=== PATIENT | female | born 1965 | race Caucasian/White ===

== ENCOUNTER 2021-03-31 09:47 | Inpatient (IN) | payer MEDICARE, SELFPAY ==
[2021-03-31] VITALS (8 sets, daily range): BP systolic 142–226; BP diastolic 68–97; PULSE 73–117; RESP 16–20; TEMP 36.8–37; O2SAT 90–98; BMI 25.0; BMI 25.9; BMI 24.9
--- NOTE | 2021-03-31 | IR_ITS ---
APPROVED REPORT Patient Location: Inpatient Radio Electronics Officer: MAHI Rosario RT (R) PROCEDURES Catheter placement in the left common iliac artery Left common iliac. External iliac. And common femoral artery angiography Catheter placement in the left superficial femoral artery Left superficial femoral artery antegrade angiogram with unilateral runoff to the left foot INDICATION Gage claudication class , Preoperative evaluation for transmetatarsal amputation Informed consent was obtained prior to the procedure. COMPLICATIONS None Estimated Blood Loss: Less than 10 ML TECHNIQUE 1% lidocaine used anesthetize right groin the right from artery was accessed via the Salinger technique and a five Greenlandic sheath was placed in the right femoral artery. A rim catheter was placed in the left common iliac artery where unilateral iliofemoral angiography was performed. Under fluoroscopic guidance the catheter was advanced into the left superficial femoral artery where the left superficial femoral artery antegrade angiography was performed with unilateral runoff to the left foot. At the end of the procedure the apparatus was removed the sheath was removed good hemostasis was achieved using manual pressure patient was transferred to the postop already in stable condition. ANGIOGRAPHIC RESULTS Left common internal and external iliac arteries are widely patent Left common femoral artery is widely patent with mild eccentric 10% calcified stenosis Left profunda femoris artery is widely patent Left superficial femoral artery is widely patent with diffuse nonflow limiting 40% stenoses throughout. At Karl's canal there is an additional 40% stenosis as the artery transitions into the popliteal artery. Left popliteal artery is widely patent with diffuse 30% stenoses Left PT trunk has 30% stenosis Left anterior tibialis artery is widely patent with nonflow limiting mild atherosclerotic plaque. The vessel terminates into the dorsalis pedis artery. The midportion of the dorsalis pedis artery has a mid vessel subtotal occlusion. Distally there is good phalangeal perfusion of the first four great toes Left peroneal artery is widely patent with a mid vessel 80% stenosis which is nonflow limiting. There is excellent antegrade flow into the proximal portion of the left foot Left posterior tibialis artery is proximally subtotally occluded and then completely occluded in its mid segment but then reconstitutes distally from collaterals from the AT and peroneal artery. It then enters into the left posterior tibial artery and enters the foot IMPRESSION Peripheral artery disease as described above Patent 2-1/2 vessel runoff into the left foot Patient primarily has a small vessel microvasculopathy which is not amenable to either surgical nor percutaneous revascularization at this time due to the lack of macrovascular focal disease PLAN 1. From a percutaneous or surgical standpoint there is nothing which can be invasively performed which will improve patient's [place] circulation. Based on the angiogram it appears as though patient would heal a transmetatarsal amputation without difficulty 2. Recommend LDL less than fifty-five 3. Aggressive control of risk factors especially aggressive perioperative glycemic control 4. Following amputation patient should continue on Xarelto 2.5 mg p.o. twice daily plus aspirin 81 mg daily 5. Avoidance of tobacco products 6. Physical therapy Electronically signed by : Cliff Wallis MD 03/31/2021 23:14:40
--- NOTE | 2021-03-31 10:17 | HMH.EDGENADL ---
ED Disposition Clinical Impression: Osteomyelitis Qualifiers: Osteomyelitis type: unspecified type Osteomyelitis location: foot Laterality: left Qualified Code(s): M86.9 - Osteomyelitis, unspecified Disposition: Admitted As Inpatient Condition on Discharge: Fair Instructions: DI for Laceration Repair Referrals: Provider,Referral, [Primary Care Provider] - - Critical Care Critical Care Time: No Attestation: On 03/31/21, the high probability of a clinically significant, sudden or life threatening deterioration of the following system(s) required my full and direct attention, intervention and personal management. The time I documented below is in addition to time spent performing reported procedures but includes the following listed in this critical care notation. Medical Decision Making - Medical Records Medical records reviewed: Yes: I reviewed the patient's medical records. - Eben Inquiry Pt receiving controlled substance: No Vital Signs: 03/31/21 09:48 03/31/21 11:01 03/31/21 12:49 Temperature 98.4 F Temperature Source Oral Pulse Rate 94 H Pulse Rate [Right Radial] 117 H Respiratory Rate 18 Blood Pressure 174/81 H Blood Pressure [Left Ankle] 162/88 H Blood Pressure [Left Arm] 226/90 H 154/70 H Blood Pressure [Right Ankle] 142/68 H Blood Pressure [Right Arm] 158/76 H Blood Pressure Mean [Left Ankle] 112 Blood Pressure Mean [Left Arm] 135 98 Blood Pressure Mean [Right Ankle] 92 Blood Pressure Mean [Right Arm] 103 Blood Pressure Source [Left Ankle] Manual Cuff/ Auscultation Blood Pressure Source [Left Arm] Automatic Cuff Manual Cuff/ Auscultation Blood Pressure Source [Right Ankle] Manual Cuff/ Auscultation Blood Pressure Source [Right Arm] Manual Cuff/ Auscultation Blood Pressure Position [Left Ankle] Supine Blood Pressure Position [Left Arm] Sitting Supine Blood Pressure Position [Right Ankle] Supine Blood Pressure Position [Right Arm] Supine 02 Sat by Pulse Oximetry 96 96 Oxygen Delivery Method Room Air Room Air - Lab Data Lab results reviewed: Yes: I reviewed the patient's lab results. Lab Results 03/31/21 10:27: VBG pH 7.37, VBG pCO2 42.5, VBG pO2 65.1 H, VBG HCO3 23.8, VBG Total CO2 25.1, VBG O2 Saturation 93.4 H, VBG Base Excess -1.6 03/31/21 11:50: WBC 9.5, RBC 4.82, Hgb 13.5, Hct 42.0, MCV 87.1, MCH 28.0, MCHC 32.1, RDW 13.3, Plt Count 369, MPV 7.6, Neut % (Auto) 76.2, Lymph % (Auto) 16.1, [place] % (Auto) 4.1, Eos % (Auto) 1.5, Baso % (Auto) 2.0, Neut # (Auto) 7.2, Lymph # (Auto) 1.5, [place] # (Auto) 0.4, Eos # (Auto) 0.1, Baso # (Auto) 0.2, ESR 88 H 03/31/21 11:50: Sodium 136, Potassium 3.9, Chloride 101, Carbon Dioxide 27, Anion Gap 11.9, BUN 18 H, Creatinine 0.60, Estimated Creat Clear 119, Estimated GFR 103, Est GFR ( Amer) 125, Glucose 179 H, Calcium 9.5, Total Bilirubin 0.5, AST 31, ALT 12, Alkaline Phosphatase 130 H, C-Reactive Protein 33.2 H, Total Protein 8.0, Albumin 4.4, Globulin 3.6 H, Albumin/Globulin Ratio 1.2 Result diagrams: 03/31/21 11:50 03/31/21 11:50 Orders (Tests/Meds): ED MEDICATIONS Generic Name Dose Route Start Last Admin Trade Name Freq PRN Reason Stop Dose Admin Piperacillin Sod/Tazobactam 100 mls @ 200 mls/hr 03/31/21 13:15 Sod 4.5 gm/ Sodium Chloride IV 04/14/21 13:14 Q6H EUGENIA Lactated Ringer's 500 mls @ 999 mls/hr 03/31/21 13:15 Lactated Ringer's 1000 Ml Bag IV 03/31/21 13:45 .Q31M EUGENIA Sodium Chloride 10 ml 03/31/21 11:40 Sodium Chloride 0.9% 10ml Flush Syringe IV 04/30/21 11:39 NEEDED PRN Maintain IV Site Vancomycin HCl 1,500 mg 04/01/21 09:00 Vancomycin 1000mg Vial IV 04/15/21 08:59 DAILY EUGENIA ORDERS Category Date Time Status CT foot LT wo con Stat Cat Scan 03/31/21 13:03 Ordered Lactic Acid Stat Lab 03/31/21 13:08 Ordered Blood Culture Stat Micro 03/31/21 13:13 Ordered Blood Culture Stat Micro 03/31/21 13:13 Ordered Medical Decis
--- NOTE | 2021-03-31 10:25 | XR_ITS ---
FINAL REPORT CLINICAL HISTORY: concern for osteo, OPEN SORES ON TOES, BLACK AREAS ON GREAT TOE FINDINGS: 2 views of the left foot were obtained. There is no acute fracture or dislocation. There are moderate degenerative changes. There is chronic deformity of the 2nd and 3rd metatarsals that may represent sequela of prior fractures. There appears to be inferior subluxation of the midfoot. There is no acute bony erosion to suggest osteomyelitis. There are calcaneal spurs. IMPRESSION: Degenerative and chronic changes. No findings to suggest osteomyelitis. If indicated, MRI would be more sensitive to evaluate for osteomyelitis. Reviewed, Interpreted and Dictated by Brien Jacobs III, MD Transcribed by Tristan Tee Authenticated by Brien Jacobs III, MD on 03/31/2021 11:37:45 AM [facility]
--- NOTE | 2021-03-31 10:25 | XR_ITS ---
FINAL REPORT CLINICAL HISTORY: concern for osteo, open sores on toes FINDINGS: Right foot series 2 views of the right foot were obtained. There are postoperative changes of amputation of the great toe at the first MTP joint. There are chronic appearing erosions of the fourth and fifth proximal phalanges. There is erosion of the fourth middle phalanx of indeterminate age. There is an old healed fracture of the fifth metatarsal. There is an old healed fracture of the second proximal phalanx. There is no acute fracture or dislocation. There are moderate degenerative changes. There are calcaneal spurs. There is no soft tissue abnormality. IMPRESSION: 1. Chronic appearing erosions of the fourth and fifth proximal phalanges. 2. Erosion of the fourth middle phalanx is age-indeterminate. Reviewed, Interpreted and Dictated by Brien Jacobs III, MD Transcribed by CLARK Obando Authenticated by Brien Jacobs III, MD on 03/31/2021 12:47:[address] [facility]
--- NOTE | 2021-03-31 10:29 | PC.NURSE ---
Pt gone to rad for xray.
--- NOTE | 2021-03-31 10:35 | PC.NURSE ---
Pt back from rad.
--- NOTE | 2021-03-31 10:36 | PC.NURSE ---
Dr. Graves would like to have a diabetic wound to L>R foot evaluation. Called Podiatry and Jennifer GOODMAN will consult d/t Dr. Garces out today.
--- NOTE | 2021-03-31 12:00 | PC.NURSE ---
Notified RT of blood being available in lab for VBG
[2021-03-31 12:05] LABS: Chloride 101 mmol/L (98-107)
[2021-03-31 12:06] LABS: VBG Base Excess -1.6 mmol/L (-2.4-2.3); VBG HCO3 23.8 mmol/L (23-30); VBG Oxygen Saturation 93.4 % (50-70); VBG PCO2 42.5 mmol/L (35-51); VBG PH 7.37 mmol/L (7.31-7.41); VBG PO2 65.1 mmol/L (28-40); VBG Total CO2 25.1 mmol/L (23-27)
[2021-03-31 12:06] LABS: Potassium 3.9 mmoL/L (3.5-5.1); Sodium 136 mmol/L (136-145)
[2021-03-31 12:08] LABS: Alanine Aminotransferase 12 U/L (12-78); Albumin Level 4.4 g/dl (3.5-5.0); Albumin/Globulin Ratio 1.2 (1.1-1.8); Alkaline Phosphatase 130 U/L (38-126); Anion Gap 11.9 mEq/L (5-15); Aspartate Amino Transferase 31 U/L (14-36); Bilirubin,Total 0.5 mg/dl (0.2-1.3); Blood Urea Nitrogen 18 mg/dl (7-17); Carbon Dioxide 27 mmol/L (22.0-30.0); Creatinine Clearance Estimated 119 mL/min (50-200); Estimated Glomerular Filt Rate 103 ml/min (>60); GFR (African American) 125 ML/MIN (>60); Globulin 3.6 g/dL (1.3-3.2)
[2021-03-31 12:09] LABS: Basophils # 0.2 K/mm3 (0-0.2); Calcium 9.5 mg/dl (8.4-10.2); Eosinophils # 0.1 K/mm3 (0.0-0.4); Eosinophils % 1.5 % (0.1-12.0); Glucose 179 mg/dl (74-100); Hemoglobin 13.5 g/dL (12.2-16.2); Lymphocytes # 1.5 K/mm3 (0.7-4.5); Lymphocytes % 16.1 % (10-50); Mean Corpuscular HGB Conc 32.1 g/dL (31.8-35.4); Mean Corpuscular Volume 87.1 fl (81-99); Mean Platelet Volume 7.6 fl (7.4-10.4); Monocytes # 0.4 K/mm3 (0.1-1.0); Monocytes % 4.1 % (1.7-9.3); Neutrophils # 7.2 K/mm3 (1.8-7.8); Neutrophils % 76.2 % (37.0-80.0); Platelet Count 369 K/mm3 (142-424); Red Blood Count 4.82 M/mm3 (4.20-5.40); Red Cell Distribution Width 13.3 % (11.5-17.5); White Blood Count 9.5 K/mm3 (4.8-10.8)
[2021-03-31 12:14] LABS: C-Reactive Protein 33.2 mg/L (0-4)
[2021-03-31 12:50] LABS: Erythrocyte Sedimentation Rate 88 mm/hr (0-30)
--- NOTE | 2021-03-31 13:01 | PC.NURSE ---
s/w Alma with Dr. Garces's office. She reports Dr. Garces would like CT L foot wo contrast. Also, is pt is adx she will not be on-call this weekend and earliest she can have any intervention is needed, would be Saturday (04/03).
--- NOTE | 2021-03-31 13:02 | PC.NURSE ---
Calling MD retention specialist for service at this time, Dr Driver.
--- NOTE | 2021-03-31 13:03 | CT_ITS ---
FINAL REPORT CLINICAL HISTORY: r/o osteomyelitis lt foot, attn lt great toe COMPARISON: Plain radiograph dated the same day FINDINGS: CT LEFT FOOT WITHOUT CONTRAST Technique: Axial images through the left foot were performed by computed tomography. Sagittal and coronal reconstruction images were performed. This study was performed with techniques to keep radiation doses as low as reasonably achievable (ALARA). Individualized dose reduction techniques using automated exposure control or adjustment of mA and/or kV according to the patient's size were employed. There are moderate degenerative changes. There is chronic deformity of the 2nd and 3rd metatarsals. There is no acute bony erosion. There is soft tissue swelling of the great toe with a small amount of soft tissue air. There is dorsal foot subcutaneous edema or cellulitis. IMPRESSION: Soft tissue swelling of the great toe with a small amount of soft tissue air. No acute bony erosion. Moderate degenerative change. Reviewed, Interpreted and Dictated by Brien Jacobs III, MD Transcribed by Tristan Tee Authenticated by Brien Jacobs III, MD on 03/31/2021 02:06:52 PM [facility]
--- NOTE | 2021-03-31 13:12 | PC.NURSE ---
Pt to CT
--- NOTE | 2021-03-31 13:13 | PC.NURSE ---
to pt CT scan via wheelchair
--- NOTE | 2021-03-31 13:16 | PC.NURSE ---
Dr. Graves s/w Dr. Driver, agrees for adx. Care management paged.
--- NOTE | 2021-03-31 13:16 | PC.NURSE ---
Labs and COVID swab sent to lab at this time
--- NOTE | 2021-03-31 13:18 | PC.NURSE ---
Spoke with Erin in Case Management to advise of admission
--- NOTE | 2021-03-31 13:21 | P.CONPHA_ITS ---
- Pharmacy Consult Date: 03/31/21 Time: 13:22 Referring provider: DR. AYALA Reason for Consult:: VANCOMYCIN DOSING Allergies and ADEs:: Allergies Allergy/AdvReac Type Severity Reaction Status Date / Time No Known Allergies Allergy Verified 03/31/21 10:30 Home Medications:: Home Medications Medication Instructions Recorded Confirmed Type No Known Home Medications 03/31/21 03/31/21 History Height: 1.7 m Weight: 72.575 kg Laboratory Results:: Laboratory Results - last 24 hr 03/31/21 10:27: VBG pH 7.37, VBG pCO2 42.5, VBG pO2 65.1 H, VBG HCO3 23.8, VBG Total CO2 25.1, VBG O2 Saturation 93.4 H, VBG Base Excess -1.6 03/31/21 11:50: WBC 9.5, RBC 4.82, Hgb 13.5, Hct 42.0, MCV 87.1, MCH 28.0, MCHC 32.1, RDW 13.3, Plt Count 369, MPV 7.6, Neut % (Auto) 76.2, Lymph % (Auto) 16.1, [place] % (Auto) 4.1, Eos % (Auto) 1.5, Baso % (Auto) 2.0, Neut # (Auto) 7.2, Lymph # (Auto) 1.5, [place] # (Auto) 0.4, Eos # (Auto) 0.1, Baso # (Auto) 0.2, ESR 88 H 03/31/21 11:50: Sodium 136, Potassium 3.9, Chloride 101, Carbon Dioxide 27, Anion Gap 11.9, BUN 18 H, Creatinine 0.60, Estimated Creat Clear 119, Estimated GFR 103, Est GFR ( Amer) 125, Glucose 179 H, Calcium 9.5, Total Bilirubin 0.5, AST 31, ALT 12, Alkaline Phosphatase 130 H, C-Reactive Protein 33.2 H, Total Protein 8.0, Albumin 4.4, Globulin 3.6 H, Albumin/Globulin Ratio 1.2 Assessment and Plan - Assessment and plan all Dx Assessment and Plan for all problems:: Pharmacokinetic dosing service Objective: Patient: Floor: Age: 55 yo Serum creatinine: 0.60 mg/dL Height: 66.9 Inches Weight (kg): 72.5 Assessment: IBW (kg): 61.37 Dosing wt(kg): 72.5 Estimated Creatinine clearance (ml/min): 100.2 CRCL method: Cockcroft and Gault using ibw(default). Drug selected: Vancomycin Loading dose (mg): Vd (liters): 50.8 (factor used: 0.7 L/kg) Geoffrey (hr-1): 0.088 Half life (hrs): 7.88 CLvanco=?? 4.470 L/hr Recommended dose: 1250 mg Interval: 12 hrs Infusion time (hrs): 2.0 Predicted peak (mcg/mL): 34.6 Predicted trough (mcg/mL): 14.35 Total body weight is being used for vancomycin dosing. Recommendations: Give Vancomycin 1250 mg q 12 hrs with an expected Cpeak of 34.6 mcg/ml and an expected Ctrough of 14.35 mcg/ml AUC 0-24 /ISAI Data: ISAI 0.5 mcg/mL:?? AUC/ISAI:? 1118.6 ISAI 1.0 mcg/mL:?? AUC/ISAI:? 559.3 --------- ISAI 1.5 mcg/mL:?? AUC/ISAI:? 372.9 ISAI 2.0 mcg/mL:?? AUC/ISAI:? 279.6 Thank you for the consult, will continue to follow. -WOOD COSTELLO, ROBIND
--- NOTE | 2021-03-31 14:33 | HMH.HP ---
*Admission Date: 03/31/21 <BharathKlarissa - 03/31/21 15:49> *Chief complaint: foot wound <Klarissa Sinha - 03/31/21 15:49> *History of present illness: Rajni is a 55-year-old female with a history of poorly controlled type 2 diabetes presenting for chief complaint of left foot wound. She states that for the past week, she has been having increasing skin changes on her left toe. She states it started off as a blister, which then popped and has now turned black with a area of worsening erythema. Patient also had an amputation of great toe on her right foot and has an open wound there but does not seem concerned. Patient states she is not compliant with her diabetes medications. She denies upper respiratory symptoms, chest pain, dyspnea, and/V/D, changes GI/. She denies unilateral leg swelling. She believes she had a fever at home but did not measure her temperature. Patient is a 55-year-old female with a history of hypertension and diabetes mellitus, with poor compliance with medications, presenting for chief complaint of left foot wound. Differential diagnosis includes, but is not limited to, diabetic foot infection, diabetic foot wound, osteomyelitis, arterial occlusion, other. Initial exam, patient is hypertensive and mildly tachycardic but states that she has not been compliant with her hypertension medications. She took her home dose. Patient is afebrile. Physical exam shows palpable DP pulses bilaterally. Patient has necrotic tissue on the lateral side of her great left toe with erythema extending towards the midfoot. She was evaluated with CBC, CMP, CRP, ESR and x-rays of both her feet. Diabetic wound care consult was placed. Patient's labwork is significant for elevated ESR of 88 and elevated CRP, raising concern for osteomyelitis despite no radiographic evidence on XR of feet. Wound care recommended evaluation with CT imaging. Given concern for osteomyelitis, patient was admitted for IV antibiotics. She was started on zosyn and vancomycin in the emergency department. (above as per ER physician) <Klarissa Sinha - 03/31/21 17:05> [facility] History I have reviewed the patient's past medical history: Yes <Klarissa Sinha 03/31/21 15:49> Medical History: Reports:: Diabetes Mellitus Type 2, Hyperlipidemia, Hypertension <Klarissa Sinha 03/31/21 17:05> *Have you ever received a pneumonia vaccine?: No <Klarissa Sinha 03/31/21 15:49> *Have you received a flu vaccine this season?: No <Klarissa Sinha 03/31/21 15:49> Other Surgeries: Yes: Tubal Ligation <Klarissa Sinha 03/31/21 17:05> Comment: right great toe amputation from foot ulcer <Klarissa Sinha 03/31/21 17:05> - *Social History Smoking Status: Current every day smoker <Klarissa Sinha 03/31/21 17:05> # Packs/Day (cigarettes): 1 <Klarissa Sinha 03/31/21 17:05> Alcohol Intake: never <Klarissa Sinha 03/31/21 17:05> *Occupational Status:: unemployed <Klarissa Sinha 03/31/21 17:05> *Travel in the last 8 weeks: None <Klarissa Sinha 03/31/21 17:05> Family Hx:: Diabetes <Klarissa Sinha 03/31/21 17:05> Review of Systems - Constitutional Reports chills, Reports fever(s), Reports weakness <Klarissa Sinha 03/31/21 17:05> - Eyes Denies blurry vision, Denies double vision <Klarissa Sinha 03/31/21 17:05> - ENT Denies nasal congestion, Denies sore throat <Klarissa Sinha 03/31/21 17:05> - *Cardiovascular Denies chest pain, Denies shortness of breath <Klarissa Sinha 03/31/21 17:05> - *Respiratory Denies cough, Denies shortness of breath <Klarissa Sinha 03/31/21 17:05> - *Gastrointestinal Denies abdominal pain, Denies loose stools, Denies nausea, Denies vomiting <Klarissa Sinha 03/31/21 17:05> - *Genitourinary Denies difficulty urinating, Denies painful urination <Klarissa Sinha 03/31/21 17:05> - *Musculoskeletal Reports joint pain (left foot) <Klarissa Sinha 03/31/21 17:05> - Integumentary/Breasts Reports skin ulcer (left great toe) <Phlebotomy Lab Assistant
--- NOTE | 2021-03-31 14:37 | US_ITS ---
FINAL REPORT CLINICAL HISTORY: WOUNDS RT 2ND TOE,WOUNDS LT GREAT TOE,LT 2ND AND 3RD TOE,LT GREAT TOE IS BLACK IN COLOR,RT GREAT TOE HAS BEEN AMPUTATED,DM,SMOKER,HTN,HLD FINDINGS: Ankle brachial indices was obtained. ANGELY on the right is 0.92 which is borderline. ANGELY on the left is 1.07 which is normal. IMPRESSION: Borderline ANGELY on the right. Normal ANGELY on the left. Reviewed, Interpreted and Dictated by Brien Jacobs III, MD Transcribed by Debbie Cottrell Authenticated by Brien Jacobs III, MD on 03/31/2021 04:09:18 PM [facility]
[2021-03-31 14:40] LABS: Coronavirus 19, PCR Not Detected (NotDetected); Influenza A, PCR Not Detected (NotDetected); Influenza B, PCR Not Detected (NotDetected)
[2021-03-31 14:52] LABS: POC Glucose,Bedside 106 (70-110)
--- NOTE | 2021-03-31 15:21 | PC.NURSE ---
Rashmi Sinha at bedside
--- NOTE | 2021-03-31 15:48 | PC.NURSE ---
dr. small at BS
--- NOTE | 2021-03-31 15:59 | P.CONPHA_ITS ---
[facility] Pharmacy VTE Monitoring - Patient Demographics Admission date: 03/31/21 Report Date: 03/31/21 Time: 15:59 Allergies/Adverse Reactions: Patient Allergies No Known Allergies Allergy (Verified 03/31/21 10:30) Height: 1.7 m Weight: 72 kg Patient Problems: Current Active Problems Osteomyelitis (Acute) - VTE Risk Labs: VTE Related Lab Results Hgb 13.5 g/dL (12.2-16.2) 03/31/21 11:50 Hct 42.0 % (37.0-47.0) 03/31/21 11:50 Plt Count 369 K/mm3 (142-424) 03/31/21 11:50 BUN 18 mg/dl (7-17) H 03/31/21 11:50 Creatinine 0.60 mg/dl (0.52-1.04) 03/31/21 11:50 Estimated Creat Clear 119 mL/min (50-200) 03/31/21 11:50 - Prophylaxis VTE Prophylaxis Ordered?: Yes Types of VTE Prophylaxis: TEDS Knee High Location of Applied Device: Right Leg
--- NOTE | 2021-03-31 16:45 | XR_ITS ---
PROCEDURE INFORMATION: Exam: XR Chest Exam date and time: 03/31/2021 4:45 PM Age: 55 years old Clinical indication: Pre-operative exam; Respiratory screening exam; Additional info: Surgical clearance TECHNIQUE: Imaging protocol: XR of the chest. Views: 2 views. COMPARISON: No relevant prior studies available. FINDINGS: Lungs: Unremarkable. No consolidation. Pleural spaces: Unremarkable. No pleural effusion. No pneumothorax. Heart/Mediastinum: Unremarkable. No cardiomegaly. Bones/joints: Unremarkable. IMPRESSION: No acute findings.
--- NOTE | 2021-03-31 17:13 | PC.NURSE ---
NOTIFED OF CONSULT
--- NOTE | 2021-03-31 17:38 | PC.WOUNDNOTE ---
Photos and assessment by Yenni Arevalo RN R amputated big toe with purulent drainage Eschar R internal big toe with extension to 2nd and 3rd toe
--- NOTE | 2021-03-31 18:53 | PC.NURSE ---
Bilateral foot wounds cleaned with urgical iodine, wrapped in kerlix. Please refer to wound care note. will pass on to next shift to change dressings as needed
--- NOTE | 2021-03-31 19:45 | PC.NURSE ---
bilateral LE wounds cleansed with sx iodine and wrapped in kerlix
--- NOTE | 2021-03-31 22:22 | PC.NURSE ---
PT OFF FLOOR VIA STRETCHER TO ACID BLEACHER W/STAFF @ [id number]
--- NOTE | 2021-03-31 23:42 | PC.NURSE ---
PT BACK TO FLOOR FROM CHIEF DISPATCHER AT THIS TIME.
[2021-04-01] VITALS (17 sets, daily range): BP systolic 121–216; BP diastolic 73–99; PULSE 76–102; RESP 16–18; TEMP 36.8–37.5; O2SAT 90–94; BMI 24.9
[2021-04-01 00:52] LABS: POC Glucose,Bedside 121 (70-110)
--- NOTE | 2021-04-01 01:31 | PC.NURSE ---
2223; metallurgical lab technician called and asked to get pt ready for metallurgical lab technician neymar, pt prepped for metallurgical lab technician for percutaneous intervention to lower extremity, pt shaved bilateral groin, pt verbalized understanding. pt taken to metallurgical lab technician via stretcher in satisfactory condition. report to metallurgical lab technician personnel given.
--- NOTE | 2021-04-01 05:57 | PC.NURSE ---
pt s/p percutaneus cath for pictures for surgery clearance, pt with dressing to right groin cdi, pt hypertensive post cath and hydralazine was given iv x1, fsbs 251 at 0400, pt with nausea and vomiting post cath and medicated with zofran, no n/v since noted. dressings to bilateral foot wounds. bilateral lower extremities warm to touch and cap refill noted <3sec. pulses are not easily palpable to bilateral lower extremities as upon admission.
[2021-04-01 06:31] LABS: Basophils % 0.2 % (0.1-2.0); Eosinophils % 0.1 % (0.1-12.0); Hemoglobin 12.3 g/dL (12.2-16.2); Lymphocytes # 0.4 K/mm3 (0.7-4.5); Lymphocytes % 3.8 % (10-50); Mean Corpuscular HGB Conc 31.6 g/dL (31.8-35.4); Mean Corpuscular Hemoglobin 28.1 pg (27.0-31.2); Mean Platelet Volume 7.7 fl (7.4-10.4); Monocytes # 0.2 K/mm3 (0.1-1.0); Monocytes % 1.4 % (1.7-9.3); Neutrophils # 10.7 K/mm3 (1.8-7.8); Neutrophils % 94.5 % (37.0-80.0); Platelet Count 336 K/mm3 (142-424); Red Blood Count 4.38 M/mm3 (4.20-5.40); Red Cell Distribution Width 13.3 % (11.5-17.5); White Blood Count 11.3 K/mm3 (4.8-10.8)
[2021-04-01 06:35] LABS: MANUAL DIFFERENTIAL MANUAL DIFFERENTIAL (MANUAL DIFF)
[2021-04-01 06:41] LABS: Chloride 103 mmol/L (98-107); Sodium 133 mmol/L (136-145)
[2021-04-01 06:42] LABS: Potassium 4.5 mmoL/L (3.5-5.1)
[2021-04-01 06:45] LABS: Anion Gap 13.5 mEq/L (5-15); Calcium 8.3 mg/dl (8.4-10.2); Carbon Dioxide 21 mmol/L (22.0-30.0); Glucose 233 mg/dl (74-100)
[2021-04-01 06:50] LABS: Blood Urea Nitrogen 17 mg/dl (7-17); Creatinine Clearance Estimated 88 mL/min (50-200); Estimated Glomerular Filt Rate 74 ml/min (>60); GFR (African American) 89 ML/MIN (>60)
[2021-04-01 07:07] LABS: Hypochromasia 1+; Lymphocytes % 11 % (10-50); Monocytes % 2 % (2-9); Neutrophils % 84 % (42-76); Platelet Estimate Normal; Total Cells Counted 100
--- NOTE | 2021-04-01 07:08 | ECG_ITS ---
APPROVED REPORT Exam: Resting ECG HR:87 bpm ECG Measurements Heart Rate 87 AXES ND 191 P 69 QRSd 94 QRS 37 QT 379 T 74 QTc 423 Conclusion SINUS RHYTHM POSSIBLE LEFT ATRIAL ENLARGEMENT [-0.1mV P-WAVE IN V1/V2] BORDERLINE ECG UNCONFIRMED REPORT Electronically signed by : Cody Mckeon MD 04/02/2021 14:35:31
[2021-04-01 07:49] LABS: Hemoglobin A1C 10.5 % (4.0-6.0)
--- NOTE | 2021-04-01 08:45 | HMH.ACPN2 ---
Internal Medicine - PN: Subj *Date: 04/01/21 *Time: 08:45 Interval history: Did not rest well. Complains of left low back pain since her vascular procedure yesterday. Exam Vital signs and Labs for Last 24 Hours: Temp Pulse Resp BP Pulse Ox 99.5 F 92 H 17 172/90 H 92 L 04/01/21 08:00 04/01/21 08:00 04/01/21 08:00 04/01/21 08:00 04/01/21 08:00 Laboratory Results - last 24 hr 03/31/21 10:27: VBG pH 7.37, VBG pCO2 42.5, VBG pO2 65.1 H, VBG HCO3 23.8, VBG Total CO2 25.1, VBG O2 Saturation 93.4 H, VBG Base Excess -1.6 03/31/21 11:50: WBC 9.5, RBC 4.82, Hgb 13.5, Hct 42.0, MCV 87.1, MCH 28.0, MCHC 32.1, RDW 13.3, Plt Count 369, MPV 7.6, Neut % (Auto) 76.2, Lymph % (Auto) 16.1, [place] % (Auto) 4.1, Eos % (Auto) 1.5, Baso % (Auto) 2.0, Neut # (Auto) 7.2, Lymph # (Auto) 1.5, [place] # (Auto) 0.4, Eos # (Auto) 0.1, Baso # (Auto) 0.2, ESR 88 H 03/31/21 11:50: Sodium 136, Potassium 3.9, Chloride 101, Carbon Dioxide 27, Anion Gap 11.9, BUN 18 H, Creatinine 0.60, Estimated Creat Clear 119, Estimated GFR 103, Est GFR ( Amer) 125, Glucose 179 H, Calcium 9.5, Total Bilirubin 0.5, AST 31, ALT 12, Alkaline Phosphatase 130 H, C-Reactive Protein 33.2 H, Total Protein 8.0, Albumin 4.4, Globulin 3.6 H, Albumin/Globulin Ratio 1.2 03/31/21 13:14: Lactate 1.0 03/31/21 13:14: SARS-CoV-2 (PCR) Not detected, Influenza A Untype (PCR) Not detected, Influenza Type B (PCR) Not detected 03/31/21 14:37: POC Glucose 106 03/31/21 21:24: POC Glucose 121 H 04/01/21 05:22: Hemoglobin A1c 10.5 H 04/01/21 05:22: WBC 11.3 H, RBC 4.38, Hgb 12.3, Hct 39.0, MCV 89.0, MCH 28.1, MCHC 31.6 L, RDW 13.3, Plt Count 336, MPV 7.7, Neut % (Auto) 94.5 H, Lymph % (Auto) 3.8 L, [place] % (Auto) 1.4 L, Eos % (Auto) 0.1, Baso % (Auto) 0.2, Neut # (Auto) 10.7 H, Lymph # (Auto) 0.4 L, [place] # (Auto) 0.2, Eos # (Auto) 0.0, Baso # (Auto) 0.0, Total Counted 100, Neutrophils % (Manual) 84 H, Band Neutrophils % 3.0, Lymphocytes % (Manual) 11, Monocytes % (Manual) 2, Platelet Estimate Normal, Hypochromasia 1+ 04/01/21 05:22: Sodium 133 L, Potassium 4.5, Chloride 103, Carbon Dioxide 21 L, Anion Gap 13.5, BUN 17, Creatinine 0.80 D, Estimated Creat Clear 88, Estimated GFR 74, Est GFR ( Amer) 89 D, Glucose 233 H D, Calcium 8.3 L I & O for Last 24 hours: Intake & Output 03/29/21 03/30/21 03/31/21 04/01/21 11:59 11:59 11:59 11:59 Intake Total 1810 / 1810 Output Total 600 / 600 Balance 1210 / 1210 Weight 160 lb 158 lb 11.725 oz Narrative: She is mildly hard of hearing. Appears in no acute distress. Chest with coarse breath sounds. Heart is regular. Exam of the left lower back shows mild bruising or discoloration. Mild tenderness around the SI area. Lower extremities show no edema. Dressing in place on foot wounds. Assessment and Plan (1) Osteomyelitis Status: Acute Qualifiers: Osteomyelitis type: unspecified type Osteomyelitis location: foot Laterality: left Qualified Code(s): M86.9 - Osteomyelitis, unspecified Category: Medical Code(s): M86.9 - Osteomyelitis, unspecified (2) Type 2 diabetes mellitus Status: Chronic Category: Medical Code(s): E11.9 - Type 2 diabetes mellitus without complications (3) Hypertension Status: Chronic Category: Medical Code(s): I10 - Essential (primary) hypertension (4) Hyperlipidemia Status: Chronic Category: Medical Code(s): E78.5 - Hyperlipidemia, unspecified (5) Noncompliance with medication regimen Status: Chronic Category: Medical Code(s): Z91.14 - Patient's other noncompliance with medication regimen (6) Tobacco abuse Status: Acute Category: Medical Code(s): Z72.0 - Tobacco use (7) Diabetic microangiopathy Status: Acute Category: Medical Code(s): E11.51 - Type 2 diabetes mellitus with diabetic peripheral angiopathy without gangrene - Assessment and plan all Dx Assessment and Plan for all problems:: Blood pressure is not well controlled. We will add Nor
--- NOTE | 2021-04-01 11:33 | PC.NURSE ---
spoke with Dr. Driver regarding resuming pt diet
--- NOTE | 2021-04-01 11:43 | HMH.ORTHOCON ---
*Admission Date: 03/31/21 *Reason for consult:: Left foot gangrene *History of present illness: Rajni is a 55-year-old female with a history of poorly controlled type 2 diabetes presenting for chief complaint of left foot wound. She states that for the past week, she has been having increasing skin changes on her left toe. She states it started off as a blister, which then popped and has now turned black with a area of worsening erythema. Patient also had an amputation of great toe on her right foot and has an open wound there but does not seem concerned. Patient states she is not compliant with her diabetes medications. She denies upper respiratory symptoms, chest pain, dyspnea, and/V/D, changes GI/. She denies unilateral leg swelling. She believes she had a fever at home but did not measure her temperature. Patient is a 55-year-old female with a history of hypertension and diabetes mellitus, with poor compliance with medications, presenting for chief complaint of left foot wound. Differential diagnosis includes, but is not limited to, diabetic foot infection, diabetic foot wound, osteomyelitis, arterial occlusion, other. Initial exam, patient is hypertensive and mildly tachycardic but states that she has not been compliant with her hypertension medications. She took her home dose. Patient is afebrile. Physical exam shows palpable DP pulses bilaterally. Patient has necrotic tissue on the lateral side of her great left toe with erythema extending towards the midfoot. She was evaluated with CBC, CMP, CRP, ESR and x-rays of both her feet. Diabetic wound care consult was placed. Patient's labwork is significant for elevated ESR of 88 and elevated CRP, raising concern for osteomyelitis despite no radiographic evidence on XR of feet. Wound care recommended evaluation with CT imaging. Given concern for osteomyelitis, patient was admitted for IV antibiotics. She was started on zosyn and vancomycin in the emergency department. [facility] History I have reviewed the patient's past medical history: Yes Medical History: Reports:: Diabetes Mellitus Type 2, Hyperlipidemia, Hypertension *Have you ever received a pneumonia vaccine?: No *Have you received a flu vaccine this season?: No Other Surgeries: Yes: Tubal Ligation - *Social History Smoking Status: Current every day smoker Tobacco Type: cigarettes # Packs/Day (cigarettes): 1 Alcohol Intake: never *Occupational Status:: unemployed Household Members: family *Travel in the last 8 weeks: None Family Hx:: Diabetes Review of Systems - Review of Systems Review of systems:: pertinent systems reviewed and negative unless documented below - Constitutional Reports fatigue - Eyes Denies blurry vision - ENT Denies abnormal hearing - *Cardiovascular Denies chest pain - *Respiratory Denies shortness of breath - *Gastrointestinal Reports nausea - *Genitourinary Denies abnormal periods - *Musculoskeletal Reports numbness - Integumentary/Breasts Reports hair loss, Reports nail changes, Reports non-healing lesions, Reports skin ulcer, Reports wounds - *Neurologic Reports numbness, Reports weakness, Reports other (Baseline numbness of of both feet ), Denies confusion, Denies localized weakness, Denies fainting Meds Home Medications Medication Instructions Recorded Confirmed Type No Known Home Medications 03/31/21 03/31/21 History Allergies Allergy/AdvReac Type Severity Reaction Status Date / Time No Known Allergies Allergy Verified 03/31/21 10:30 Exam Vital signs and Labs for Last 24 Hours: Temp Pulse Resp BP Pulse Ox 99.5 F 92 H 17 172/90 H 92 L 04/01/21 08:00 04/01/21 08:00 04/01/21 08:00 04/01/21 08:00 04/01/21 08:00 Laboratory Results - last 24 hr 03/31/21 10:27: VBG pH 7.37, VBG pCO2 42.5, VBG pO2 65.1 H, VBG HCO3 23.8, VBG Total CO2 25.1, VBG O2 Saturation 93.4 H, VBG Base Excess -1.6 03/31/21 11:50: WBC 9.5, RBC 4.82, Hgb 13.5, Hct 42.0, MCV
[2021-04-01 11:50] LABS: POC Glucose,Bedside 248 (70-110)
--- NOTE | 2021-04-01 17:00 | PC.NURSE ---
contacted MD regarding pt rash during vanc infusion. Ordered to stop Vanc
[2021-04-01 22:19] LABS: POC Glucose,Bedside 216 (70-110)
[2021-04-02] VITALS: BP 188/87; PULSE 101; RESP 19; TEMP 37.2; O2SAT 92
[2021-04-02 04:00] VITALS: BP 176/91; PULSE 94; RESP 17; TEMP 37.4; O2SAT 93
[2021-04-02 04:42] LABS: POC Glucose,Bedside 212 (70-110)
[2021-04-02 05:00] VITALS: BMI 23.8
[2021-04-02 08:00] VITALS: BP 161/78; PULSE 91; RESP 16; TEMP 37.2; O2SAT 92
--- NOTE | 2021-04-02 09:12 | HMH.ACPN2 ---
Internal Medicine - PN: Subj *Date: 04/02/21 *Time: 09:12 Interval history: No new complaints this morning. She broke out in a rash with her dose of vancomycin last evening and this was discontinued. Rash has since resolved. She has no previous history of allergic reactions. Exam Vital signs and Labs for Last 24 Hours: Temp Pulse Resp BP Pulse Ox 99.0 F 91 H 16 161/78 H 92 L 04/02/21 08:00 04/02/21 08:00 04/02/21 08:00 04/02/21 08:00 04/02/21 08:00 Laboratory Results - last 24 hr 04/01/21 08:40: POC Glucose 248 H 04/01/21 16:39: POC Glucose 216 H 04/02/21 04:23: POC Glucose 212 H I & O for Last 24 hours: Intake & Output 03/30/21 03/31/21 04/01/21 04/02/21 11:59 11:59 11:59 11:59 Intake Total 1930 / 1930 360 / 360 Output Total 1500 / 1500 700 / 700 Balance 430 / 430 -340 / -340 Weight 160 lb 158 lb 11.725 oz 152 lb Narrative: She appears in no distress. She is alert oriented. She is hard of hearing. Lungs are clear. Heart is regular. Assessment and Plan (1) Gangrene of left foot Status: Acute Category: Medical Code(s): I96 - Gangrene, not elsewhere classified (2) Diabetic microangiopathy Status: Acute Category: Medical Code(s): E11.51 - Type 2 diabetes mellitus with diabetic peripheral angiopathy without gangrene (3) Cellulitis of left foot Status: Acute Category: Medical Code(s): L03.116 - Cellulitis of left lower limb (4) Diabetic ulcer of right foot Status: Acute Category: Medical Code(s): E11.621 - Type 2 diabetes mellitus with foot ulcer; L97.519 - Non-pressure chronic ulcer of other part of right foot with unspecified severity (5) Osteomyelitis Status: Acute Qualifiers: Osteomyelitis type: unspecified type Osteomyelitis location: foot Laterality: left Qualified Code(s): M86.9 - Osteomyelitis, unspecified Category: Medical Code(s): M86.9 - Osteomyelitis, unspecified (6) Type 2 diabetes mellitus Status: Chronic Category: Medical Code(s): E11.9 - Type 2 diabetes mellitus without complications (7) Hypertension Status: Chronic Category: Medical Code(s): I10 - Essential (primary) hypertension (8) Hyperlipidemia Status: Chronic Category: Medical Code(s): E78.5 - Hyperlipidemia, unspecified (9) Noncompliance with medication regimen Status: Chronic Category: Medical Code(s): Z91.14 - Patient's other noncompliance with medication regimen (10) Tobacco abuse Status: Acute Category: Medical Code(s): Z72.0 - Tobacco use (11) PAD (peripheral artery disease) Status: Acute Category: Medical Code(s): I73.9 - Peripheral vascular disease, unspecified - Assessment and plan all Dx Assessment and Plan for all problems:: Vancomycin has been discontinued and she is started on clindamycin. Cardiology and podiatry consult notes reviewed. No plan for surgery tomorrow. Continue to monitor blood sugar and blood pressure which are improving. Patient is an acceptable medical risk to proceed with the planned surgery.
[2021-04-02 11:37] VITALS: BP 169/85; PULSE 94; RESP 16; TEMP 37.5; O2SAT 92
--- NOTE | 2021-04-02 14:09 | PC.NURSE ---
pt tolerated dressing change well. No foul odor noted from the sites of either foot. Pulses palpable to BLE.
[2021-04-02 16:00] VITALS: BP 169/98; PULSE 102; RESP 16; TEMP 37.7; O2SAT 92
[2021-04-02 20:00] VITALS: BP 186/78; PULSE 106; RESP 17; TEMP 37.2; O2SAT 92
[2021-04-02 22:51] LABS: POC Glucose,Bedside 151 (70-110)
[2021-04-03] VITALS (21 sets, daily range): BP systolic 103–173; BP diastolic 49–88; PULSE 79–99; RESP 16–20; TEMP 37.2–37.7; O2SAT 90–98; BMI 24.6
--- NOTE | 2021-04-03 04:50 | PC.NURSE ---
0300 iv to left forearm occluded and discontinued, abocath intact, new iv started above old one x1 stick #20g, pt tolerated well, flushed without difficulty, not signs of infiltration noted.
[2021-04-03 06:40] LABS: Basophils # 0.1 K/mm3 (0-0.2); Basophils % 0.4 % (0.1-2.0); Eosinophils % 0.1 % (0.1-12.0); Hematocrit 38.5 % (37.0-47.0); Hemoglobin 12.5 g/dL (12.2-16.2); Lymphocytes # 0.9 K/mm3 (0.7-4.5); Lymphocytes % 6.5 % (10-50); Mean Corpuscular HGB Conc 32.5 g/dL (31.8-35.4); Mean Corpuscular Hemoglobin 28.3 pg (27.0-31.2); Mean Corpuscular Volume 86.8 fl (81-99); Mean Platelet Volume 7.9 fl (7.4-10.4); Monocytes # 0.8 K/mm3 (0.1-1.0); Monocytes % 5.8 % (1.7-9.3); Neutrophils # 12.3 K/mm3 (1.8-7.8); Neutrophils % 87.2 % (37.0-80.0); Platelet Count 342 K/mm3 (142-424); Red Blood Count 4.43 M/mm3 (4.20-5.40); Red Cell Distribution Width 13.3 % (11.5-17.5); White Blood Count 14.1 K/mm3 (4.8-10.8)
[2021-04-03 06:47] LABS: MANUAL DIFFERENTIAL MANUAL DIFFERENTIAL (MANUAL DIFF)
[2021-04-03 06:58] LABS: Chloride 105 mmol/L (98-107); Potassium 3.4 mmoL/L (3.5-5.1); Sodium 133 mmol/L (136-145)
[2021-04-03 07:01] LABS: Anion Gap 5.4 mEq/L (5-15); Blood Urea Nitrogen 25 mg/dl (7-17); Calcium 8.2 mg/dl (8.4-10.2); Carbon Dioxide 26 mmol/L (22.0-30.0); Creatinine Clearance Estimated 58 mL/min (50-200); Estimated Glomerular Filt Rate 46 ml/min (>60); GFR (African American) 56 ML/MIN (>60); Glucose 106 mg/dl (74-100)
[2021-04-03 07:07] LABS: C-Reactive Protein 105.8 mg/L (0-4)
[2021-04-03 07:55] LABS: Erythrocyte Sedimentation Rate 105 mm/hr (0-30)
--- NOTE | 2021-04-03 08:09 | PC.NURSE ---
notified cardiology of consult
[2021-04-03 08:11] LABS: Lymphocytes % 7 % (10-50); Monocytes % 6 % (2-9); Neutrophils % 87 % (42-76); Total Cells Counted 100
[2021-04-03 08:12] LABS: Platelet Estimate Normal; RBC Morphology Normal
--- NOTE | 2021-04-03 08:25 | HMH.ORTHPN ---
Subjective Date: 04/03/21 <Jennifer Shah - 04/03/21 09:08> Time: 07:30 <Jennifer Shah 04/03/21 09:08> Principal diagnosis: left foot gangrene/Osteomyelitis <Jennifer Shah 04/03/21 09:08> Interval history: Patient seen and examined at bedside by and Jennifer Shah aprn. Patient resting in bed this morning. Alert and oriented x3. No distress noted. Discussed surgical intervention in detail with patient. Consent obtained for right foot incision and drainage, bilateral wound debridements, left transmetatarsal amputation, debridement of nonviable soft tissue and bone. Fot the condition of bilateral diabetic foot ulcers, gangrene, cellulits, and suspected osteomyelitis. Bilateral diabetic foot ulcer dressings removed, patient has necrotic tissue on the lateral side of her great left toe with erythema extending towards the midfoot. The right foot has an amputation noted to hallux , 2-4 toes have necrotic tissue noted, and cellulitis. Wounds dressed with soaked betadine, 4x4 and kirlex. Bilateral surgical sites ordonez. Patient remains NPO for surgery this afternoon. <Jennifer Shah - 04/03/21 09:36> PN: Obj Ex Vital signs: Temp Pulse Resp BP Pulse Ox 99.8 F H 85 16 159/77 H 93 L 04/03/21 08:00 04/03/21 08:00 04/03/21 08:00 04/03/21 08:00 04/03/21 08:00 <Brandi Garces - 04/03/21 09:53> Temp Pulse Resp BP Pulse Ox 99.8 F H 92 H 18 173/74 H 90 L 04/03/21 04:00 04/03/21 04:00 04/03/21 04:00 04/03/21 04:00 04/03/21 04:00 <Jennifer Shah - 04/03/21 09:08> - Constitutional no acute distress <Jennifer Shah 04/03/21 09:36> - Routine HEENT Exam Head: Present: normocephalic <Jennifer Shah 04/03/21 09:36> Eye: Present: EOMI, PERRL <[facility] 04/03/21 09:36> ENT: Present: mucous membranes moist <[facility] 04/03/21 09:36> - Routine Neck Exam Present: supple. Absent: lymphadenopathy <[facility] 04/03/21 09:36> - Routine Respiratory Exam Absent: accessory muscle use, respiratory distress <[facility] 04/03/21 09:36> - Routine Cardiovascular Exam Present: RRR <[facility] 04/03/21 09:36> - Routine Abdominal Exam Present: soft <[facility] 04/03/21 09:36> - Routine Extremities Exam Present: edema, pulses intact, normal capillary refill, amputation (Right hallux) <[facility] 04/03/21 09:36> - Detailed Lower Extremity Exam Foot/Toes: Right amputation (hallux), Bilateral deformity, Bilateral erythema, Bilateral swelling, Bilateral tenderness, Bilateral wound <[facility] 04/03/21 09:36> Top foot image: 1 - Prior right hallux amputation with open wound noted. Deformity noted to right digits 2-5. Skin peeling, dry cracked to toes. Hammertoes to 2-3rd,5th toe is dorsiflexed and overlaying 4th toe. Left hallux-3rd toe has distal gangrene with localized edema and erythema noted to midfoot. Decreased pedal pulses. No pedal hair growth. Decreased light touch sensation. <[facility] 04/03/21 09:36> - Routine Skin Exam Present: erythema (left toes extending to midfoot, amp site right hallux open wound), gangrene (left 1-3rd toes, left hallux extending to 1st MPJ) <[facility] 04/03/21 09:36> - Routine Neurological Exam Present: oriented X3 <[facility] 04/03/21 09:36> Progress Note: A&P (1) Gangrene of left foot Status: Acute (2) Diabetic microangiopathy Status: Acute (3) Cellulitis of left foot Status: Acute (4) Diabetic ulcer of right foot Status: Acute (5) Osteomyelitis Status: Acute (6) Type 2 diabetes mellitus Status: Chronic (7) Hypertension Status: Chronic (8) Hyperlipidemia Status: Chronic (9) Noncompliance with medication regimen Status: Chronic (10) Tobacco abuse Status: Acute (11) PAD (peripheral artery disease) Status: Acute <Brandi Garces -
--- NOTE | 2021-04-03 09:28 | HMH.ACPN2 ---
<Debbie Tang - Last Filed: 04/03/21 14:04> Internal Medicine - PN: Subj *Date: 04/03/21 *Time: 14:04 Interval history: Feet do not hurt. She has pain in her lower back from the procedure. She is hungry this morning but is n.p.o. for surgery. She did fine yesterday. She denies chest pain and shortness of breath. White blood cell count is 14,100 this a.m. with a hemoglobin of 12.5 hematocrit of 38.5. Blood chemistries show sodium of 133 and potassium of 3.4. BUN is 25 and creatinine is 1.2. Exam Vital signs and Labs for Last 24 Hours: Temp Pulse Resp BP Pulse Ox 99.8 F H 85 16 159/77 H 93 L 04/03/21 08:00 04/03/21 08:00 04/03/21 08:00 04/03/21 08:00 04/03/21 08:00 Laboratory Results - last 24 hr 04/02/21 16:22: POC Glucose 151 H 04/03/21 05:38: WBC 14.1 H, RBC 4.43, Hgb 12.5, Hct 38.5, MCV 86.8, MCH 28.3, MCHC 32.5, RDW 13.3, Plt Count 342, MPV 7.9, Neut % (Auto) 87.2 H, Lymph % (Auto) 6.5 L, [place] % (Auto) 5.8, Eos % (Auto) 0.1, Baso % (Auto) 0.4, Neut # (Auto) 12.3 H, Lymph # (Auto) 0.9, [place] # (Auto) 0.8, Eos # (Auto) 0.0, Baso # (Auto) 0.1, Total Counted 100, Neutrophils % (Manual) 87 H, Lymphocytes % (Manual) 7 L, Monocytes % (Manual) 6, Platelet Estimate Normal, RBC Morphology Normal 04/03/21 05:38: Sodium 133 L, Potassium 3.4 L D, Chloride 105, Carbon Dioxide 26, Anion Gap 5.4, BUN 25 H D, Creatinine 1.20 H D, Estimated Creat Clear 58, Estimated GFR 46 L, Est GFR ( Amer) 56 L D, Glucose 106 H, Calcium 8.2 L, C-Reactive Protein 105.8 H 04/03/21 05:38: ESR 105 H I & O for Last 24 hours: Intake & Output 03/31/21 04/01/21 04/02/21 04/03/21 11:59 11:59 11:59 11:59 Intake Total 1930 / 1930 600 / 600 240 / 240 Output Total 1500 / 1500 700 / 700 Balance 430 / 430 -100 / -100 240 / 240 Weight 160 lb 158 lb 11.725 oz 152 lb 157 lb Microbiology Reports for the Last 24 Hours: Microbiology 03/31/21 13:14 Blood Blood Culture - Preliminary NO GROWTH AFTER 48 HOURS 03/31/21 13:14 Blood Blood Culture - Preliminary NO GROWTH AFTER 48 HOURS - Constitutional no acute distress - *Routine Respiratory Exam Present: rhonchi (Scattered throughout) - *Routine Cardiovascular Exam Present: RRR - *Routine Abdominal Exam Present: soft, normoactive bowel sounds. Absent: tenderness - *Routine Extremities Exam Absent: edema Comments: Dressings on bilateral feet - *Routine Neurological Exam Present: alert, oriented X3 Assessment and Plan (1) Gangrene of left foot Status: Acute Category: Medical Code(s): I96 - Gangrene, not elsewhere classified (2) Diabetic microangiopathy Status: Acute Category: Medical Code(s): E11.51 - Type 2 diabetes mellitus with diabetic peripheral angiopathy without gangrene (3) Cellulitis of left foot Status: Acute Category: Medical Code(s): L03.116 - Cellulitis of left lower limb (4) Diabetic ulcer of right foot Status: Acute Category: Medical Code(s): E11.621 - Type 2 diabetes mellitus with foot ulcer; L97.519 - Non-pressure chronic ulcer of other part of right foot with unspecified severity (5) Osteomyelitis Status: Acute Qualifiers: Osteomyelitis type: unspecified type Osteomyelitis location: foot Laterality: left Qualified Code(s): M86.9 - Osteomyelitis, unspecified Category: Medical Code(s): M86.9 - Osteomyelitis, unspecified (6) Type 2 diabetes mellitus Status: Chronic Category: Medical Code(s): E11.9 - Type 2 diabetes mellitus without complications (7) Hypertension Status: Chronic Category: Medical Code(s): I10 - Essential (primary) hypertension (8) Hyperlipidemia Status: Chronic Category: Medical Code(s): E78.5 - Hyperlipidemia, unspecified (9) Noncompliance with medication regimen Status: Chronic Category: Medical Code(s): Z91.14 - Patient's other noncompliance with medication regimen (10) Tobacco abu
--- NOTE | 2021-04-03 10:21 | HMH.PNCARD ---
Subjective Date: 04/03/21 Time: 10:15 Principal diagnosis: PAD/left foot gangrene/Osteomyelitis Interval history: This is a 55-year-old white female who was admitted to the hospital with a gangrenous lower extremity. She underwent runoff of the left lower extremity on Saturday which showed: ANGIOGRAPHIC RESULTS Left common internal and external iliac arteries are widely patent Left common femoral artery is widely patent with mild eccentric 10% calcified stenosis Left profunda femoris artery is widely patent Left superficial femoral artery is widely patent with diffuse nonflow limiting 40% stenoses throughout. At Karl's canal there is an additional 40% stenosis as the artery transitions into the popliteal artery. Left popliteal artery is widely patent with diffuse 30% stenoses Left PT trunk has 30% stenosis Left anterior tibialis artery is widely patent with nonflow limiting mild atherosclerotic plaque. The vessel terminates into the dorsalis pedis artery. The midportion of the dorsalis pedis artery has a mid vessel subtotal occlusion. Distally there is good phalangeal perfusion of the first four great toes Left peroneal artery is widely patent with a mid vessel 80% stenosis which is nonflow limiting. There is excellent antegrade flow into the proximal portion of the left foot Left posterior tibialis artery is proximally subtotally occluded and then completely occluded in its mid segment but then reconstitutes distally from collaterals from the AT and peroneal artery. It then enters into the left posterior tibial artery and enters the foot IMPRESSION Peripheral artery disease as described above Patent 2-1/2 vessel runoff into the left foot Patient primarily has a small vessel microvasculopathy which is not amenable to either surgical nor percutaneous revascularization at this time due to the lack of macrovascular focal disease PLAN 1. From a percutaneous or surgical standpoint there is nothing which can be invasively performed which will improve patient's q[place]angin circulation. Based on the angiogram it appears as though patient would heal a transmetatarsal amputation without difficulty 2. Recommend LDL less than fifty-five 3. Aggressive control of risk factors especially aggressive perioperative glycemic control 4. Following amputation patient should continue on Xarelto 2.5 mg p.o. twice daily plus aspirin 81 mg daily 5. Avoidance of tobacco products 6. Physical therapy This morning she denies any chest pain or pressure. She denies any shortness of breath or edema. She denies any fever, chills, nausea, vomiting, diarrhea, PND or orthopnea. She states that she is only hungry this morning. The patient is scheduled to undergo right foot incision and drainage, bilateral wound debridements and left metatarsal amputation with debridement of nonviable soft tissue and bone. Exam Vital signs and Labs for Last 24 Hours: Temp Pulse Resp BP Pulse Ox 99.8 F H 85 16 159/77 H 93 L 04/03/21 08:00 04/03/21 08:00 04/03/21 08:00 04/03/21 08:00 04/03/21 08:00 Laboratory Results - last 24 hr 04/02/21 16:22: POC Glucose 151 H 04/03/21 05:38: WBC 14.1 H, RBC 4.43, Hgb 12.5, Hct 38.5, MCV 86.8, MCH 28.3, MCHC 32.5, RDW 13.3, Plt Count 342, MPV 7.9, Neut % (Auto) 87.2 H, Lymph % (Auto) 6.5 L, Major % (Auto) 5.8, Eos % (Auto) 0.1, Baso % (Auto) 0.4, Neut # (Auto) 12.3 H, Lymph # (Auto) 0.9, Major # (Auto) 0.8, Eos # (Auto) 0.0, Baso # (Auto) 0.1, Total Counted 100, Neutrophils % (Manual) 87 H, Lymphocytes % (Manual) 7 L, Monocytes % (Manual) 6, Platelet Estimate Normal, RBC Morphology Normal 04/03/21 05:38: Sodium 133 L, Potassium 3.4 L D, Chloride 105, Carbon Dioxide 26, Anion Gap 5.4, BUN 25 H D, Creatinine 1.20 H D, Estimated Creat Clear 58, Estimated GFR 46 L, Est GFR ( Amer) 56 L D, Glucose 106 H, Calcium 8.2 L, C-Reactive Protein 105.8 H 04/03/21 05:38: ESR 105 H I & O for Last 24 hours: Intake & Output 03/21
--- NOTE | 2021-04-03 10:52 | HMH.ACPN ---
Internal Medicine - PN: Subj *Date: 04/03/21 *Time: 10:52 Exam Vital signs and Labs for Last 24 Hours: Temp Pulse Resp BP Pulse Ox 99.8 F H 85 16 159/77 H 93 L 04/03/21 08:00 04/03/21 08:00 04/03/21 08:00 04/03/21 08:00 04/03/21 08:00 Laboratory Results - last 24 hr 04/02/21 16:22: POC Glucose 151 H 04/03/21 05:38: WBC 14.1 H, RBC 4.43, Hgb 12.5, Hct 38.5, MCV 86.8, MCH 28.3, MCHC 32.5, RDW 13.3, Plt Count 342, MPV 7.9, Neut % (Auto) 87.2 H, Lymph % (Auto) 6.5 L, [place] % (Auto) 5.8, Eos % (Auto) 0.1, Baso % (Auto) 0.4, Neut # (Auto) 12.3 H, Lymph # (Auto) 0.9, [place] # (Auto) 0.8, Eos # (Auto) 0.0, Baso # (Auto) 0.1, Total Counted 100, Neutrophils % (Manual) 87 H, Lymphocytes % (Manual) 7 L, Monocytes % (Manual) 6, Platelet Estimate Normal, RBC Morphology Normal 04/03/21 05:38: Sodium 133 L, Potassium 3.4 L D, Chloride 105, Carbon Dioxide 26, Anion Gap 5.4, BUN 25 H D, Creatinine 1.20 H D, Estimated Creat Clear 58, Estimated GFR 46 L, Est GFR ( Amer) 56 L D, Glucose 106 H, Calcium 8.2 L, C-Reactive Protein 105.8 H 04/03/21 05:38: ESR 105 H I & O for Last 24 hours: Intake & Output 03/31/21 04/01/21 04/02/21 04/03/21 23:59 23:59 23:59 23:59 Intake Total 1360 / 1360 930 / 930 480 / 480 Output Total 300 / 300 1900 / 1900 Balance 1060 / 1060 -970 / -970 480 / 480 Weight 72 kg 72 kg 68.946 kg 71.214 kg Microbiology Reports for the Last 24 Hours: Microbiology 03/31/21 13:14 Blood Blood Culture - Preliminary NO GROWTH AFTER 48 HOURS 03/31/21 13:14 Blood Blood Culture - Preliminary NO GROWTH AFTER 48 HOURS Assessment and Plan (1) PAD (peripheral artery disease) Start date: 04/03/21 Start time: 07:30 Status: Acute Category: Medical Code(s): I73.9 - Peripheral vascular disease, unspecified (2) Gangrene of left foot Start date: 04/03/21 Start time: 07:30 Status: Acute Category: Medical Code(s): I96 - Gangrene, not elsewhere classified (3) Diabetic microangiopathy Start date: 04/03/21 Start time: 07:30 Status: Acute Category: Medical Code(s): E11.51 - Type 2 diabetes mellitus with diabetic peripheral angiopathy without gangrene (4) Cellulitis of left foot Start date: 04/03/21 Start time: 07:30 Status: Acute Category: Medical Code(s): L03.116 - Cellulitis of left lower limb (5) Diabetic ulcer of right foot Start date: 04/03/21 Start time: 07:30 Status: Acute Category: Medical Code(s): E11.621 - Type 2 diabetes mellitus with foot ulcer; L97.519 - Non-pressure chronic ulcer of other part of right foot with unspecified severity (6) Osteomyelitis Start date: 04/03/21 Start time: 07:30 Status: Acute Qualifiers: Osteomyelitis type: unspecified type Osteomyelitis location: foot Laterality: left Qualified Code(s): M86.9 - Osteomyelitis, unspecified Category: Medical Code(s): M86.9 - Osteomyelitis, unspecified (7) Type 2 diabetes mellitus Start date: 04/03/21 Start time: 07:30 Status: Chronic Category: Medical Code(s): E11.9 - Type 2 diabetes mellitus without complications (8) Hypertension Status: Chronic Category: Medical Code(s): I10 - Essential (primary) hypertension (9) Hyperlipidemia Status: Chronic Category: Medical Code(s): E78.5 - Hyperlipidemia, unspecified (10) Noncompliance with medication regimen Start date: 04/03/21 Start time: 07:30 Status: Chronic Category: Medical Code(s): Z91.14 - Patient's other noncompliance with medication regimen (11) Tobacco abuse Start date: 04/03/21 Start time: 07:30 Status: Acute Category: Medical Code(s): Z72.0 - Tobacco use The patient's infection will respond to the chosen ABx?: Yes (EMPIRIC THERAPY FOR CELLULITIS ) Is the patient receiving the right drug, dose, and route?: Yes Could a more targeted ABx be ordered?: No (NO CULTURES OBTAINED)
--- NOTE | 2021-04-03 11:18 | HMH.CNCARD ---
History of Present Illness Consult date: 03/31/21 Requesting physician: Gio Driver Consult reason: pre-op evaluation Chief complaint: left foot wound History of present illness: This is a 55-year-old female with a history of poorly controlled type 2 diabetes presenting for chief complaint of left foot wound. She states that for the past week, she has been having increasing skin changes on her left toe. She states it started off as a blister, which then popped and has now turned black with a area of worsening erythema. Patient also had an amputation of great toe on her right foot and has an open wound there but does not seem concerned. Patient states she is not compliant with her diabetes medications. Denies chest pain, dyspnea, edema, N/V/D.. Denies fever, chills, PND or orthopnea. She denies unilateral leg swelling. She believes she had a fever at home but did not measure her temperature. palpable DP pulses bilaterally. Patient has necrotic tissue on the lateral side of her great left toe with erythema extending towards the midfoot. Cardiology has been consulted for evaluation of PAD prior to proceeding with surgical intervention of the LLE. [facility] History I have reviewed the patient's past medical history: Yes Medical History: Reports:: Diabetes Mellitus Type 2, Hyperlipidemia, Hypertension *Have you ever received a pneumonia vaccine?: No *Have you received a flu vaccine this season?: No Other Surgeries: Yes: Tubal Ligation - *Social History Smoking Status: Current every day smoker Tobacco Type: cigarettes # Packs/Day (cigarettes): 1 Alcohol Intake: never *Occupational Status:: unemployed Household Members: family *Travel in the last 8 weeks: None Family Hx:: Diabetes Meds Home Medications Medication Instructions Recorded Confirmed Type Metformin HCl [Metformin HCl ER] 1,000 mg PO BID 04/01/21 04/01/21 History Allergies Allergy/AdvReac Type Severity Reaction Status Date / Time vancomycin Allergy Verified 04/03/21 06:08 Exam Vital signs and Labs for Last 24 Hours: Temp Pulse Resp BP Pulse Ox 99.8 F H 85 16 159/77 H 93 L 04/03/21 08:00 04/03/21 08:00 04/03/21 08:00 04/03/21 08:00 04/03/21 08:00 Laboratory Results - last 24 hr 04/02/21 16:22: POC Glucose 151 H 04/03/21 05:38: WBC 14.1 H, RBC 4.43, Hgb 12.5, Hct 38.5, MCV 86.8, MCH 28.3, MCHC 32.5, RDW 13.3, Plt Count 342, MPV 7.9, Neut % (Auto) 87.2 H, Lymph % (Auto) 6.5 L, [place] % (Auto) 5.8, Eos % (Auto) 0.1, Baso % (Auto) 0.4, Neut # (Auto) 12.3 H, Lymph # (Auto) 0.9, [place] # (Auto) 0.8, Eos # (Auto) 0.0, Baso # (Auto) 0.1, Total Counted 100, Neutrophils % (Manual) 87 H, Lymphocytes % (Manual) 7 L, Monocytes % (Manual) 6, Platelet Estimate Normal, RBC Morphology Normal 04/03/21 05:38: Sodium 133 L, Potassium 3.4 L D, Chloride 105, Carbon Dioxide 26, Anion Gap 5.4, BUN 25 H D, Creatinine 1.20 H D, Estimated Creat Clear 58, Estimated GFR 46 L, Est GFR ( Amer) 56 L D, Glucose 106 H, Calcium 8.2 L, C-Reactive Protein 105.8 H 04/03/21 05:38: ESR 105 H I & O for Last 24 hours: Intake & Output 03/31/21 04/01/21 04/02/21 04/03/21 11:59 11:59 11:59 11:59 Intake Total 1930 / 1930 600 / 600 240 / 240 Output Total 1500 / 1500 700 / 700 Balance 430 / 430 -100 / -100 240 / 240 Weight 160 lb 158 lb 11.725 oz 152 lb 157 lb Microbiology Reports for the Last 24 Hours: Microbiology 03/31/21 13:14 Blood Blood Culture - Preliminary NO GROWTH AFTER 48 HOURS 03/31/21 13:14 Blood Blood Culture - Preliminary NO GROWTH AFTER 48 HOURS - Constitutional no acute distress, average body habitus - *Routine HEENT Exam Head: Present: normocephalic, atraumatic Eye: Present: EOMI, PERRL ENT: Present: mucous membranes moist - *Routine Neck Exam Present: supple, full ROM, normal carotid upstroke. Absent: JVD, carotid bruit, lymphadenopathy - *Routine Respiratory Exam Pre
--- NOTE | 2021-04-03 12:10 | HMH.ANESCL ---
[facility] Anesthesia Checklist - Patient Identification Patient Identification: Arm Band - Structural Data Admitted From: Inpatient Planned Operative Procedure/s: Amputation L hallux Consent for Planned Operative Procedure(s) Verified: Yes - NPO Status Verified Time NPO: 00:00 - Airway Assessment C-Spine Mobility Assessed: Yes TMJ Mobility Assessed: Yes Dentition: Dentures-good fit - Neurological Assessment Level of Consciousness: Awake Hx Seizures: No Numbness or tingling in extremities: Yes - Anesthesia Plan Anesthesia Risk discussed: Yes Anesthesia Plan: Verified ASA Class: III Anesthesia Type: Local & MAC [facility] History I have reviewed the patient's past medical history: Yes Medical History: Reports:: Diabetes Mellitus Type 2, Hyperlipidemia, Hypertension *Have you ever received a pneumonia vaccine?: No *Have you received a flu vaccine this season?: No Anesthesia experience/problems:: Violent wakeup Other Surgeries: Yes: Tubal Ligation - *Social History Smoking Status: Current every day smoker Tobacco Type: cigarettes # Packs/Day (cigarettes): 1 Alcohol Intake: never Substance Use Type: denies use *Occupational Status:: unemployed Household Members: family *Travel in the last 8 weeks: None Family Hx:: Diabetes
--- NOTE | 2021-04-03 15:12 | HMH.ANESI ---
[facility] Anesthesia Record Part I Intake, IV Amount: 1,000 Estimated blood loss (mL): 10 Urine output (mL): 0 Blood Pressure: 122/60 SaO2: 93 Pulse Rate: 92 Respiratory Rate: 16 Temperature: 99.1 F Patient is:: Drowsy, Stable Stable to PACU at:: 15:10
--- NOTE | 2021-04-03 15:16 | XR_ITS ---
FINAL REPORT CLINICAL HISTORY: Post op TMA COMPARISON: March 31, 2021 FINDINGS: LEFT FOOT Three views were obtained. There has been transmetatarsal amputation. There is degenerative change of the midfoot. Calcaneal spurs are present. There is a presumed drain at the stump. IMPRESSION: Postoperative changes as above. Reviewed, Interpreted and Dictated by Brien Jacobs III, MD Transcribed by Tristan Tee Authenticated by Brien Jacobs III, MD on 04/03/2021 04:59:44 PM [facility]
--- NOTE | 2021-04-03 15:16 | HMH.OPNOTE ---
Date of procedure: 04/03/21 Pre-op Diagnosis:: 1. Right diabetic foot ulcer 2. Left diabetic foot ulcer 3. Left foot gangrene 4. Right 2nd toenail avulsion 5. Left sub 4th metatarsal callus 6. PAD Post-op Diagnosis:: Same Procedure performed:: 1. Right wound debridement x2 2. Right 2nd toenail avulsion 3. Left foot incision and drainage 4. Left transmetatarsal amputation 5. Left callus debridement 6. Application of JOSE JUAN drain Surgeon:: Brandi Garces DPM HOT POND OPERATOR:: Damian Choi Anesthesia: GETA Estimated blood loss (mL): 25 Clinical Note:: We discussed conservative versus surgical treatment options. Conservative treatment options include local wound care, oral and IV antibiotics, change in shoe wear, taping/padding, and off-loading. We discussed surgical intervention for amputation of the left distal foot/TMA anf b/l foot wound debridements. Patient understands that there is a chance that the toes can migrate to fill the gap or the foot may change shape after surgery. Patient also understands that they could have wound healing complications including delayed healing and infection. We discussed that if the wound does not heal, it is possible that they may need a more proximal amputation and could result in further loss of digits, loss of partial foot or loss of leg. We discussed the risks and benefits in great detail. Other surgical risks include: prolonged pain and swelling, further infection requiring oral or IV antibiotics, delay in healing of soft tissue or bone, nerve or blood vessel damage, CRPS/RSD, DVT, anesthesia complications, and even . All questions answered. Patient verbalized understanding. Consent obtained. Dr Driver granted medical clearance. Operative findings:: Ulcer noted to the distal dorsal aspect of the right previous hallux amputation site. Wound was sharply excisionally divided with 15 blade forceps and curette through skin into subcutaneous tissue. Post debridement wound was 100% granular and measured 5 x 1.8 x 0.1 cm. No purulence malodor or drainage noted. Right second toe was partially avulsed it was removed in total without complication. Wound noted distal second toe extending medial to the DIPJ. It was sharply sectionally debrided with 15 blade forceps and curettes through skin into/involving subcutaneous tissue. Post debridement wound was 100% granular and measured 2 x 1.5 x 0.1 cm. No deep opening under the nail. Left foot had gangrenous changes on the hallux, second, third and fifth toes. Callus noted to the subfourth metatarsal region. Callus debrided without complication. Wound culture taken from the hallux, yellow purulent drainage. The distal phalanx bone was soft and crumbly with malodor noted. Transmetatarsal amputation. First metatarsal head had some cortical erosion. Second metatarsal head had some deformity likely consistent with the prior fracture and Charcot changes. No evidence of purulence extending up the tendons proximally. Operative note:: On this date and time patient was deemed an appropriate surgical candidate. With informed consent signed, the patient was taken to the operating theater. The patient was positioned supine. General anesthesia was induced. Left mid-calf tourniquet placed but not inflated. IV vancomycin 1 g given (patient confirmed with myself and OR nurse no allergy to Vanco). Right hallux wound debridement: The left lower extremity was prepped and draped in normal sterile fashion. Attention was directed to the dorsal distal foot where prior amputation site was noted. Wound noted over the hallux. Utilizing 15 blade forceps and curette the wound was sharply excisionally debrided through skin into/including subcutaneous tissue. Post debridement there was no purulence malodor or drainage. See operative findings for measurements. Right second toenail avulsion, total nail avulsion procedure, wound debridement: The second toe nail was partially avulsed. Utilizing a [employer] and hemost
--- NOTE | 2021-04-03 15:25 | PC.NURSE ---
after arrival to floor notified md of patient status. called and reported critical abg results to md office at [id number]
[2021-04-03 16:26] LABS: POC Glucose,Bedside 105 (70-110)
--- NOTE | 2021-04-03 18:29 | PC.NURSE ---
AOX4, ABLE TO MAKE NEEDS KNOWN TO STAFF. 1 LARGE SOFT BM THIS SHIFT. SHE HAS TOLERATED RA SINCE RETURNING FROM SURGERY. TOLERATED PO INTAKE WELL. SHE HAS DENIED PAIN AND N/V/D.
[2021-04-03 21:56] LABS: POC Glucose,Bedside 151 (70-110)
[2021-04-03 21:56] LABS: POC Glucose,Bedside 182 (70-110)
[2021-04-03 21:56] LABS: POC Glucose,Bedside 243 (70-110)
[2021-04-03 21:56] LABS: POC Glucose,Bedside 216 (70-110)
[2021-04-03 21:56] LABS: POC Glucose,Bedside 105 (70-110)
[2021-04-04] VITALS (7 sets, daily range): BP systolic 118–159; BP diastolic 59–88; PULSE 73–95; RESP 16–18; TEMP 36.7–37.9; O2SAT 93–99; BMI 24.6
[2021-04-04 06:16] LABS: POC Glucose,Bedside 186 (70-110)
[2021-04-04 06:40] LABS: Adenovirus F 40/41, stool Not Detected (NotDetected); Astrovirus Not Detected (NotDetected); Campylobacter Not Detected (NotDetected); Clostridium Difficile A/B, PCR Not Detected (NotDetected); Cryptosporidium Not Detected (NotDetected); Cyclospora Cayetanesis Not Detected (NotDetected); Entamoeba histolytica Not Detected (NotDetected); Enteroaggregative E coli Not Detected (NotDetected); Enteropathogenic E coli Not Detected (NotDetected); Enterotoxigenic E coli Not Detected (NotDetected); Giardia lamblia Not Detected (NotDetected); Norovirus Not Detected (NotDetected); Plesimonas Shigalloides, PCR Not Detected (NotDetected); Rotavirus A Not Detected (NotDetected); Salmonella, PCR Not Detected (NotDetected); Sapovirus Not Detected (NotDetected); Shiga-like toxin E coli Not Detected (NotDetected); Shigella Enterovasive E coli Not Detected (NotDetected); Vibrio Cholerae Not Detected (NotDetected); Vibrio, PCR Not Detected (NotDetected); Yersinia Entercolitica, PCR Not Detected (NotDetected)
[2021-04-04 06:47] LABS: Basophils % 0.3 % (0.1-2.0); Eosinophils % 0.5 % (0.1-12.0); Hematocrit 31.7 % (37.0-47.0); Hemoglobin 10.4 g/dL (12.2-16.2); Lymphocytes % 10.8 % (10-50); Mean Corpuscular HGB Conc 32.8 g/dL (31.8-35.4); Mean Corpuscular Volume 88.6 fl (81-99); Mean Platelet Volume 8.1 fl (7.4-10.4); Monocytes # 0.4 K/mm3 (0.1-1.0); Monocytes % 4.3 % (1.7-9.3); Neutrophils # 7.6 K/mm3 (1.8-7.8); Neutrophils % 84.1 % (37.0-80.0); Platelet Count 290 K/mm3 (142-424); Red Blood Count 3.58 M/mm3 (4.20-5.40); Red Cell Distribution Width 13.4 % (11.5-17.5)
--- NOTE | 2021-04-04 06:57 | PC.NURSE ---
Pt has been pleasant and cooperative t/o shift. Pt has had multiple loose BMs t/o shift. Stool sample has been collected. Pt c/o pain in feet 1x rating 5/10. Toradol was given per APR with favorable results. Dressing in place to bilat feet. JOSE JUAN drain in place to left foot, 50 ml have been drained t/o shift. Call baxter within reach.
[2021-04-04 07:13] LABS: Alanine Aminotransferase 26 U/L (12-78); Albumin Level 2.9 g/dl (3.5-5.0); Alkaline Phosphatase 147 U/L (38-126); Anion Gap 5.5 mEq/L (5-15); Aspartate Amino Transferase 69 U/L (14-36); Bilirubin,Direct 0.4 mg/dl (0.0-0.4); Bilirubin,Total 0.4 mg/dl (0.2-1.3); Blood Urea Nitrogen 22 mg/dl (7-17); Calcium 7.5 mg/dl (8.4-10.2); Carbon Dioxide 26 mmol/L (22.0-30.0); Chloride 106 mmol/L (98-107); Chol/HDL Ratio 5.3 (1-3.5); Cholesterol 138 mg/dl (140-200); Creatinine Clearance Estimated 50 mL/min (50-200); Direct LDL Cholesterol 73.72 mg/dL (100-129); Estimated Glomerular Filt Rate 39 ml/min (>60); GFR (African American) 47 ML/MIN (>60); Glucose 166 mg/dl (74-100); HDL Cholesterol 26 mg/dl (40-60); Potassium 3.5 mmoL/L (3.5-5.1); Sodium 134 mmol/L (136-145); Total Protein,Serum 5.9 g/dl (6.3-8.2); Triglycerides 143 mg/dl (30-150); VLDL Cholesterol 29 mg/dL (0-40)
--- NOTE | 2021-04-04 08:38 | HMH.ACPN2 ---
<Debbie Tang - Last Filed: 04/04/21 08:38> Internal Medicine - PN: Subj *Date: 04/04/21 *Time: 08:38 Interval history: Patient's biggest complaint this morning is diarrhea. She thinks she had x5 stools during the night. She denies abdominal discomfort. She is hungry and would like to eat. Dressing being changed by podiatry this morning. Wounds on right and left feet appear clean. Drainage from wound on the left foot. Patient denies pain. Laboratory data shows a normal white blood cell count this a.m. at 9000. Renal function with a BUN of 22 and creatinine of 1.4. Wound culture results pending Exam Vital signs and Labs for Last 24 Hours: Temp Pulse Resp BP Pulse Ox 98.0 F 75 16 131/63 99 04/04/21 07:50 04/04/21 07:50 04/04/21 07:50 04/04/21 07:50 04/04/21 07:50 Laboratory Results - last 24 hr 03/31/21 17:03: POC Glucose 151 H 04/01/21 21:24: POC Glucose 216 H 04/02/21 20:36: POC Glucose 182 H 04/03/21 06:52: POC Glucose 105 04/03/21 16:18: POC Glucose 105 04/03/21 21:10: POC Glucose 243 H 04/04/21 05:44: POC Glucose 186 H 04/04/21 06:05: Sodium 134 L, Potassium 3.5, Chloride 106, Carbon Dioxide 26, Anion Gap 5.5, BUN 22 H, Creatinine 1.40 H, Estimated Creat Clear 50, Estimated GFR 39 L, Est GFR ( Amer) 47 L, Glucose 166 H, Calcium 7.5 L, Total Bilirubin 0.4, Direct Bilirubin 0.4, AST 69 H, ALT 26, Alkaline Phosphatase 147 H, Total Protein 5.9 L D, Albumin 2.9 L, Globulin 3.0, Albumin/Globulin Ratio 1.0 L, Triglycerides 143, Cholesterol 138 L, LDL Cholesterol Direct 73.72 L, VLDL Cholesterol 29, HDL Cholesterol 26 L, Cholesterol/HDL Ratio 5.3 H 04/04/21 06:05: WBC 9.0 D, RBC 3.58 L, Hgb 10.4 L, Hct 31.7 L, MCV 88.6, MCH 29.0, MCHC 32.8, RDW 13.4, Plt Count 290, MPV 8.1, Neut % (Auto) 84.1 H, Lymph % (Auto) 10.8, [place] % (Auto) 4.3, Eos % (Auto) 0.5, Baso % (Auto) 0.3, Neut # (Auto) 7.6, Lymph # (Auto) 1.0, [place] # (Auto) 0.4, Eos # (Auto) 0.0, Baso # (Auto) 0.0 I & O for Last 24 hours: Intake & Output 04/01/21 04/02/21 04/03/21 04/04/21 11:59 11:59 11:59 11:59 Intake Total 1930 / 1930 600 / 600 240 / 240 1000 / 1000 Output Total 1500 / 1500 700 / 700 950 / 950 Balance 430 / 430 -100 / -100 240 / 240 50 / 50 Weight 158 lb 11.725 oz 152 lb 157 lb 156 lb 15.506 oz Microbiology Reports for the Last 24 Hours: Microbiology 04/03/21 14:10 Foot,Left Gram Stain - Final Assessment and Plan (1) Gangrene of left foot Start date: 04/03/21 Start time: 07:30 Status: Acute Category: Medical Code(s): I96 - Gangrene, not elsewhere classified (2) Diabetic microangiopathy Start date: 04/03/21 Start time: 07:30 Status: Acute Category: Medical Code(s): E11.51 - Type 2 diabetes mellitus with diabetic peripheral angiopathy without gangrene (3) Cellulitis of left foot Start date: 04/03/21 Start time: 07:30 Status: Acute Category: Medical Code(s): L03.116 - Cellulitis of left lower limb (4) Diabetic ulcer of right foot Start date: 04/03/21 Start time: 07:30 Status: Acute Category: Medical Code(s): E11.621 - Type 2 diabetes mellitus with foot ulcer; L97.519 - Non-pressure chronic ulcer of other part of right foot with unspecified severity (5) Osteomyelitis Start date: 04/03/21 Start time: 07:30 Status: Acute Qualifiers: Osteomyelitis type: unspecified type Osteomyelitis location: foot Laterality: left Qualified Code(s): M86.9 - Osteomyelitis, unspecified Category: Medical Code(s): M86.9 - Osteomyelitis, unspecified (6) Type 2 diabetes mellitus Start date: 04/03/21 Start time: 07:30 Status: Chronic Category: Medical Code(s): E11.9 - Type 2 diabetes mellitus without complications (7) Hypertension Status: Chronic Category: Medical Code(s): I10 - Essential (primary) hypertension (8) Hyperlipidemia Status: Chronic Category: Medical Code(s): E78.5 - Hyperlipidemia, unspecified (9) Noncompliance
--- NOTE | 2021-04-04 08:44 | HMH.ORTHPN ---
Subjective Date: 04/04/21 <Jennifer Shah 04/04/21 09:31> Time: 08:00 <Jennifer Shah 04/04/21 09:31> Principal diagnosis: PAD/left foot gangrene/Osteomyelitis <Jennifer Shah 04/04/21 09:31> Interval history: Patient lying comfortably in bed. Alert and oriented x 3. No acute distress noted. Status post : Right wound debridement x2, Right 2nd toenail avulsion, Left foot incision and drainage, Left transmetatarsal amputation, Left callus debridement, Application of ELLIS drain. Bilateral feet wounds post op dressings removed, right hallux and second toe wound sites intact, no drainage noted, no needs for debridement. Left transmetatarsal amputation incision site with kay in place. No drainage noted. See operative note and findings for wounds measurements. <Jennifer Shah 04/04/21 10:19> PN: Obj Ex Vital signs: Temp Pulse Resp BP Pulse Ox 98.0 F 75 16 131/63 99 04/04/21 07:50 04/04/21 07:50 04/04/21 07:50 04/04/21 07:50 04/04/21 07:50 <MiliBrandi - 04/04/21 13:12> Temp Pulse Resp BP Pulse Ox 98.0 F 75 16 131/63 99 04/04/21 07:50 04/04/21 07:50 04/04/21 07:50 04/04/21 07:50 04/04/21 07:50 <Jennifer Shah 04/04/21 09:31> - Constitutional no acute distress <Jennifer Shah 04/04/21 09:31> - Routine HEENT Exam Head: Present: normocephalic <Jennifer Shah 04/04/21 09:31> Eye: Present: EOMI, PERRL <Jennifer Shah 04/04/21 09:31> ENT: Present: mucous membranes moist <Jennifer Shah 04/04/21 09:31> - Routine Neck Exam Present: supple, trachea midline <Jennifer Shah 04/04/21 09:31> - Routine Respiratory Exam Absent: accessory muscle use, respiratory distress <Jennifer Shah 04/04/21 09:31> - Routine Cardiovascular Exam Present: RRR <Sari Shahher 04/04/21 09:31> - Routine Abdominal Exam Present: soft <Sari Shahher 04/04/21 09:31> - Routine Extremities Exam Present: edema, pulses intact, normal capillary refill, amputation (Right hallux and left transmetatarsal amputation.). Absent: calf tenderness <Sari Shahher 04/04/21 09:31> - Detailed Lower Extremity Exam Foot/Toes: Right hammer toe, Right nail abnormalities, Bilateral amputation (right hallux and left transmetatarsal), Bilateral erythema (incision sites), Bilateral swelling, Bilateral wound <Sari Shahher 04/04/21 09:31> Top foot image: 1 - Patient is s/p right foot wound debridement x2, right 2nd toenail avulsion, left foot I & D, left trasmetatarsal amputation, and application of ellis drain. B/l feet wounds dressings changed. Sites were cleansed with betadine, dressed with soaked 4x4, lirlex and susanna wrap. For wounds debridement and measurements see operative findings: the right hallus previous amputation site measured 5 x 1.8 x 0.1 cm base 100 % granular, no drainage. Right 2nd distal toe 2 x 1.5 x 0.1 cm base 100% granular. left transmetatarsal amputation kay in place, no drainage noted. ELLIS drain with bloody drainage noted. <Jennifer Shah 04/04/21 09:31> Progress Note: A&P (1) Gangrene of left foot Status: Acute (2) Diabetic microangiopathy Status: Acute (3) Cellulitis of left foot Status: Acute (4) Diabetic ulcer of right foot Status: Acute (5) Osteomyelitis Status: Acute (6) Type 2 diabetes mellitus Status: Chronic (7) Hypertension Status: Chronic (8) Hyperlipidemia Status: Chronic (9) Noncompliance with medication regimen Status: Chronic (10) Tobacco abuse Status: Acute (11) PAD (peripheral artery disease) Status: Acute <Brandi Garces - 04/04/21 13:12> (1) Gangrene of left foot Start date: 04/04/21 Start time: 08:00 Status: Acute (2) Diabetic microangiopathy Start date: 04/04/21 Start time: 08:00 Status: Acute (3) Cellulitis of left foot Start date: 04/04/21 Start time: 08:00 Sta
--- NOTE | 2021-04-04 09:57 | HMH.PTEV ---
Physical Therapy Evaluation Rehab PT IP Evaluation Start: 04/03/21 15:13 Freq: ONCE Status: Active Protocol: Document 04/04/21 09:55 CANDIDA (Rec: 04/04/21 09:57 PHORAYSA [id number]) Subjective/History History History 55 yowf adm to [facility] with B foot wounds, now S/P L TMA. She reports she lives with family, 3-4 steps to enter the home, she was independent with all mobility prior to adm. Subjective Subjective Pt with no c/o this am. Rehab PT IP Eval Objective Appearance Patient Behavior Appropriate Patient Orientation Person,Place,Time Difficulty following instructions none Speech Pattern Clear Ambulation Patient Able to Ambulate Yes Ambulation Observation IP General Gait Pattern Observation Decrease Weight Bear (L) Ambulation Distance (feet) 20 Ambulation Assistive Device Rolling Walker Ambulation Ability Supervision/Stand by Balance Ability to Arise Able, uses arms to help Sitting Balance Steady, safe Standing Balance Steady, wide stance Dynamic Sitting Balance Ability Good Dynamic Standing Balance Ability Good Transfers Bed Transfer Ability Supervision/Stand by Chair Transfer Ability Supervision/Stand by Sit to Stand Bed Transfer Ability Supervision/Stand by Sit to Stand Chair Transfer Ability Supervision/Stand by Rehab PT IP prob,goals,plan Problems Date of Evaluation: 04/04/21 Discharge Plan PT Discharge Plan Pt is appropriate to return home once medically stable, She will need RW for home use. G -code Required No Eval Complexity Eval Charge Codes 29725 - Moderate Complexity PHYSICIAN CERTIFICATION: I certify the specified therapy services for Rajni Negro are required, authorized, and reviewed every 30 days.
--- NOTE | 2021-04-04 11:07 | SW/DCPLANNER ---
Addendum entered by [facility] 04/05/21 15:05: Dosage has been changed from 1gm to 750 mg: this has been faxed to [facility]. Addendum entered by [facility] 04/05/21 14:02: Virgen looney/ Kamila has stated that services will begin tomorrow for this patient. Addendum entered by [facility] 04/05/21 13:43: Due to delay time in hearing back from [facility] patient information has also been faxed to Kamila and [employer]. Addendum entered by [facility] 04/05/21 10:12: Per Nilsa looney/ Zaki cost for 2 weeks of Dapto is $20: patient is fine with paying this rosales. I have informed Dr Garces and Dr Driver of this plan. I again explained discharge options to patient: return to [facility] daily outpatient dept, home health services or placement. Patient is only agreeable to home health services at this time: will be set up with [facility]. Patients daughter is agreeable with discharge plan and I will provide this patient with my card as a future reference and information on [employer]. Addendum entered by [facility] 04/05/21 09:02: Patient is now agreeable to PICC line. Dr Garces has requested IV Dapto 1gm daily x 2 weeks. Patient information/order has been faxed to [facility] for out of pocket expense: I have informed patients nurse (Alma) to wait for PICC placement until I hear back from [facility]. I will continue to update patient, Dr Garces and Dr Driver. Home health will be set up today prior to discharge. Addendum entered by [facility] 04/04/21 12:59: I spoke with patients daughter (Kee) and she has stated that she is fine with this patient returning home with home health services and will assist with dressing changes the days that home health can not. Addendum entered by [facility] 04/04/21 11:52: Krystal looney/ Gigi stated that rollator will be delivered later today or tomorrow morning. Original Note: I received a referral regarding discharge plans for this patient: Needs DME (b/l post op loan crane), HHC vs infusion twice weekly. Per Dr Garces patient refuses PICC and will start oral antibiotics: Clinda and levo x 2 weeks. Patient stated that she resides at home with daughter and grandchildren and her plan is to return home. Patient stated that she does need a rollator walker at home: I will order this through [facility]. Patient is also agreeable to home health service (no preference) and this will be set up at discharge. Patient is aware that the plan is to discharge home tomorrow and stated that she would be speaking with her family regarding transportation home. Patient did not have any further needs at this time.
--- NOTE | 2021-04-04 11:16 | PC.NURSE ---
patient will need a rollator walker with seat rather than a cane or standard walker upon discharge r/t gait and mobility issues.
--- NOTE | 2021-04-04 14:40 | HMH.ANESII ---
[facility] Anesthesia Record Part II Discharge Time: 15:40 Destination: Surgical Day Care (OP Surgery) PACU nurse assessment reviewed?: Yes Patient Condition:: Good Anesthesia Complications:: None Swallowing reflex intact?: Yes Cyanosis?: No Blood Pressure: 147/88 Pulse Rate: 95 Temperature: 99 F Mental Status: Alert & Oriented Pain level:: 0 Nausea and/or vomitting:: None Intake, IV Amount: 0
--- NOTE | 2021-04-04 15:22 | PC.NURSE ---
PT TEMPERATURE 100.3. TYLENOL GIVEN AND INCENTIVE SPIROMETER ENCOURAGED.
[2021-04-05] VITALS: BP 125/61; PULSE 91; RESP 22; TEMP 37.3; O2SAT 95
[2021-04-05 04:00] VITALS: BP 136/69; PULSE 72; RESP 16; TEMP 37.1; O2SAT 95
--- NOTE | 2021-04-05 05:01 | PC.NURSE ---
pt is in a non weigh bed and had surgery on her foot, and can not stand with her weight on that foot.
--- NOTE | 2021-04-05 05:20 | PC.NURSE ---
Patient rested well thru this RN shift, no new complaints or concerns noted.
[2021-04-05 06:35] LABS: Chloride 109 mmol/L (98-107); Sodium 135 mmol/L (136-145)
[2021-04-05 06:38] LABS: Alanine Aminotransferase 21 U/L (12-78); Albumin Level 3.1 g/dl (3.5-5.0); Alkaline Phosphatase 173 U/L (38-126); Aspartate Amino Transferase 47 U/L (14-36); Bilirubin,Total 0.4 mg/dl (0.2-1.3); Blood Urea Nitrogen 17 mg/dl (7-17); Carbon Dioxide 27 mmol/L (22.0-30.0); Creatinine Clearance Estimated 58 mL/min (50-200); Estimated Glomerular Filt Rate 46 ml/min (>60); GFR (African American) 56 ML/MIN (>60); Globulin 3.1 g/dL (1.3-3.2); Total Protein,Serum 6.2 g/dl (6.3-8.2)
[2021-04-05 06:39] LABS: Calcium 7.8 mg/dl (8.4-10.2); Glucose 132 mg/dl (74-100)
[2021-04-05 06:54] LABS: Basophils % 0.4 % (0.1-2.0); Eosinophils # 0.2 K/mm3 (0.0-0.4); Eosinophils % 2.2 % (0.1-12.0); Lymphocytes # 0.9 K/mm3 (0.7-4.5); Lymphocytes % 10.4 % (10-50); Mean Corpuscular HGB Conc 31.2 g/dL (31.8-35.4); Mean Corpuscular Hemoglobin 27.6 pg (27.0-31.2); Mean Corpuscular Volume 88.5 fl (81-99); Mean Platelet Volume 7.7 fl (7.4-10.4); Monocytes # 0.4 K/mm3 (0.1-1.0); Monocytes % 4.5 % (1.7-9.3); Neutrophils # 7.4 K/mm3 (1.8-7.8); Neutrophils % 82.5 % (37.0-80.0); Platelet Count 289 K/mm3 (142-424); Red Blood Count 3.62 M/mm3 (4.20-5.40); Red Cell Distribution Width 12.9 % (11.5-17.5)
[2021-04-05 08:00] VITALS: BP 172/70; PULSE 87; RESP 18; TEMP 36.8; O2SAT 98
--- NOTE | 2021-04-05 08:24 | HMH.ACPN2 ---
<Klarissa Sinha - Last Filed: 04/05/21 08:24> Internal Medicine - PN: Subj *Date: 04/05/21 *Time: 08:24 Interval history: Patient states she is having a lot of low back pain this morning. The pain in her foot is actually minimal. She had difficulty sleeping due to her back pain. She was able eat breakfast this morning. Exam Vital signs and Labs for Last 24 Hours: Temp Pulse Resp BP Pulse Ox 98.2 F 87 18 172/70 H 98 04/05/21 08:00 04/05/21 08:00 04/05/21 08:00 04/05/21 08:00 04/05/21 08:00 Laboratory Results - last 24 hr 04/04/21 06:00: Stl Aeromonas (PCR) Not detected, Stl C. cayetanensis PCR Not detected, Stool Rotavirus (PCR) Not detected, Stl Adenov F 40/41 PCR Not detected, Stool Astrovirus (PCR) Not detected, Stool Campylobacter PCR Not detected, Stl C.difficile Tox PCR Not detected, Stool Cryptosporidium PCR Not detected, Stl E.coli Shiga Tox PCR Not detected, Stool E coli O157 PCR Not detected, Stl Enterotoxigenic E PCR Not detected, Stool EPEC (PCR) Not detected, Stool EAEC (PCR) Not detected, Stl E. histolytica PCR Not detected, Stool Giardia Lamblia PCR Not detected, Stool Salmonella PCR Not detected, Stool Sapovirus (PCR) Not detected, Stl P. shigelloides PCR Not detected, Stl Shigella/EIEC PCR Not detected, St Y.enterocolitica PCR Not detected, Stool Vibrio (PCR) Not detected, Stl Vibrio cholerae PCR Not detected, Stl Norovirus GI/GII PCR Not detected 04/05/21 05:57: WBC 9.0, RBC 3.62 L, Hgb 10.0 L, Hct 32.0 L, MCV 88.5, MCH 27.6, MCHC 31.2 L, RDW 12.9, Plt Count 289, MPV 7.7, Neut % (Auto) 82.5 H, Lymph % (Auto) 10.4, Scott % (Auto) 4.5, Eos % (Auto) 2.2, Baso % (Auto) 0.4, Neut # (Auto) 7.4, Lymph # (Auto) 0.9, Scott # (Auto) 0.4, Eos # (Auto) 0.2, Baso # (Auto) 0.0 04/05/21 05:57: Sodium 135 L, Potassium 4.0, Chloride 109 H, Carbon Dioxide 27, Anion Gap 3.0 L, BUN 17, Creatinine 1.20 H, Estimated Creat Clear 58, Estimated GFR 46 L, Est GFR ( Amer) 56 L, Glucose 132 H D, Calcium 7.8 L, Total Bilirubin 0.4, AST 47 H D, ALT 21, Alkaline Phosphatase 173 H, Total Protein 6.2 L, Albumin 3.1 L, Globulin 3.1, Albumin/Globulin Ratio 1.0 L I & O for Last 24 hours: Intake & Output 04/02/21 04/03/21 04/04/21 04/05/21 11:59 11:59 11:59 11:59 Intake Total 600 / 600 240 / 240 1000 / 1000 840 / 840 Output Total 700 / 700 950 / 950 895 / 895 Balance -100 / -100 240 / 240 50 / 50 -55 / -55 Weight 152 lb 157 lb 156 lb 15.506 oz Microbiology Reports for the Last 24 Hours: Microbiology 04/03/21 14:10 Foot,Left Gram Stain - Final 04/03/21 14:10 Foot,Left Wound Culture - Preliminary NO GROWTH AFTER 24 HOURS 04/03/21 14:10 Foot,Left - Left Bone Culture - Preliminary NO GROWTH AFTER 24 HOURS 04/03/21 14:10 Foot,Left - Left Bone Culture - Preliminary NO GROWTH AFTER 24 HOURS - Constitutional no acute distress - *Routine Respiratory Exam Present: CTA bilaterally - *Routine Cardiovascular Exam Present: RRR - *Routine Abdominal Exam Present: soft, normoactive bowel sounds. Absent: tenderness - *Routine Extremities Exam Absent: cyanosis, clubbing, edema - *Routine Skin Exam Present: warm. Absent: rash Comments: Bilateral feet with dressings in place Assessment and Plan (1) Gangrene of left foot Start date: 04/04/21 Start time: 08:00 Status: Acute Category: Medical Code(s): I96 - Gangrene, not elsewhere classified (2) Diabetic microangiopathy Start date: 04/04/21 Start time: 08:00 Status: Acute Category: Medical Code(s): E11.51 - Type 2 diabetes mellitus with diabetic peripheral angiopathy without gangrene (3) Cellulitis of left foot Start date: 04/04/21 Start time: 08:00 Status: Acute Category: Medical Code(s): L03.116 - Cellulitis of left lower limb (4) Diabetic ulcer of right foot Start date: 04/04/21 Start time: 08:00 Status: Acute Catego
--- NOTE | 2021-04-05 09:53 | HMH.ORTHPN ---
Subjective Date: 04/05/21 <Jennifer Shah 04/05/21 10:38> Time: 08:00 <Jennifer Shah 04/05/21 10:38> Principal diagnosis: PAD/left foot gangrene/Osteomyelitis <Jennifer Shah 04/05/21 10:38> Interval history: Patient resting in bed alert and oriented x3. No acute distress noted. S/P Right wound debridement x2, Right 2nd toenail avulsion, Left foot incision and drainage, Left transmetatarsal amputation, Left callus debridement, and Application of JOSE JUAN drain. Patient denies pain to both feet with palpation, right distal dorsal ulcer previous hallux amputation site intact, no purulence malodor drainage noted wound johanny 100 % granular no debridement. Right second toe avulsed site no purulence or drainage noted. Left transmetatarsal amputation site with kay noted. There is no purulence or drainage noted at site. B/L feet wounds dressing changed. Patient discharge instruction given on signs and symptoms of infection and when to call provider, medications, post op shoes, weight bearing. Patient verbalized understanding. <Jennifer Shah 04/05/21 10:38> PN: Obj Ex Vital signs: Temp Pulse Resp BP Pulse Ox 98.2 F 87 18 172/70 H 98 04/05/21 08:00 04/05/21 08:00 04/05/21 08:00 04/05/21 08:00 04/05/21 08:00 <Brandi Garces - 04/05/21 11:05> Temp Pulse Resp BP Pulse Ox 98.2 F 87 18 172/70 H 98 04/05/21 08:00 04/05/21 08:00 04/05/21 08:00 04/05/21 08:00 04/05/21 08:00 <Jennifer Shah 04/05/21 10:38> - Constitutional no acute distress <Jennifer Shah 04/05/21 10:38> - Routine HEENT Exam Head: Present: normocephalic <Jennifer Shah 04/05/21 10:38> Eye: Present: EOMI, PERRL <Jennifer Shah 04/05/21 10:38> ENT: Present: mucous membranes moist <[facility] 04/05/21 10:38> - Routine Neck Exam Present: supple <[facility] 04/05/21 10:38> - Routine Respiratory Exam Absent: respiratory distress <[facility] 04/05/21 10:38> - Routine Cardiovascular Exam Present: RRR <[facility] 04/05/21 10:38> - Routine Abdominal Exam Present: soft (deferred), normoactive bowel sounds <[facility] 04/05/21 10:38> - Routine Extremities Exam Present: pulses intact, normal capillary refill, amputation. Absent: calf tenderness <[facility] 04/05/21 10:38> - Detailed Lower Extremity Exam Foot/Toes: Bilateral amputation, Bilateral erythema, Bilateral nail abnormalities, Bilateral swelling, Bilateral tenderness <[facility] 04/05/21 10:38> Top foot image: 1 - 1) Right anterior bach superifical ulcer/abrasion noted thru skin only. Wound was 100% granular, 2x2x0.0cm. No SOI. 2) Right hallux previous amputation wound site measured 5 x 1.8 x 0.1 cm, base 100 % granular, no drainage. 3) Right 2nd distal toe wound: 2 x 1.5 x 0.1 cm, base 100% granular. No new SOI noted to right foot. 4) Left transmetatarsal amputation sutures/kay in place, no drainage noted. JOSE JUAN drain with bloody drainage noted. Mild cecilio-incisional edema and erythema. Skin is warm with pedal pulses noted. <Brandi Garces - 04/05/21 11:05> Progress Note: A&P (1) Gangrene of left foot Status: Acute (2) Diabetic microangiopathy Status: Acute (3) Cellulitis of left foot Status: Acute (4) Diabetic ulcer of right foot Status: Acute (5) Osteomyelitis Status: Acute (6) Type 2 diabetes mellitus Status: Chronic (7) Hypertension Status: Chronic (8) Hyperlipidemia Status: Chronic (9) Noncompliance with medication regimen Status: Chronic (10) Tobacco abuse Status: Acute (11) PAD (peripheral artery disease) Status: Acute <Jennifer Shah - 04/05/21 09:53> (1) Gangrene of left foot Status: Acute (2) Diabetic microangiopathy Status: Acute (3) Cellulitis of left foot Status: Acute (4) Diabetic ulcer of right foot Status: Acute
--- NOTE | 2021-04-05 10:22 | XR_ITS ---
FINAL REPORT CLINICAL HISTORY: Confirm PICC line placement COMPARISON: 03/31/2021 FINDINGS: SINGLE VIEW CHEST The heart is normal in size. The mediastinum is unremarkable. PICC line tip courses in the superiorly, likely in the left jugular vein. The tip is not visualized. The lungs are clear. There is no pneumothorax. IMPRESSION: PICC line tip not visualized. Reviewed, Interpreted and Dictated by Brien Jacobs III, MD Transcribed by Debbie Cottrell Authenticated by Brien Jacobs III, MD on 04/05/2021 04:17:[address] [facility]
[2021-04-05 11:13] VITALS: BP 158/76; PULSE 74; RESP 18; TEMP 37; O2SAT 98
--- NOTE | 2021-04-05 11:17 | HMH.PHAINT ---
Dishcharge counseling complete. Informed patient about new meds, what they are for, how to take them, and possible adverse reactions. Pt understood and did not have any questions or concerns
[2021-04-05 11:33] LABS: POC Glucose,Bedside 208 (70-110)
--- NOTE | 2021-04-05 12:20 | PC.NURSE ---
awaiting picc to be placed and to administer her first dose of medication prior to D/C.
--- NOTE | 2021-04-05 13:08 | PC.NURSE ---
Ronit called nurse to see when PICC was going to be placed. She stated that she was going to try to make it up her soon.
--- NOTE | 2021-04-05 14:51 | PC.NURSE ---
Spoke with Dr. Marquez office and stated pt needed to have zosy and daptomycin prior to d/c. RN at bedside, adjusting PICC.
--- NOTE | 2021-04-05 15:00 | XR_ITS ---
FINAL REPORT CLINICAL HISTORY: PICC Placement COMPARISON: 04/05/2021 FINDINGS: SINGLE VIEW CHEST The heart is normal in size. The mediastinum is unremarkable. Left PICC line has been repositioned, tip now resides in the lower SVC. The lungs are clear. There is no pneumothorax. IMPRESSION: PICC line tip in the lower SVC. Reviewed, Interpreted and Dictated by Brien Jacobs III, MD Transcribed by Debbie Cottrell Authenticated by Brien Jacobs III, MD on 04/05/2021 04:17:30 PM [facility]
[2021-04-05 15:02] VITALS: BP 154/76; PULSE 82; RESP 16; TEMP 37.1; O2SAT 95
--- NOTE | 2021-04-05 15:25 | PC.NURSE ---
waiting for PICC placement confirmation from RAD
--- NOTE | 2021-04-05 16:42 | PC.NURSE ---
Awaiting ride at this time, was told per RAD, CXR for picc placement would be read by 1630. It has been read.
[2021-04-06 01:54] LABS: POC Glucose,Bedside 143 (70-110)
[2021-04-06 01:54] LABS: POC Glucose,Bedside 260 (70-110)
--- NOTE | 2021-04-08 20:59 | HMH.DCSUM ---
General - General Admission date:: 03/31/21 <Gio Driver - 05/10/21 22:27> 03/31/21 <Klarissa Sinha - 04/08/21 21:17> Discharge date: 04/05/21 <BharathKlarissa - 04/08/21 21:17> HPI HPI: Rajni is a 55-year-old female with a history of poorly controlled type 2 diabetes presenting for chief complaint of left foot wound. She states that for the past week, she has been having increasing skin changes on her left toe. She states it started off as a blister, which then popped and has now turned black with a area of worsening erythema. Patient also had an amputation of great toe on her right foot and has an open wound there but does not seem concerned. Patient states she is not compliant with her diabetes medications. She denies upper respiratory symptoms, chest pain, dyspnea, and/V/D, changes GI/. She denies unilateral leg swelling. She believes she had a fever at home but did not measure her temperature. Patient is a 55-year-old female with a history of hypertension and diabetes mellitus, with poor compliance with medications, presenting for chief complaint of left foot wound. Differential diagnosis includes, but is not limited to, diabetic foot infection, diabetic foot wound, osteomyelitis, arterial occlusion, other. Initial exam, patient is hypertensive and mildly tachycardic but states that she has not been compliant with her hypertension medications. She took her home dose. Patient is afebrile. Physical exam shows palpable DP pulses bilaterally. Patient has necrotic tissue on the lateral side of her great left toe with erythema extending towards the midfoot. She was evaluated with CBC, CMP, CRP, ESR and x-rays of both her feet. Diabetic wound care consult was placed. Patient's labwork is significant for elevated ESR of 88 and elevated CRP, raising concern for osteomyelitis despite no radiographic evidence on XR of feet. Wound care recommended evaluation with CT imaging. Given concern for osteomyelitis, patient was admitted for IV antibiotics. She was started on zosyn and vancomycin in the emergency department. (above as per ER physician) <Klarissa Sinha - 04/08/21 21:17> Hospital Course Hospital Course: The left foot CT showed soft tissue swelling of the great toe with a small amount of soft tissue air. She had ABIs and they showed a borderline ANGELY on the right and a normal ANGELY on the left. She was admitted and started on IV antibiotics and podiatry was consulted. Cardiology was consulted as well due to the abnormal ANGELY. She underwent runoff of the left lower extremity which showed peripheral arterial disease. She had a patent 2 1/2 vessel runoff into the left foot and primarily had small vessel microvascular apathy which was not amendable to either surgical nor percutaneous revascularization. Cardiology did not feel there was anything that could be done invasively to improve patient's circulation, but they felt she would heal a transmetatarsal amputation without difficulty. Her blood pressure was not well controlled and Norvasc was added. She was started on basal insulin as well and Toradol for some back pain which she began having after her vascular procedure. Dr. Garces saw the patient in consultation and planned for bilateral foot wound debridements and a possible left transmetatarsal amputation on the left. The patient did break out in a rash with her dose of vancomycin and it was discontinued. She was started on clindamycin. Cardiology felt after her surgery she would need to be started on Xarelto 2.5 mg twice daily along with an 81 mg aspirin daily. Her Norvasc dose was increased to 10 mg daily as well for better blood pressure control. The patient was taken to the OR on 04/03/2021 and had right foot wound debridement x2, right second toenail avulsion, left foot incision and drainage with left transmetatarsal amputation, as well as a left callus debridement and application of a JOSE JUAN drain. She tolerated the pr
[2021-11-16 10:57] LABS: POC Glucose,Bedside 81 (70-110)
== END 2021-04-05 16:50 | disposition home health service (06) | DRG 617 ==
LOC: ER 13:17 → 2ND 13:27
PROVIDERS: Internal Medicine; Nurse Practitioner Family; Podiatrist; Admitting Provider Family Medicine; Emergency Provider Emergency Medicine; Visit Provider Family Medicine
PROC: B41G1ZZ Fluoroscopy of Left Lower Extremity Arteries using Low Osmolar Contrast (ICD-10-PCS; principal; 2021-03-31 21:50)
DX: E11.69 Type 2 diabetes mellitus with other specified complication (principal); M86.9 Osteomyelitis, unspecified; E11.52 Type 2 diabetes mellitus with diabetic peripheral angiopathy with gangrene; I96 Gangrene, not elsewhere classified; E11.65 Type 2 diabetes mellitus with hyperglycemia; I10 Essential (primary) hypertension; E78.5 Hyperlipidemia, unspecified; Z91.14 Patient's other noncompliance with medication regimen; Z91.19 Patient's noncompliance with other medical treatment and regimen; F17.210 Nicotine dependence, cigarettes, uncomplicated; E11.621 Type 2 diabetes mellitus with foot ulcer; I77.1 Stricture of artery
CPT/HCPCS: 11042 ×2; 11730; 28810 ×5; 36245; 36410; 36415; 36569; 71045; 71046; 73620; 73630; 73700; 75710; 80048; 80053; 80061; 82248; 82803; 82962; 83036; 83605; 85007; 85025; 85651; 86140; 87040; 87070; 87075; 87077; 87186; 87205; 87506; 88304; 88305; 88307; 88311; 93005; 93923; 96365; 96367; 97162; 99152; 99284; C1725; C1751; C1769; C1894; C9803; J0878; J1644; J2405; J2543; J3370; Q9966; U0003; U0005

== ENCOUNTER → 2021-04-10 10:16 | Outpatient (CLI) | payer MEDICARE, SELFPAY ==
[2021-04-10 11:07] LABS: Basophils % 0.6 % (0.1-2.0); Eosinophils # 0.2 K/mm3 (0.0-0.4); Eosinophils % 3.8 % (0.1-12.0); Hematocrit 31.5 % (37.0-47.0); Hemoglobin 9.9 g/dL (12.2-16.2); Lymphocytes # 1.1 K/mm3 (0.7-4.5); Lymphocytes % 16.4 % (10-50); Mean Corpuscular HGB Conc 31.6 g/dL (31.8-35.4); Mean Corpuscular Hemoglobin 27.6 pg (27.0-31.2); Mean Corpuscular Volume 87.6 fl (81-99); Mean Platelet Volume 7.4 fl (7.4-10.4); Monocytes # 0.4 K/mm3 (0.1-1.0); Monocytes % 5.8 % (1.7-9.3); Neutrophils # 4.8 K/mm3 (1.8-7.8); Neutrophils % 73.4 % (37.0-80.0); Platelet Count 419 K/mm3 (142-424); White Blood Count 6.5 K/mm3 (4.8-10.8)
[2021-04-10 11:53] LABS: Erythrocyte Sedimentation Rate > 140 mm/hr (0-30)
[2021-04-10 12:04] LABS: Alanine Aminotransferase 21 U/L (12-78); Albumin Level 3.4 g/dl (3.5-5.0); Albumin/Globulin Ratio 1.4 (1.1-1.8); Alkaline Phosphatase 200 U/L (38-126); Anion Gap 8.3 mEq/L (5-15); Aspartate Amino Transferase 75 U/L (14-36); Bilirubin,Total 0.3 mg/dl (0.2-1.3); Blood Urea Nitrogen 14 mg/dl (7-17); Carbon Dioxide 30 mmol/L (22.0-30.0); Chloride 101 mmol/L (98-107); Creatine Kinase 1093 U/L (30-135); Estimated Glomerular Filt Rate 65 ml/min (>60); GFR (African American) 78 ML/MIN (>60); Globulin 2.5 g/dL (1.3-3.2); Glucose 213 mg/dl (74-100); Potassium 4.3 mmoL/L (3.5-5.1); Sodium 135 mmol/L (136-145); Total Protein,Serum 5.9 g/dl (6.3-8.2)
[2021-04-10 12:10] LABS: C-Reactive Protein 18.8 mg/L (0-4)
== END ==
PROVIDERS: Visit Provider Podiatrist
DX: Z51.81 Encounter for therapeutic drug level monitoring (principal); Z79.2 Long term (current) use of antibiotics
CPT/HCPCS: 80053; 82550; 85025; 85651; 86140

== ENCOUNTER → 2021-04-12 09:51 | Outpatient (CLI) | payer MEDICARE, SELFPAY ==
[2021-04-12 10:20] LABS: Basophils % 0.6 % (0.1-2.0); Eosinophils # 0.3 K/mm3 (0.0-0.4); Hematocrit 31.9 % (37.0-47.0); Hemoglobin 10.1 g/dL (12.2-16.2); Lymphocytes # 1.2 K/mm3 (0.7-4.5); Lymphocytes % 15.5 % (10-50); Mean Corpuscular HGB Conc 31.8 g/dL (31.8-35.4); Mean Corpuscular Hemoglobin 28.1 pg (27.0-31.2); Mean Corpuscular Volume 88.3 fl (81-99); Monocytes # 0.4 K/mm3 (0.1-1.0); Monocytes % 4.8 % (1.7-9.3); Neutrophils # 5.9 K/mm3 (1.8-7.8); Neutrophils % 75.1 % (37.0-80.0); Platelet Count 452 K/mm3 (142-424); Red Blood Count 3.61 M/mm3 (4.20-5.40); Red Cell Distribution Width 13.7 % (11.5-17.5); White Blood Count 7.9 K/mm3 (4.8-10.8)
[2021-04-12 11:05] LABS: Chloride 96 mmol/L (98-107); Sodium 130 mmol/L (136-145)
[2021-04-12 11:07] LABS: Blood Urea Nitrogen 26 mg/dl (7-17); Estimated Glomerular Filt Rate 36 ml/min (>60)
[2021-04-12 11:08] LABS: Alanine Aminotransferase 16 U/L (12-78); Albumin Level 3.6 g/dl (3.5-5.0); Albumin/Globulin Ratio 1.3 (1.1-1.8); Alkaline Phosphatase 209 U/L (38-126); Aspartate Amino Transferase 63 U/L (14-36); Bilirubin,Total 0.2 mg/dl (0.2-1.3); Calcium 8.8 mg/dl (8.4-10.2); Carbon Dioxide 30 mmol/L (22.0-30.0); Creatine Kinase 840 U/L (30-135); GFR (African American) 43 ML/MIN (>60); Globulin 2.8 g/dL (1.3-3.2); Glucose 234 mg/dl (74-100); Total Protein,Serum 6.4 g/dl (6.3-8.2)
[2021-04-12 11:14] LABS: C-Reactive Protein 10.6 mg/L (0-4)
[2021-04-12 11:27] LABS: Erythrocyte Sedimentation Rate 60 mm/hr (0-30)
== END ==
PROVIDERS: Visit Provider Podiatrist
DX: Z51.81 Encounter for therapeutic drug level monitoring (principal); Z79.2 Long term (current) use of antibiotics
CPT/HCPCS: 80053; 82550; 85025; 85651; 86140

== ENCOUNTER → 2021-04-17 10:06 | Outpatient (CLI) | payer MEDICARE, SELFPAY ==
[2021-04-17 11:01] LABS: Basophils % 0.6 % (0.1-2.0); Eosinophils # 0.4 K/mm3 (0.0-0.4); Hemoglobin 9.9 g/dL (12.2-16.2); Lymphocytes % 14.6 % (10-50); Mean Corpuscular HGB Conc 31.9 g/dL (31.8-35.4); Mean Corpuscular Hemoglobin 28.4 pg (27.0-31.2); Mean Corpuscular Volume 89.2 fl (81-99); Mean Platelet Volume 7.4 fl (7.4-10.4); Monocytes # 0.4 K/mm3 (0.1-1.0); Monocytes % 5.8 % (1.7-9.3); Neutrophils # 5.1 K/mm3 (1.8-7.8); Platelet Count 417 K/mm3 (142-424); Red Blood Count 3.48 M/mm3 (4.20-5.40); Red Cell Distribution Width 13.4 % (11.5-17.5); White Blood Count 6.9 K/mm3 (4.8-10.8)
[2021-04-17 11:10] LABS: Chloride 99 mmol/L (98-107); Potassium 5.2 mmoL/L (3.5-5.1); Sodium 133 mmol/L (136-145)
[2021-04-17 11:12] LABS: Alanine Aminotransferase 13 U/L (12-78); Aspartate Amino Transferase 29 U/L (14-36); Blood Urea Nitrogen 40 mg/dl (7-17); Estimated Glomerular Filt Rate 27 ml/min (>60); GFR (African American) 33 ML/MIN (>60)
[2021-04-17 11:13] LABS: Albumin Level 3.7 g/dl (3.5-5.0); Albumin/Globulin Ratio 1.4 (1.1-1.8); Alkaline Phosphatase 138 U/L (38-126); Anion Gap 13.2 mEq/L (5-15); Bilirubin,Total 0.2 mg/dl (0.2-1.3); Calcium 9.2 mg/dl (8.4-10.2); Carbon Dioxide 26 mmol/L (22.0-30.0); Creatine Kinase 46 U/L (30-135); Globulin 2.7 g/dL (1.3-3.2); Glucose 176 mg/dl (74-100); Total Protein,Serum 6.4 g/dl (6.3-8.2)
[2021-04-17 11:19] LABS: C-Reactive Protein 26.8 mg/L (0-4)
[2021-04-17 12:16] LABS: Erythrocyte Sedimentation Rate 106 mm/hr (0-30)
== END ==
PROVIDERS: Visit Provider Podiatrist
DX: Z51.81 Encounter for therapeutic drug level monitoring (principal); Z79.2 Long term (current) use of antibiotics
CPT/HCPCS: 80053; 82550; 85025; 85651; 86140

== ENCOUNTER 2021-04-20 12:46 | Emergency (ER) | payer MEDICARE, SELFPAY ==
[2021-04-20 12:47] VITALS: BP 161/71; PULSE 80; RESP 14; TEMP 37.1; O2SAT 95; BMI 25.2
--- NOTE | 2021-04-20 13:19 | XR_ITS ---
FINAL REPORT CLINICAL HISTORY: cough COMPARISON: April 05, 2021 FINDINGS: The heart and mediastinal structures are stable. The lungs are clear. There is no pneumothorax. The support devices are stable in position. No acute osseous abnormality is identified. IMPRESSION: No suspicious cardiopulmonary process. No significant interval change. Reviewed, Interpreted and Dictated by Brien Jacobs III, MD Transcribed by CLARK Obando Authenticated by Brien Jacobs III, MD on 04/20/2021 02:01:00 PM [facility]
[2021-04-20 13:30] VITALS: BP 167/73; PULSE 84; O2SAT 93
--- NOTE | 2021-04-20 13:44 | PC.NURSE ---
labs obtained from pt PICC line in [facility] that she had existing upon arrival to ED
--- NOTE | 2021-04-20 13:53 | PC.NURSE ---
medicated per APR pt bed readjusted for comfort and lights turned on off in room per pt request so she can rest will continue to monitor
[2021-04-20 14:00] VITALS: BP 138/59; PULSE 80; RESP 16; O2SAT 91
[2021-04-20 14:02] LABS: Alanine Aminotransferase 28 U/L (12-78); Albumin Level 4.2 g/dl (3.5-5.0); Albumin/Globulin Ratio 1.3 (1.1-1.8); Alkaline Phosphatase 149 U/L (38-126); Anion Gap 14.3 mEq/L (5-15); Aspartate Amino Transferase 196 U/L (14-36); Basophils # 0.1 K/mm3 (0-0.2); Basophils % 0.6 % (0.1-2.0); Bilirubin,Total 0.4 mg/dl (0.2-1.3); Blood Urea Nitrogen 41 mg/dl (7-17); Calcium 9.8 mg/dl (8.4-10.2); Carbon Dioxide 26 mmol/L (22.0-30.0); Chloride 100 mmol/L (98-107); Creatinine Clearance Estimated 40 mL/min (50-200); Eosinophils # 0.4 K/mm3 (0.0-0.4); Eosinophils % 3.4 % (0.1-12.0); Estimated Glomerular Filt Rate 31 ml/min (>60); GFR (African American) 37 ML/MIN (>60); Globulin 3.2 g/dL (1.3-3.2); Glucose 143 mg/dl (74-100); Hematocrit 35.3 % (37.0-47.0); Hemoglobin 11.2 g/dL (12.2-16.2); Lipase 94 U/L (23-300); Lymphocytes # 0.9 K/mm3 (0.7-4.5); Lymphocytes % 8.3 % (10-50); Mean Corpuscular HGB Conc 31.7 g/dL (31.8-35.4); Mean Corpuscular Hemoglobin 27.8 pg (27.0-31.2); Mean Corpuscular Volume 87.8 fl (81-99); Mean Platelet Volume 7.8 fl (7.4-10.4); Monocytes # 0.4 K/mm3 (0.1-1.0); Monocytes % 3.5 % (1.7-9.3); Neutrophils # 8.9 K/mm3 (1.8-7.8); Neutrophils % 84.3 % (37.0-80.0); Platelet Count 433 K/mm3 (142-424); Potassium 5.3 mmoL/L (3.5-5.1); Red Blood Count 4.02 M/mm3 (4.20-5.40); Red Cell Distribution Width 13.9 % (11.5-17.5); Sodium 135 mmol/L (136-145); Total Protein,Serum 7.4 g/dl (6.3-8.2); White Blood Count 10.6 K/mm3 (4.8-10.8)
--- NOTE | 2021-04-20 14:49 | HMH.EDWEAK ---
ED Disposition Clinical Impression: Acute kidney injury, Myalgia Disposition: Home, Self-Care Condition on Discharge: Good Instructions: Acute Kidney Injury Referrals: Gio Driver MD [Primary Care Provider] - - Critical Care Critical Care Time: No Attestation: On 04/20/21, the high probability of a clinically significant, sudden or life threatening deterioration of the following system(s) required my full and direct attention, intervention and personal management. The time I documented below is in addition to time spent performing reported procedures but includes the following listed in this critical care notation. Medical Decision Making - Medical Records Medical records reviewed: Yes: I reviewed the patient's medical records. - Eben Inquiry Pt receiving controlled substance: Yes Eben was queried for this patient: No Reason not queried -: Eben login issues Risks and benefits of using a controlled substance: were discussed with pt by me Vital Signs: 04/20/21 12:47 04/20/21 13:30 04/20/21 14:00 Temperature 98.7 F Temperature Source Oral Pulse Rate 84 80 Pulse Rate [Right Radial] 80 Respiratory Rate 14 16 Blood Pressure 167/73 H 138/59 L Blood Pressure [Right Arm] 161/71 H Blood Pressure Mean 100 Blood Pressure Mean [Right Arm] 101 Blood Pressure Source [Right Arm] Automatic Cuff Blood Pressure Position [Right Arm] Sitting 02 Sat by Pulse Oximetry 95 93 L 91 L Oxygen Delivery Method Room Air - Lab Data Lab Results 04/20/21 13:42: WBC 10.6, RBC 4.02 L, Hgb 11.2 L, Hct 35.3 L, MCV 87.8, MCH 27.8, MCHC 31.7 L, RDW 13.9, Plt Count 433 H, MPV 7.8, Neut % (Auto) 84.3 H, Lymph % (Auto) 8.3 L, Coryell % (Auto) 3.5, Eos % (Auto) 3.4, Baso % (Auto) 0.6, Neut # (Auto) 8.9 H, Lymph # (Auto) 0.9, Coryell # (Auto) 0.4, Eos # (Auto) 0.4, Baso # (Auto) 0.1 04/20/21 13:42: Sodium 135 L, Potassium 5.3 H, Chloride 100, Carbon Dioxide 26, Anion Gap 14.3, BUN 41 H, Creatinine 1.70 H, Estimated Creat Clear 40, Estimated GFR 31 L, Est GFR ( Amer) 37 L, Glucose 143 H, Calcium 9.8, Total Bilirubin 0.4, AST 196 H, ALT 28, Alkaline Phosphatase 149 H, Total Protein 7.4, Albumin 4.2, Globulin 3.2, Albumin/Globulin Ratio 1.3, Lipase 94 Result diagrams: 04/20/21 13:42 04/20/21 13:42 Orders (Tests/Meds): ED MEDICATIONS Discontinued Medications Generic Name Dose Route Start Last Admin Trade Name Freq PRN Reason Stop Dose Admin Sodium Chloride 1,000 mls @ 999 mls/hr 04/20/21 13:30 04/20/21 13:47 Sod Chlor 0.9% 1000ml Bag IV 04/20/21 14:30 999 mls/hr .Q1H1M EUGENIA Administration Morphine Sulfate 4 mg 04/20/21 13:19 04/20/21 13:47 Morphine 4mg/Ml Syringe IV 04/20/21 13:20 4 mg ONCE ONE Administration Ondansetron HCl 4 mg 04/20/21 13:19 04/20/21 13:47 Ondansetron 4mg/2ml Vial IV 04/20/21 13:20 4 mg ONCE ONE Administration - Radiology Data #1 Image(s): Chest Image Reviewed: Yes I reviewed the patient's radiology results, Yes I reviewed the patient's radiology image, Yes I have reviewed radiologist's interpretation Preliminary Findings: Normal/NAD - Reevaluation(s) Time: 15:15 Reevaluation #1: On reevaluation, patient is feeling better. Pain is improved. She does have some mild acute kidney injury as well as some hyperkalemia. However the patient does not have significant levels as previously. We did administer fluids as well as insulin dextrose. I do believe that the patient should discontinue the daptomycin. I instructed her as well as the family member. She needs to follow-up with her PCP as well as primary signaling project engineer. Patient was given strict return precautions. Verbalized understanding. Medical Decision Narrative: 48-year-old female presented to the emergency department with some full body myalgias and general weakness. Patient has had some kidney issues secondary to her daptomycin. I do believe this could be contributing to h
[2021-04-20 16:59] VITALS: BP 145/62; PULSE 83; RESP 16; TEMP 37.1; O2SAT 94
== END 2021-04-20 17:00 | disposition home or self-care (01) ==
PROVIDERS: Emergency Provider Emergency Medicine; PCP Family Medicine
DX: N17.9 Acute kidney failure, unspecified (principal); M79.10 Myalgia, unspecified site; R53.1 Weakness; E87.5 Hyperkalemia; I10 Essential (primary) hypertension; I73.9 Peripheral vascular disease, unspecified; E78.5 Hyperlipidemia, unspecified; E11.9 Type 2 diabetes mellitus without complications; M86.9 Osteomyelitis, unspecified; F17.210 Nicotine dependence, cigarettes, uncomplicated; Z79.82 Long term (current) use of aspirin; Z79.84 Long term (current) use of oral hypoglycemic drugs; Z79.899 Other long term (current) drug therapy; Z98.890 Other specified postprocedural states; Z89.411 Acquired absence of right great toe; Z99.3 Dependence on wheelchair
CPT/HCPCS: 71045; 80053; 83690; 85025; 96365; 96375; 96376; 99285; J2405

== ENCOUNTER → 2021-05-13 10:17 | Outpatient (CLI) | payer MEDICARE, SELFPAY ==
[2021-05-13 10:46] LABS: Basophils # 1.1 K/mm3 (0-0.2); Basophils % 11.7 % (0.1-2.0); Eosinophils # 2.4 K/mm3 (0.0-0.4); Eosinophils % 24.4 % (0.1-12.0); Hematocrit 36.8 % (37.0-47.0); Hemoglobin 9.8 g/dL (12.2-16.2); Lymphocytes # 1.3 K/mm3 (0.7-4.5); Lymphocytes % 13.2 % (10-50); Mean Corpuscular HGB Conc 26.6 g/dL (31.8-35.4); Mean Corpuscular Hemoglobin 21.6 pg (27.0-31.2); Mean Corpuscular Volume 81.2 fl (81-99); Mean Platelet Volume 7.5 fl (7.4-10.4); Monocytes # 0.7 K/mm3 (0.1-1.0); Monocytes % 7.1 % (1.7-9.3); Neutrophils # 5.3 K/mm3 (1.8-7.8); Neutrophils % 55.2 % (37.0-80.0); Platelet Count 694 K/mm3 (142-424); Red Blood Count 4.53 M/mm3 (4.20-5.40); Red Cell Distribution Width 22.7 % (11.5-17.5); White Blood Count 9.7 K/mm3 (4.8-10.8)
[2021-05-13 11:44] LABS: Alanine Aminotransferase 15 U/L (12-78); Albumin Level 3.3 g/dl (3.5-5.0); Alkaline Phosphatase 131 U/L (38-126); Aspartate Amino Transferase 47 U/L (14-36); Bilirubin,Direct 0.3 mg/dl (0.0-0.4); Bilirubin,Total 0.3 mg/dl (0.2-1.3); Estimated Glomerular Filt Rate 57 ml/min (>60); GFR (African American) 69 ML/MIN (>60); Total Protein,Serum 5.8 g/dl (6.3-8.2)
[2021-05-13 11:50] LABS: C-Reactive Protein 3.8 mg/L (0-4)
== END ==
PROVIDERS: Visit Provider Internal Medicine Infectious Disease
DX: M86.172 Other acute osteomyelitis, left ankle and foot (principal); Z47.81 Encounter for orthopedic aftercare following surgical amputation
CPT/HCPCS: 80076; 80202; 82565; 85025; 86140

== ENCOUNTER 2021-05-14 15:10 | Emergency (ER) | payer MEDICARE, SELFPAY ==
[2021-05-14 15:13] VITALS: BMI 28.2
[2021-05-14 16:30] VITALS: BP 142/62; PULSE 92; RESP 16; TEMP 36.8; O2SAT 96; BMI 25.8
[2021-05-14 19:19] VITALS: BP 117/78; PULSE 78; RESP 16; TEMP 36.6; O2SAT 98
== END 2021-05-14 19:20 | disposition left against medical advice (07) ==
LOC: ER 15:24
PROVIDERS: Emergency Provider Emergency Medicine; PCP Physician Assistant
DX: T82.594A Other mechanical complication of infusion catheter, initial encounter (principal)
CPT/HCPCS: 96374; 99211

== ENCOUNTER → 2021-05-15 09:42 | Outpatient (CLI) | payer MEDICARE, SELFPAY ==
[2021-05-15 10:03] LABS: Basophils # 0.1 K/mm3 (0-0.2); Basophils % 1.6 % (0.1-2.0); Eosinophils # 1.5 K/mm3 (0.0-0.4); Eosinophils % 29.4 % (0.1-12.0); Hematocrit 27.9 % (37.0-47.0); Hemoglobin 8.9 g/dL (12.2-16.2); Lymphocytes # 0.7 K/mm3 (0.7-4.5); Lymphocytes % 13.9 % (10-50); Mean Corpuscular HGB Conc 31.7 g/dL (31.8-35.4); Mean Corpuscular Hemoglobin 27.5 pg (27.0-31.2); Mean Corpuscular Volume 86.8 fl (81-99); Mean Platelet Volume 8.1 fl (7.4-10.4); Monocytes # 0.2 K/mm3 (0.1-1.0); Monocytes % 4.4 % (1.7-9.3); Neutrophils # 2.6 K/mm3 (1.8-7.8); Neutrophils % 50.7 % (37.0-80.0); Platelet Count 257 K/mm3 (142-424); Red Blood Count 3.22 M/mm3 (4.20-5.40); White Blood Count 5.2 K/mm3 (4.8-10.8)
[2021-05-15 14:03] LABS: Alanine Aminotransferase 19 U/L (12-78); Aspartate Amino Transferase 51 U/L (14-36); Blood Urea Nitrogen 17 mg/dl (7-17); Calcium 8.4 mg/dl (8.4-10.2); Carbon Dioxide 29 mmol/L (22.0-30.0); Estimated Glomerular Filt Rate 57 ml/min (>60); GFR (African American) 69 ML/MIN (>60); Glucose 208 mg/dl (74-100)
[2021-05-15 14:09] LABS: C-Reactive Protein 5.9 mg/L (0-4)
[2021-05-15 14:28] LABS: Vancomycin,Trough 7.6 ug/mL (5.0-10.0)
[2021-05-15 17:28] LABS: Anion Gap 8.7 mEq/L (5-15); Chloride 103 mmol/L (98-107); Potassium 4.7 mmoL/L (3.5-5.1); Sodium 136 mmol/L (136-145)
[2021-05-15 17:31] LABS: Albumin Level 3.2 g/dl (3.5-5.0); Albumin/Globulin Ratio 1.3 (1.1-1.8); Alkaline Phosphatase 135 U/L (38-126); Bilirubin,Direct 0.2 mg/dl (0.0-0.4); Bilirubin,Total 0.2 mg/dl (0.2-1.3); Globulin 2.4 g/dL (1.3-3.2); Total Protein,Serum 5.6 g/dl (6.3-8.2)
== END ==
PROVIDERS: Visit Provider Internal Medicine Infectious Disease
DX: Z51.81 Encounter for therapeutic drug level monitoring (principal); Z79.2 Long term (current) use of antibiotics
CPT/HCPCS: 80053; 80202; 82248; 85025; 86140

== ENCOUNTER → 2021-05-22 13:38 | Outpatient (CLI) | payer MEDICARE, SELFPAY ==
[2021-05-22 14:36] LABS: Basophils # 0.1 K/mm3 (0-0.2); Basophils % 1.1 % (0.1-2.0); Eosinophils # 3.5 K/mm3 (0.0-0.4); Eosinophils % 48.2 % (0.1-12.0); Hemoglobin 9.4 g/dL (12.2-16.2); Lymphocytes # 1.2 K/mm3 (0.7-4.5); Lymphocytes % 15.8 % (10-50); Mean Corpuscular HGB Conc 33.5 g/dL (31.8-35.4); Mean Corpuscular Hemoglobin 27.8 pg (27.0-31.2); Mean Platelet Volume 8.6 fl (7.4-10.4); Monocytes # 0.4 K/mm3 (0.1-1.0); Monocytes % 5.1 % (1.7-9.3); Neutrophils # 2.2 K/mm3 (1.8-7.8); Neutrophils % 29.9 % (37.0-80.0); Platelet Count 256 K/mm3 (142-424); Red Blood Count 3.37 M/mm3 (4.20-5.40); Red Cell Distribution Width 14.4 % (11.5-17.5); White Blood Count 7.4 K/mm3 (4.8-10.8)
[2021-05-22 14:58] LABS: Alanine Aminotransferase 18 U/L (12-78); Aspartate Amino Transferase 58 U/L (14-36); Blood Urea Nitrogen 23 mg/dl (7-17); Estimated Glomerular Filt Rate 57 ml/min (>60); GFR (African American) 69 ML/MIN (>60)
[2021-05-22 14:59] LABS: Albumin Level 3.5 g/dl (3.5-5.0); Alkaline Phosphatase 136 U/L (38-126); Bilirubin,Direct 0.4 mg/dl (0.0-0.4); Bilirubin,Total 0.4 mg/dl (0.2-1.3); Total Protein,Serum 6.5 g/dl (6.3-8.2)
[2021-05-22 15:04] LABS: C-Reactive Protein 1.4 mg/L (0-4)
== END ==
PROVIDERS: Visit Provider Internal Medicine Infectious Disease
DX: I10 Essential (primary) hypertension (principal); E78.5 Hyperlipidemia, unspecified; E11.9 Type 2 diabetes mellitus without complications; Z79.4 Long term (current) use of insulin
CPT/HCPCS: 80076; 82565; 84520; 85025; 86140

== ENCOUNTER → 2021-05-29 13:41 | Outpatient (CLI) | payer MEDICARE, SELFPAY ==
[2021-05-29 14:11] LABS: Basophils # 0.1 K/mm3 (0-0.2); Basophils % 1.2 % (0.1-2.0); Eosinophils # 2.3 K/mm3 (0.0-0.4); Eosinophils % 34.1 % (0.1-12.0); Hemoglobin 8.9 g/dL (12.2-16.2); Lymphocytes # 1.6 K/mm3 (0.7-4.5); Mean Corpuscular HGB Conc 32.9 g/dL (31.8-35.4); Mean Corpuscular Hemoglobin 27.5 pg (27.0-31.2); Mean Corpuscular Volume 83.7 fl (81-99); Mean Platelet Volume 8.3 fl (7.4-10.4); Monocytes # 0.3 K/mm3 (0.1-1.0); Monocytes % 4.8 % (1.7-9.3); Neutrophils # 2.5 K/mm3 (1.8-7.8); Neutrophils % 36.8 % (37.0-80.0); Platelet Count 256 K/mm3 (142-424); Red Blood Count 3.23 M/mm3 (4.20-5.40); Red Cell Distribution Width 14.4 % (11.5-17.5); White Blood Count 6.9 K/mm3 (4.8-10.8)
[2021-05-29 14:13] LABS: Alanine Aminotransferase 27 U/L (12-78); Albumin Level 3.5 g/dl (3.5-5.0); Albumin/Globulin Ratio 1.2 (1.1-1.8); Alkaline Phosphatase 158 U/L (38-126); Anion Gap 8.3 mEq/L (5-15); Aspartate Amino Transferase 46 U/L (14-36); Bilirubin,Total 0.4 mg/dl (0.2-1.3); Blood Urea Nitrogen 24 mg/dl (7-17); Calcium 9.1 mg/dl (8.4-10.2); Carbon Dioxide 27 mmol/L (22.0-30.0); Chloride 106 mmol/L (98-107); Estimated Glomerular Filt Rate 42 ml/min (>60); GFR (African American) 51 ML/MIN (>60); Globulin 2.9 g/dL (1.3-3.2); Glucose 100 mg/dl (74-100); Potassium 4.3 mmoL/L (3.5-5.1); Sodium 137 mmol/L (136-145); Total Protein,Serum 6.4 g/dl (6.3-8.2)
[2021-05-29 14:20] LABS: C-Reactive Protein 5.8 mg/L (0-4)
[2021-05-29 14:47] LABS: Erythrocyte Sedimentation Rate 101 mm/hr (0-30)
== END ==
PROVIDERS: Visit Provider Podiatrist
DX: S91.302D Unspecified open wound, left foot, subsequent encounter (principal); Z89.419 Acquired absence of unspecified great toe; Z89.432 Acquired absence of left foot
CPT/HCPCS: 80053; 85025; 85651; 86140

== ENCOUNTER 2021-06-26 10:00 | Emergency (ER) | payer MEDICARE, SELFPAY ==
[2021-06-26 10:01] VITALS: BP 121/60; PULSE 67; RESP 15; TEMP 36.8; O2SAT 94; BMI 23.8
--- NOTE | 2021-06-26 10:05 | HMH.EDDIZZ ---
ED Disposition Clinical Impression: Hypotension arterial Qualifiers: Hypotension type: hypotension due to hypovolemia Qualified Code(s): I95.89 - Other hypotension; E86.1 - Hypovolemia Disposition: Home, Self-Care Condition on Discharge: Good Instructions: Dizziness, Nonvertigo Additional Instructions: Follow-up with your primary care physician in the next day or 2 to discuss your blood pressure medications. Recommend that until then you take about half of your usual blood pressure dose. Return to the emergency department immediately if you feel worse in any way. Continue taking all other medications as prescribed. Referrals: Gio Driver MD [Primary Care Provider] - - Critical Care Critical Care Time: No Attestation: On , the high probability of a clinically significant, sudden or life threatening deterioration of the following system(s) required my full and direct attention, intervention and personal management. The time I documented below is in addition to time spent performing reported procedures but includes the following listed in this critical care notation. Medical Decision Making - Eben Inquiry Pt receiving controlled substance: No Vital Signs: 06/26/21 10:01 Temperature 98.3 F Temperature Source Oral Pulse Rate [Right Radial] 67 Respiratory Rate 15 Blood Pressure [Right Arm] 121/60 Blood Pressure Mean [Right Arm] 80 Blood Pressure Source [Right Arm] Automatic Cuff Blood Pressure Position [Right Arm] Sitting 02 Sat by Pulse Oximetry 94 L Oxygen Delivery Method Room Air - Lab Data Lab results reviewed: Yes: I reviewed the patient's lab results. Lab Results 06/26/21 10:11: WBC 5.4, RBC 4.17 L, Hgb 11.0 L, Hct 34.4 L, MCV 82.5, MCH 26.3 L, MCHC 31.9, RDW 15.1, Plt Count 330, MPV 8.8, Neut % (Auto) 65.7, Lymph % (Auto) 17.8, [place] % (Auto) 6.5, Eos % (Auto) 7.7, Baso % (Auto) 2.3 H, Neut # (Auto) 3.6, Lymph # (Auto) 1.0, [place] # (Auto) 0.4, Eos # (Auto) 0.4, Baso # (Auto) 0.1 06/26/21 10:11: Sodium 138, Potassium 4.7, Chloride 103, Carbon Dioxide 27, BUN 36 H, Creatinine 1.30 H, Estimated Creat Clear 50, Estimated GFR 42 L, Est GFR ( Amer) 51 L, Glucose 246 H, Calcium 10.1, Total Bilirubin 0.4, AST 27, ALT 16, Alkaline Phosphatase 135 H, Total Protein 7.5, Albumin 4.2, Globulin 3.3 H, Albumin/Globulin Ratio 1.3 Result diagrams: 06/26/21 10:11 06/26/21 10:11 Orders (Tests/Meds): ED MEDICATIONS Generic Name Dose Route Start Last Admin Trade Name Freq PRN Reason Stop Dose Admin Sodium Chloride 1,000 mls @ 999 mls/hr 06/26/21 10:15 06/26/21 10:17 Sod Chlor 0.9% 1000ml Bag IV 06/26/21 11:15 999 mls/hr .Q1H1M EUGENIA Administration ORDERS Category Date Time Status Comprehensive Metabolic Panel Stat Lab 06/26/21 10:11 Results - Reevaluation(s) Time: 10:44 Reevaluation #1: The patient feels better after some intravenous fluids. Her blood pressure is in the 130 is now. Her blood work shows may be some mild renal insufficiency/dehydration. Otherwise is unremarkable. Medical Decision Narrative: Patient's work-up in the emergency department not reveal any life-threatening or dangerous causes for the patient's symptoms. I suspect that the patient is feeling dizzy and lightheaded due to low blood pressure. I will advise the patient to reduce the dosing of her blood pressure medications. And to follow-up with her primary care physician. I feel that the patient can be safely discharged home with close follow-up. She has mild anemia but not sufficient to be causing her symptoms. Her renal functions are somewhat elevated consistent with mild dehydration and or mild renal insufficiency. Again, nothing that needs to be addressed emergently in the emergency department. Dizzy HPI - General Chief Complaint: Dizziness Stated Complaint: low bp Time Seen by Provider: 06/26/21 10:05 Mode of Arrival: Wheelchair - History of Present Illness HPI Narrative:
[2021-06-26 10:20] LABS: Basophils # 0.1 K/mm3 (0-0.2); Basophils % 2.3 % (0.1-2.0); Eosinophils # 0.4 K/mm3 (0.0-0.4); Eosinophils % 7.7 % (0.1-12.0); Hematocrit 34.4 % (37.0-47.0); Lymphocytes % 17.8 % (10-50); Mean Corpuscular HGB Conc 31.9 g/dL (31.8-35.4); Mean Corpuscular Hemoglobin 26.3 pg (27.0-31.2); Mean Corpuscular Volume 82.5 fl (81-99); Mean Platelet Volume 8.8 fl (7.4-10.4); Monocytes # 0.4 K/mm3 (0.1-1.0); Monocytes % 6.5 % (1.7-9.3); Neutrophils # 3.6 K/mm3 (1.8-7.8); Neutrophils % 65.7 % (37.0-80.0); Platelet Count 330 K/mm3 (142-424); Red Blood Count 4.17 M/mm3 (4.20-5.40); Red Cell Distribution Width 15.1 % (11.5-17.5); White Blood Count 5.4 K/mm3 (4.8-10.8)
[2021-06-26 10:30] VITALS: BP 135/57; PULSE 71; RESP 16; O2SAT 96
[2021-06-26 10:32] LABS: Chloride 103 mmol/L (98-107); Sodium 138 mmol/L (136-145)
[2021-06-26 10:33] LABS: Potassium 4.7 mmoL/L (3.5-5.1)
[2021-06-26 10:35] LABS: Alanine Aminotransferase 16 U/L (12-78); Albumin Level 4.2 g/dl (3.5-5.0); Albumin/Globulin Ratio 1.3 (1.1-1.8); Alkaline Phosphatase 135 U/L (38-126); Aspartate Amino Transferase 27 U/L (14-36); Bilirubin,Total 0.4 mg/dl (0.2-1.3); Blood Urea Nitrogen 36 mg/dl (7-17); Calcium 10.1 mg/dl (8.4-10.2); Creatinine Clearance Estimated 50 mL/min (50-200); Estimated Glomerular Filt Rate 42 ml/min (>60); GFR (African American) 51 ML/MIN (>60); Globulin 3.3 g/dL (1.3-3.2); Glucose 246 mg/dl (74-100); Total Protein,Serum 7.5 g/dl (6.3-8.2)
[2021-06-26 10:58] VITALS: BP 135/57; PULSE 78; RESP 16; TEMP 36.7; O2SAT 98
[2021-06-26 11:01] VITALS: BP 145/65; PULSE 75; RESP 15; O2SAT 97
[2021-06-26 12:07] LABS: Anion Gap 12.7 mEq/L (5-15); Carbon Dioxide 27 mmol/L (22.0-30.0)
== END 2021-06-26 11:05 | disposition home or self-care (01) ==
PROVIDERS: Emergency Provider Emergency Medicine; PCP Family Medicine
DX: I95.89 Other hypotension (principal); E86.1 Hypovolemia; E11.9 Type 2 diabetes mellitus without complications; F17.210 Nicotine dependence, cigarettes, uncomplicated; E78.5 Hyperlipidemia, unspecified; I10 Essential (primary) hypertension; Z89.419 Acquired absence of unspecified great toe; Z79.899 Other long term (current) drug therapy
CPT/HCPCS: 73630; 80053; 85025; 87070; 87077; 87186; 87205; 96360; 99284

== ENCOUNTER → 2021-06-26 10:05 | Outpatient (CLI) | payer MEDICARE, SELFPAY | PROVIDERS: PCP Nurse Practitioner Family; Visit Provider Nurse Practitioner Family | DX: M79.671 Pain in right foot (principal) ==

== ENCOUNTER → 2021-06-26 11:12 | Outpatient (CLI) | payer MEDICARE, SELFPAY ==
--- NOTE | 2021-06-26 11:17 | XR_ITS ---
FINAL REPORT CLINICAL HISTORY: left foot post LTMA COMPARISON: April 03, 2021 FINDINGS: 3 views of the left foot were obtained. The surgical drain has been removed. There has been transmetatarsal amputation. There are moderate degenerative changes. Calcaneal spurs are present. IMPRESSION: Prior transmetatarsal amputation. Moderate degenerative change. Reviewed, Interpreted and Dictated by Brien Jacobs III, MD Transcribed by Tristan Tee Authenticated by Brien Jacobs III, MD on 06/26/2021 12:36:40 PM [facility]
== END ==
PROVIDERS: PCP Family Medicine; Visit Provider Nurse Practitioner Family
DX: Z89.432 Acquired absence of left foot (principal); Z98.890 Other specified postprocedural states
CPT/HCPCS: 73630; 87070; 87205

== ENCOUNTER → 2021-08-07 07:56 | Outpatient (CLI) | payer MEDICARE, SELFPAY ==
--- NOTE | 2021-08-07 07:59 | CT_ITS ---
FINAL REPORT CLINICAL HISTORY: HX OF NICOTINE DEPENDENCE, CURRENT SMOKER, 30 years smoking, 1 pack per day FINDINGS: CT CHEST SCREENING CTDI vol (mGy): 2.90 DLP (mGy-cm): 103.42 Axial images were obtained from the lung apex to the mid abdomen by computed tomography. Low-dose protocol was utilized. FINDINGS: CHEST: There is no axillary adenopathy. There is no hilar or mediastinal adenopathy. The heart is proper size. There are severe left corner artery calcifications. There is no pericardial or pleural effusion. There is a 10 mm nodule in the right thyroid lobe. There is left adrenal gland enlargement measuring up to 30 mm, nonspecific. Lung window images demonstrate there is mild scarring and mild emphysematous changes. There is a 2 mm right lower lobe nodule seen on image 44, a 2 mm right lower lobe nodule seen on image 53, a 2 mm nodule right lower lobe on image 59, and a 4 mm right lower lobe nodule on image 38. Several other small, less than 5 mm, pulmonary nodules are seen. IMPRESSION: Lung RADS category 2S*. Multiple pulmonary nodules as above. Recommend 12 month follow-up low-dose chest CT. S - Severe coronary artery calcifications, nonspecific left adrenal mass, and right thyroid nodule. Reviewed, Interpreted and Dictated by Brien Jacobs III, MD Transcribed by Margaret Mack Authenticated and [facility]
== END ==
PROVIDERS: PCP Family Medicine; Visit Provider Family Medicine
DX: Z87.891 Personal history of nicotine dependence (principal); Z12.2 Encounter for screening for malignant neoplasm of respiratory organs
CPT/HCPCS: 71271

== ENCOUNTER → 2021-08-10 16:46 | Outpatient (CLI) | payer MEDICARE, SELFPAY | PROVIDERS: Visit Provider Podiatrist | DX: E11.621 Type 2 diabetes mellitus with foot ulcer (principal); L97.529 Non-pressure chronic ulcer of other part of left foot with unspecified severity; S91.302A Unspecified open wound, left foot, initial encounter; B95.8 Unspecified staphylococcus as the cause of diseases classified elsewhere | CPT/HCPCS: 87070; 87077; 87186; 87205 ==

== ENCOUNTER → 2021-08-26 13:23 | Outpatient (CLI) | payer MEDICARE, SELFPAY | PROVIDERS: PCP Family Medicine; Visit Provider Ophthalmology | DX: Z01.812 Encounter for preprocedural laboratory examination (principal); Z20.822 Contact with and (suspected) exposure to COVID-19 | CPT/HCPCS: C9803; U0003; U0005 ==

== ENCOUNTER 2021-08-29 07:56 | Day surgery (SDC) | payer MEDICARE, SELFPAY ==
[2021-08-29] VITALS (7 sets, daily range): BP systolic 124–187; BP diastolic 65–78; PULSE 65–71; RESP 18; TEMP 36.3; O2SAT 93–98; BMI 24.3
== END 2021-08-29 09:57 | disposition home or self-care (01) ==
LOC: OR 07:58
PROVIDERS: PCP Family Medicine; Visit Provider Ophthalmology
DX: H26.9 Unspecified cataract (principal); E11.9 Type 2 diabetes mellitus without complications; M19.90 Unspecified osteoarthritis, unspecified site; F41.9 Anxiety disorder, unspecified; Z72.0 Tobacco use
CPT/HCPCS: 66984; V2632

== ENCOUNTER → 2021-10-07 12:44 | Outpatient (CLI) | payer MEDICARE, SELFPAY | PROVIDERS: PCP Family Medicine; Visit Provider Ophthalmology | DX: Z01.812 Encounter for preprocedural laboratory examination (principal); Z20.822 Contact with and (suspected) exposure to COVID-19 | CPT/HCPCS: C9803; U0003; U0005 ==

== ENCOUNTER → 2021-11-11 11:41 | Outpatient (CLI) | payer MEDICARE, SELFPAY | PROVIDERS: PCP Family Medicine; Visit Provider Ophthalmology | DX: Z01.812 Encounter for preprocedural laboratory examination (principal); Z20.822 Contact with and (suspected) exposure to COVID-19; H25.012 Cortical age-related cataract, left eye | CPT/HCPCS: C9803; U0003; U0005 ==

== ENCOUNTER 2021-11-14 08:54 | Day surgery (SDC) | payer MEDICARE, SELFPAY ==
[2021-10-04 10:30] VITALS: BMI 23.5
[2021-11-10 16:06] VITALS: BMI 23.5
[2021-11-14] VITALS (7 sets, daily range): BP systolic 133–169; BP diastolic 59–74; PULSE 60–64; RESP 16–19; TEMP 36.1–36.4; O2SAT 94–100
[2021-11-14 09:30] LABS: POC Glucose,Bedside 92 (70-110)
== END 2021-11-14 11:00 | disposition home or self-care (01) ==
LOC: OR 08:55
PROVIDERS: PCP Family Medicine; Visit Provider Ophthalmology
DX: H26.9 Unspecified cataract (principal); F17.210 Nicotine dependence, cigarettes, uncomplicated; Z79.899 Other long term (current) drug therapy; E11.9 Type 2 diabetes mellitus without complications
CPT/HCPCS: 66984; 82962; V2632

== ENCOUNTER 2021-11-27 06:43 | Day surgery (SDC) | payer MEDICARE, SELFPAY ==
[2021-11-27 07:20] VITALS: BP 152/64; PULSE 72; RESP 18; TEMP 36.3; O2SAT 93; BMI 25.8
[2021-11-27 07:34] LABS: POC Glucose,Bedside 97 (70-110)
--- NOTE | 2021-11-27 07:43 | P.PN_ITS ---
[facility] Medical History Deviated nasal septum Hearing Loss History of amputation of toe Hyperlipidemia Hypertension Left serous otitis media Tinnitus of left ear Type 2 diabetes mellitus Surgical History History of cataract surgery Family History Other Diabetes Family history of hyperlipidemia Family history of hypertension Social History Smoking Status: Current every day smoker tobacco type: cigarettes packs per day: 1 alcohol intake: never substance use type: denies use current occupational status: retired Travel in the last 8 weeks: None household members: family housing: house current occupational exposures/hazards: No caffeine: Yes [facility] Anesthesia Checklist Patient Identification Patient Identification: Verbal (Name & ) Structural Data Admitted From: Home Planned Operative Procedure/s: l ear tube,nasopharyngoscopy Consent for Planned Operative Procedure(s) Verified: Yes NPO Status Verified Time NPO: 00:00 Additional verifications Anesthesia Reactions: No Hx Blood Transfusions: No Blood Transfusion Reaction: No Airway Assessment C-Spine Mobility Assessed: Yes TMJ Mobility Assessed: Yes Dentition: Good Dentition Neurological Assessment Level of Consciousness: Awake, Alert and Appropriate Anesthesia Plan Anesthesia Risk discussed: Yes Anesthesia Plan: Verified ASA Class: II Anesthesia Type: General
[2021-11-27 08:52] VITALS: BP 153/73; PULSE 79; RESP 18; TEMP 36.5; O2SAT 93
--- NOTE | 2021-11-27 08:53 | EXP.OP.NOTE ---
Date of procedure: 11/27/21 Pre-op Diagnosis:: Chronic serous otitis media Nasopharyngeal mass Post-op Diagnosis:: Left serous otitis media Nasopharyngeal mass Procedure performed:: 1.Left myringotomy with tube placement 2. Nasopharyngeal biopsy 3. Nasopharyngoscopy Surgeon:: Gato Sherwood III, MD [employer] TECHNICIAN:: Floyd Hartman Anesthesia: MAC Estimated blood loss (mL): 25 Operative findings:: Left serous otitis media, left nasopharyngeal lymphoid tissue Operative note:: The patient was brought to the operating room and placed under inhaled anesthesia with IV sedation. Topical Afrin was applied to the nasal cavity bilaterally. The left external auditory canal was cleaned and inspected under the microscope. A radial incision was made inferiorly. Serous effusion was aspirated from the middle ear space. A Rueter bobbin tube was placed through the incision. Antibiotic and steroid drops were placed in the left external auditory canal. At this point, the 0 degree nasal endoscope was used to inspect the nasal cavity on the left. There appeared to be some either residual adenoid tissue near the eustachian tube opening or possibly a mass. I elected to proceed with a biopsy done endoscopically. 2 biopsy specimens were obtained and sent for pathologic evaluation. There was some oozing noted which was controlled with suction cautery used under direct vision in the nasopharynx. The patient was observed and then transferred to the recovery unit. Condition: stable Disposition: PACU Specimens:: Nasopharyngeal biopsy Complications:: None
[2021-11-27 09:02] VITALS: BP 176/71; PULSE 79; RESP 18; O2SAT 92
[2021-11-27 09:30] VITALS: BP 177/67; PULSE 77; RESP 18; O2SAT 93
== END 2021-11-27 09:34 | disposition home or self-care (01) ==
PROVIDERS: PCP Family Medicine; Visit Provider Otolaryngology
DX: H65.22 Chronic serous otitis media, left ear (principal); J34.89 Other specified disorders of nose and nasal sinuses; Z72.0 Tobacco use; J34.2 Deviated nasal septum; Z79.899 Other long term (current) drug therapy; E11.9 Type 2 diabetes mellitus without complications
CPT/HCPCS: 31237; 69436; 82962; 88305; J2405

== ENCOUNTER 2021-12-29 08:28 | Inpatient (IN) | payer MEDICARE, SELFPAY ==
[2021-12-29] VITALS (17 sets, daily range): BP systolic 75–173; BP diastolic 45–105; PULSE 71–111; RESP 18–24; TEMP 36.8–37; O2SAT 69–94; BMI 25.8; BMI 24.7; BMI 25.7
--- NOTE | 2021-12-29 08:58 | HMH.EDGENADL ---
Discharge Plan Disposition Patient Disposition: Home, Self-Care Condition: Fair Chief Complaint: Shortness of Breath/Dyspnea Prescriptions Prescriptions: No Action rosuvastatin 10 mg tablet 10 mg PO DAILY metformin 500 mg tablet extended release 24 hr 500 mg PO BID carvedilol 6.25 mg tablet 6.25 mg PO BID lisinopril 40 mg tablet 40 mg PO DAILY aspirin 81 MG tablet,delayed release (DR/EC) 81 mg PO DAILY amlodipine 10 MG tablet 10 mg PO DAILY insulin glargine 100 UNIT/ML insulin pen 20 unit SQ HS Referrals Follow up/Referrals: Gio Driver MD [Primary Care Provider] - See instructions Clinical Impressions Clinical Impression: Acute respiratory failure with hypoxia, COPD exacerbation Discharge ED Provider: Daniel Oconnor General Adult HPI General Chief complaint: Shortness of Breath/Dyspnea Stated complaint: sob, cough Time Seen by Provider: 12/29/21 08:28 History of Present Illness HPI narrative: Patient is a 56-year-old female with past medical history of CAD, diabetes, hypertension, hyperlipidemia, smoking history who presents with concern for shortness of breath. She says that her grandkids have recently gotten influenza and she started to feel sick over the last couple days. She is gotten progressively more short of breath over the last 24 hours. She says that she has a clear/white sputum production but this is normal for her. Denies any fever or chills. She says that she feels like she cannot get a deep breath. She does feel better sitting up and feels more short of breath if she lies flat. Denies any chest pain. Denies any abdominal pain. Related Data Home Medications Medication Instructions Recorded Confirmed carvedilol 6.25 mg tablet 6.25 mg PO BID High blood pressure 05/29/21 12/29/21 rosuvastatin 10 mg tablet 10 mg PO DAILY Cholesterol 08/24/21 12/29/21 amlodipine 10 mg tablet 10 mg PO DAILY High blood pressure 08/29/21 12/29/21 aspirin 81 mg tablet,delayed 81 mg PO DAILY heart health 08/29/21 12/29/21 release insulin glargine 100 unit/mL (3 20 unit SQ HS Diabetes 08/29/21 12/29/21 mL) subcutaneous pen lisinopril 40 mg tablet 40 mg PO DAILY bp 09/11/21 12/29/21 metformin 500 mg tablet,extended 500 mg PO BID Diabetes 10/30/21 12/29/21 release 24 hr Allergies Allergy/AdvReac Type Severity Reaction Status Date / Time daptomycin Allergy Severe causes Verified 11/27/21 07:17 extreme muscle spasms vancomycin Allergy Verified 11/27/21 07:17 [facility] Medical History (Updated 12/29/21 @ 12:05 by Daniel Oconnor MD) Deviated nasal septum Hearing Loss History of amputation of toe Hyperlipidemia Hypertension Left serous otitis media Tinnitus of left ear Type 2 diabetes mellitus Surgical History History of cataract surgery Family History Other Diabetes Family history of hyperlipidemia Family history of hypertension Social History Smoking Status: Current every day smoker tobacco type: cigarettes packs per day: 1 alcohol intake: never substance use type: denies use current occupational status: retired Travel in the last 8 weeks: None household members: family housing: house current occupational exposures/hazards: No caffeine: Yes ROS Obtained: Yes All systems reviewed & no additional complaints except as documented A 14 point review of system was obtained and otherwise negative except per HPI Physical Exam General General appearance: alert and in distress Head Head exam: atraumatic, normocephalic and normal inspection Eye Eye exam: Present normal appearance, PERRL and EOMI ENT ENT exam: Present normal exam, normal oropharynx, mucous membranes moist, TM's normal bilaterally and normal external ear exam Neck
[2021-12-29 09:01] LABS: Basophils # 0.2 K/mm3 (0-0.2); Eosinophils # 0.1 K/mm3 (0.0-0.4); Eosinophils % 2.3 % (0.1-12.0); Hematocrit 36.6 % (37.0-47.0); Hemoglobin 11.7 g/dL (12.2-16.2); Lymphocytes # 0.9 K/mm3 (0.7-4.5); Lymphocytes % 17.2 % (10-50); Mean Corpuscular HGB Conc 31.9 g/dL (31.8-35.4); Mean Corpuscular Hemoglobin 26.7 pg (27.0-31.2); Mean Corpuscular Volume 83.9 fl (81-99); Mean Platelet Volume 7.8 fl (7.4-10.4); Monocytes # 0.5 K/mm3 (0.1-1.0); Neutrophils # 3.4 K/mm3 (1.8-7.8); Neutrophils % 67.5 % (37.0-80.0); Platelet Count 223 K/mm3 (142-424); Red Blood Count 4.37 M/mm3 (4.20-5.40); Red Cell Distribution Width 14.9 % (11.5-17.5)
[2021-12-29 09:05] LABS: Coronavirus 19, PCR Not Detected (NotDetected); Influenza A, PCR Not Detected (NotDetected); Influenza B, PCR Not Detected (NotDetected)
[2021-12-29 09:07] LABS: Alanine Aminotransferase 16 U/L (12-78); Albumin Level 4.6 g/dl (3.5-5.0); Albumin/Globulin Ratio 1.5 (1.1-1.8); Alkaline Phosphatase 178 U/L (38-126); Anion Gap 16.4 mEq/L (5-15); Aspartate Amino Transferase 35 U/L (14-36); Bilirubin,Total 0.2 mg/dl (0.2-1.3); Blood Urea Nitrogen 30 mg/dl (7-17); Calcium 10.4 mg/dl (8.4-10.2); Carbon Dioxide 27 mmol/L (22.0-30.0); Chloride 100 mmol/L (98-107); Creatinine Clearance Estimated 47 mL/min (50-200); Estimated Glomerular Filt Rate 36 ml/min (>60); GFR (African American) 43 ML/MIN (>60); Globulin 3.1 g/dL (1.3-3.2); Glucose 156 mg/dl (74-100); Magnesium 1.6 mg/dl (1.6-2.3); Potassium 4.4 mmoL/L (3.5-5.1); Sodium 139 mmol/L (136-145); Total Protein,Serum 7.7 g/dl (6.3-8.2)
[2021-12-29 09:11] LABS: VBG Base Excess -0.8 mmol/L (-2.4-2.3); VBG HCO3 25.5 mmol/L (23-30); VBG PO2 66.7 mmol/L (28-40); VBG Total CO2 27.1 mmol/L (23-27)
[2021-12-29 09:15] LABS: VBG PCO2 52.6 mmol/L (35-51)
[2021-12-29 09:19] LABS: NT Pro Brain Natriuretic Pep. 250 pg/mL (0-125)
--- NOTE | 2021-12-29 09:47 | XR_ITS ---
FINAL REPORT CLINICAL HISTORY: concern for pneumonia COMPARISON: April 2021 FINDINGS: The heart size is normal. The mediastinum is within normal limits. There is no acute cardiopulmonary process. There is no pleural effusion. There is no pneumothorax. The bony thorax is intact. IMPRESSION: No acute cardiopulmonary process. Reviewed, Interpreted and Dictated by Michael Francois MD Transcribed by Tristan Tee Authenticated and [facility]
--- NOTE | 2021-12-29 09:49 | PC.NURSE ---
checked on pt at this time, pt given ice water per her request, okayed per ER MD. Family was asking what are we waiting on . Came out spoke with ER MD, states waiting to see if pt improves after Magnesium infusion. Pt current SaO2 93% on 4L per NC, pt not on home O2. Pt O2 decreased to 3L per NC at this time, will continue to monitor.
--- NOTE | 2021-12-29 09:51 | PC.NURSE ---
RT notified of neb treatment orders Rad at BS for portable xray
--- NOTE | 2021-12-29 11:33 | PC.NURSE ---
dr aayush schulz for admission
--- NOTE | 2021-12-29 12:01 | PC.NURSE ---
notified care management of admission spoke with yael
--- NOTE | 2021-12-29 12:07 | PC.NURSE ---
1205 bed requested for admission, room 200. all staff notified
--- NOTE | 2021-12-29 12:30 | PC.NURSE ---
pt eating lunch
--- NOTE | 2021-12-29 12:35 | PC.NURSE ---
Attempted to give report, nurse is unavailable at this time
--- NOTE | 2021-12-29 12:59 | PC.NURSE ---
report called to Josselin FELIZ
--- NOTE | 2021-12-29 13:05 | PC.NURSE ---
pt ambulated to the bathroom and back with no assistance and states he doesn't feel dizzy.
--- NOTE | 2021-12-29 13:25 | EXP.ACUTE.PN ---
Subjective *Date: 12/29/21 *Time: 13:25 Interval history: Patient came to ER today at [facility] due to shortness of breath. She has been exposed to the flu. She has a history of tobacco use. Medical Exam Vital signs and Labs for Last 24 Hours: Vital Signs Temp Pulse Pulse Resp BP BP Pulse Ox 12/29/21 13:01 76 20 102/45 L 92 L 12/29/21 12:31 82 173/85 H 91 L 12/29/21 12:00 82 22 147/73 H 91 L 12/29/21 11:30 78 20 147/72 H 90 L 12/29/21 11:00 77 133/63 90 L 12/29/21 10:58 71 128/62 91 L 12/29/21 10:30 78 75/53 L 91 L 12/29/21 10:00 79 109/57 L 93 L 12/29/21 09:30 87 93/55 L 91 L 12/29/21 10:00 88 12/29/21 10:00 81 12/29/21 09:30 79 22 93/55 L 92 L 12/29/21 09:00 111 H 22 155/105 H 92 L 12/29/21 08:30 91 L 12/29/21 08:29 98.3 F 95 H 24 160/79 H 69 L Intake and Output 12/28/21 12/29/21 12/29/21 23:59 07:59 15:59 Other: Weight 160 lb Patient Weight 12/29/21 23:59 Weight 160 lb Laboratory Results - last 24 hr 12/29/21 08:37: VBG pH 7.30 L, VBG pCO2 52.6 H, VBG pO2 66.7 H, VBG HCO3 25.5, VBG Total CO2 27.1 H, VBG O2 Saturation 92.0 H, VBG Base Excess -0.8 12/29/21 08:40: WBC 5.0, RBC 4.37, Hgb 11.7 L, Hct 36.6 L, MCV 83.9, MCH 26.7 L, MCHC 31.9, RDW 14.9, Plt Count 223, MPV 7.8, Neut % (Auto) 67.5, Lymph % (Auto) 17.2, [place] % (Auto) 10.0 H, Eos % (Auto) 2.3, Baso % (Auto) 3.0 H, Neut # (Auto) 3.4, Lymph # (Auto) 0.9, [place] # (Auto) 0.5, Eos # (Auto) 0.1, Baso # (Auto) 0.2 12/29/21 08:40: Sodium 139, Potassium 4.4, Chloride 100, Carbon Dioxide 27, Anion Gap 16.4 H, BUN 30 H, Creatinine 1.50 H, Estimated Creat Clear 47, Estimated GFR 36 L, Est GFR ( Amer) 43 L, Glucose 156 H, Calcium 10.4 H, Magnesium 1.6, Total Bilirubin 0.2, AST 35, ALT 16, Alkaline Phosphatase 178 H, C-Reactive Protein 6.0 H, NT-Pro-B Natriuret Pep 250 H, Total Protein 7.7, Albumin 4.6, Globulin 3.1, Albumin/Globulin Ratio 1.5, Procalcitonin 0.180 12/29/21 08:40: SARS-CoV-2 (PCR) Not detected, Influenza A Untype (PCR) Not detected, Influenza Type B (PCR) Not detected I & O for Labs for Last 24 Hours: Intake & Output 12/26/21 12/27/21 12/28/21 12/29/21 23:59 23:59 23:59 23:59 Weight 160 lb Constitutional: Present no acute distress Respiratory: Present wheezes Cardiac: Present Reg Rate and Rhythm Extremities: Absent edema Assessment and Plan *Assessment and plan (1) Acute respiratory failure with hypoxia: Status: Acute Category: Medical Code(s): J96.01 - Acute respiratory failure with hypoxia (2) Tobacco abuse: Status: Acute Category: Medical Code(s): Z72.0 - Tobacco use (3) Type 2 diabetes mellitus: Status: Chronic Qualifiers: Diabetes mellitus assisted insulin use: with exterminator termite use Diabetes mellitus complication detail: with foot ulcer Qualified Code(s): E11.621 - Type 2 diabetes mellitus with foot ulcer; L97.509 - Non-pressure chronic ulcer of other part of unspecified foot with unspecified severity; Z79.4 - manager intermediate (current) use of insulin Category: Medical Code(s): E11.9 - Type 2 diabetes mellitus without complications (4) Hypertension: Status: Chronic Category: Medical Code(s): I10 - Essential (primary) hypertension Plan Patient admitted for IV antibiotics, steroids and neb treatments. H&P to follow.
--- NOTE | 2021-12-29 13:34 | PC.NURSE ---
patient arrived by wheelchair from ED
--- NOTE | 2021-12-29 17:12 | EXP.HP ---
History of Present Illness *Admission Date: 12/29/21 *Reason for visit:: SOA *History of present illness: Patient is a 56-year-old female with past medical history of CAD, diabetes, hypertension, hyperlipidemia, smoking history who presents with concern for shortness of breath.? She says that her grandkids have recently gotten influenza and she started to feel sick over the last couple days.? She is gotten progressively more short of breath over the last 24 hours.? She says that she has a clear/white sputum production but this is normal for her.? Denies any fever or chills.? She says that she feels like she cannot get a deep breath.? She does feel better sitting up and feels more short of breath if she lies flat.? Denies any chest pain.? Denies any abdominal pain. (above as per ER physician) Further to above, the patient states she began feeling sick on Saturday, started coughing on Saturday, and began getting short of breath on . Her grandkids have had flu but her daughter has had bronchitis and not the flu. She thinks she may have had a low-grade fever and she has been achy the past few days. Oxygen saturation was 69% when she arrived in the emergency room and it has now improved into the 90s on 3 L of oxygen. [facility] Medical History (Updated 12/29/21 @ 17:17 by CLARK Tompkins) Deviated nasal septum Hearing Loss History of amputation of toe Hyperlipidemia Hypertension Left serous otitis media PAD (peripheral artery disease) Tinnitus of left ear Type 2 diabetes mellitus Surgical History (Updated 12/29/21 @ 17:17 by CLARK Tompkins) History of cataract surgery Status post transmetatarsal amputation of left foot Family History Diabetes Family history of hypertension Family history of hyperlipidemia Social History Smoking Status: Current every day smoker tobacco type: cigarettes packs per day: 1 alcohol intake: never substance use type: denies use current occupational status: retired Travel in the last 8 weeks: None household members: family housing: house current occupational exposures/hazards: No caffeine: Yes Review of Systems Constitutional Constitutional: Reports fatigue, Reports fever(s), Denies headache(s) and Reports weakness Eyes Eyes: Denies blurry vision and Denies diplopia ENT Ears, Nose, Mouth, and Throat: Denies headache(s), Reports nasal congestion, Reports sore throat and Denies vertigo *Cardiovascular Cardiovascular: Denies chest pain, Reports dyspnea and Denies leg edema *Respiratory Respiratory: Reports cough and Reports dyspnea *Gastrointestinal Gastrointestinal: Denies abdominal pain, Denies loose stools, Denies nausea and Denies vomiting *Genitourinary Genitourinary: Denies dysuria *Musculoskeletal Musculoskeletal: Denies arthralgias and Reports myalgias *Neurologic Neurologic: Denies headache(s), Denies vertigo and Reports weakness Endocrine Endocrine: Reports fatigue Meds Home Medications and Allergies Home Medications Medication Instructions Recorded Confirmed Type carvedilol 6.25 mg tablet 6.25 mg PO BID High blood pressure 05/29/21 12/29/21 History rosuvastatin 10 mg tablet 10 mg PO HS Cholesterol 08/24/21 12/29/21 History amlodipine 10 mg tablet 10 mg PO DAILY High blood pressure 08/29/21 12/29/21 History aspirin 81 mg tablet,delayed 81 mg PO DAILY heart health 08/29/21 12/29/21 History release insulin glargine 100 unit/mL (3 20 unit SQ HS Diabetes 08/29/21 12/29/21 History mL) subcutaneous pen lisinopril 40 mg tablet 40 mg PO DAILY High blood pressure 09/11/21 12/29/21 History metformin 500 mg tablet,extended 1,000 mg PO BID Diabetes 10/30/21 12/29/21 History release 24 hr New Prescriptions to Start Prescriptions: Allergies Allergy/AdvReac Type Severity Reaction Status Date / Time daptomycin Allergy Severe causes Verified 11/27/21
[2021-12-29 17:43] LABS: Adenovirus,PCR Not Detected (NotDetected); Bordetella Pertussis Not Detected (NotDetected); Chlamydophila Pneumoniae, PCR Not Detected (NotDetected); Coronavirus 19, PCR Not Detected (NotDetected); Coronavirus 229E Not Detected (NotDetected); Coronavirus NL63 Not Detected (NotDetected); Coronavirus OC43 Not Detected (NotDetected); Coronovirus HKU1,PCR Not Detected (NotDetected); Human Metapneumovirus Not Detected (NotDetected); Influenza A, PCR Not Detected (NotDetected); Influenza AH1, 2009 Not Detected (NotDetected); Influenza AH1, PCR Not Detected (NotDetected); Influenza AH3,PCR Not Detected (NotDetected); Influenza B, PCR Not Detected (NotDetected); Mycoplasma Pneumoniae, PCR Not Detected (NotDetected); Parainfluenza 1, PCR Not Detected (NotDetected); Parainfluenza 2, PCR Not Detected (NotDetected); Parainfluenza 3, PCR Not Detected (NotDetected); Parainfluenza 4, PCR Not Detected (NotDetected); Rhinovirus/Enterovirus Not Detected (NotDetected)
[2021-12-29 20:19] LABS: POC Glucose,Bedside 359 (70-110)
--- NOTE | 2021-12-29 23:18 | PC.NURSE ---
paged regarding pt having trouble breathing with low O2 sats, waiting call back
--- NOTE | 2021-12-29 23:34 | PC.NURSE ---
spoke with Dr martínez science and operations officer for Dr looney about pt having trouble breathing. ordered duonebs q2h prn
[2021-12-30] VITALS (15 sets, daily range): BP systolic 109–160; BP diastolic 55–99; PULSE 82–96; RESP 10–25; TEMP 36.4–36.7; O2SAT 84–100; BMI 25.0
--- NOTE | 2021-12-30 03:55 | PC.NURSE ---
pt A&OX4. ambulates to and from bathroom with assistance. pt has been c/o SOA and O2 sats have been dropping to low 80s on 3-4L NC. RT has given breathing treatments and put venturi mask on. O2 sats have been >90% on venturi mask. no other complaints at this time. CB in reach.
[2021-12-30 05:32] LABS: POC Glucose,Bedside 122 (70-110)
[2021-12-30 08:41] LABS: ABG Base Excess -1.2 mmol/L (-2.4-2.3); ABG Oxygen Saturation 91 % (90-100); ABG PH 7.31 mmol/L (7.35-7.45); ABG PO2 62.5 mmhg (80-100); ABG TCO2 26.6 mmhg (23-27)
[2021-12-30 08:43] LABS: Allen's Test Acceptable; Source Right Radial
[2021-12-30 08:44] LABS: ABG PCO2 50.7 mmhg (35.0-45.0)
[2021-12-30 09:48] LABS: Respiratory Syncytial Virus Detected (NotDetected)
[2021-12-30 10:16] LABS: Basophils % 0.5 % (0.1-2.0); Eosinophils % 0.6 % (0.1-12.0); Hematocrit 34.7 % (37.0-47.0); Hemoglobin 11.5 g/dL (12.2-16.2); Lymphocytes # 0.3 K/mm3 (0.7-4.5); Lymphocytes % 4.7 % (10-50); Mean Corpuscular Hemoglobin 27.6 pg (27.0-31.2); Mean Corpuscular Volume 83.7 fl (81-99); Mean Platelet Volume 7.7 fl (7.4-10.4); Monocytes # 0.1 K/mm3 (0.1-1.0); Monocytes % 2.1 % (1.7-9.3); Neutrophils # 6.3 K/mm3 (1.8-7.8); Neutrophils % 92.1 % (37.0-80.0); Platelet Count 217 K/mm3 (142-424); Red Blood Count 4.15 M/mm3 (4.20-5.40); Red Cell Distribution Width 14.8 % (11.5-17.5); White Blood Count 6.9 K/mm3 (4.8-10.8)
[2021-12-30 10:22] LABS: MANUAL DIFFERENTIAL MANUAL DIFFERENTIAL (MANUAL DIFF)
--- NOTE | 2021-12-30 10:22 | PC.NURSE ---
THIS MORNING PT'S O2 SATURATION WAS MAINTAINING IN THE LOW 80'S ON 50% VENTI MASK. NOTIFIED RT FOR A PRN DUONEB WHICH DID NOT IMPROVE O2 SATURATION. LUNG SOUNDS DIMINISHED WITH SCATTERED WHEEZES AND RIGHT SIDED CRACKLES (RT BASE). NOTIFIED PHYSICIAN STRIPPING SHOVEL OILER (ABG WAS ORDERED). AFTER ABG RESULTS REPORTED BIPAP WAS ORDERED. WHEN BIPAP MASK WAS APPLIED PT WAS VERY ANXIOUS AND DESATTED TO THE 70'S. VENTI MASK WAS REAPPLIED TO IMPROVE SATURATION. STRIPPING SHOVEL OILER PHYSICIAN ORDERED LASIX 40 MG IV AND ATIVAN 0.5 IV ONE TIME. CATHETER WAS INSERTED. AFTER ATIVAN PT WAS MORE RELAXED HOWEVER SATURATION WAS STILL IN THE 80'S. WITH SOME ENCOURAGEMENT FROM NURSING STAFF PT WAS AGREEABLE TO WEARING THE BIPAP. PT IS RESTING AT THIS TIME ON BIPAP. O2 SATURATION 98%.
[2021-12-30 10:23] LABS: Chloride 100 mmol/L (98-107); Potassium 4.9 mmoL/L (3.5-5.1); Sodium 138 mmol/L (136-145)
--- NOTE | 2021-12-30 10:25 | EXP.ACUTE.PN ---
Subjective *Date: 12/30/21 *Time: 10:25 Interval history: Patient became more hypoxic overnight. BiPAP was ordered. Medical Exam Vital signs and Labs for Last 24 Hours: Vital Signs Temp Pulse Pulse Resp BP BP Pulse Ox 12/30/21 10:06 83 12/30/21 10:06 96 H 12/30/21 10:06 94 L 12/30/21 10:06 12/30/21 08:00 88 L 12/30/21 08:00 97.9 F 94 H 22 130/58 L 86 L 12/30/21 08:02 91 H 12/30/21 08:02 93 H 12/30/21 08:02 84 L 12/30/21 06:15 91 H 12/30/21 06:15 88 12/30/21 06:15 91 L 12/30/21 04:00 98.1 F 83 20 134/99 H 98 12/30/21 02:50 93 L 12/30/21 02:38 90 12/30/21 02:38 86 12/30/21 00:06 85 12/30/21 00:06 88 12/29/21 20:00 98.6 F 85 20 109/70 L 94 L 12/29/21 18:59 85 12/29/21 18:59 85 12/29/21 18:59 88 L 12/29/21 16:00 98.4 F 75 18 125/54 L 92 L 12/29/21 15:34 92 L 12/29/21 13:34 98.3 F 76 20 102/45 L 12/29/21 13:01 76 20 102/45 L 92 L 12/29/21 12:31 82 173/85 H 91 L 12/29/21 12:00 82 22 147/73 H 91 L 12/29/21 11:30 78 20 147/72 H 90 L 12/29/21 11:00 77 133/63 90 L 12/29/21 10:58 71 128/62 91 L 12/29/21 10:30 78 75/53 L 91 L FiO2 12/30/21 10:06 12/30/21 10:06 12/30/21 10:06 70 12/30/21 10:06 70 12/30/21 08:00 12/30/21 08:00 12/30/21 08:02 12/30/21 08:02 12/30/21 08:02 12/30/21 06:15 12/30/21 06:15 12/30/21 06:15 50 12/30/21 04:00 12/30/21 02:50 50 12/30/21 02:38 12/30/21 02:38 12/30/21 00:06 12/30/21 00:06 12/29/21 20:00 12/29/21 18:59 12/29/21 18:59 12/29/21 18:59 12/29/21 16:00 12/29/21 15:34 12/29/21 13:34 12/29/21 13:01 12/29/21 12:31 12/29/21 12:00 12/29/21 11:30 12/29/21 11:00 12/29/21 10:58 12/29/21 10:30 Intake and Output 12/29/21 12/30/21 12/30/21 23:59 07:59 15:59 Intake Total 490 / 490 120 / 120 Output Total 350 / 351 300 / 300 0 / 300 Balance 140 / 139 -300 / -180 120 / -180 Intake: Intake, Oral Amount 240 / 240 120 / 120 Intake, Total IV Amount 250 / 250 Azithromycin 500 mg In 0.9 % 250 / 250 Sodium Chloride 250 ml @ 250 mls/hr IV Q24H [facility] Rx#:[id number] Output: Output, Urine Amount 350 / 351 300 / 300 0 / 300 Other: Number of Unmeasured Voids 1 Number of Bowel Movements 1 Weight 156 lb 1.6 oz Patient Weight 12/30/21 23:59 Weight 156 lb 1.6 oz Laboratory Results - last 24 hr 12/29/21 08:40: Chlamy pneumoniae PCR Not detected, Adenovirus (PCR) Not detected, B. pertussis DNA (PCR) Not detected, Coronavirus OC43 (PCR) Not detected, Coronavirus HKU1 (PCR) Not detected, Coronavirus 229E (PCR) Not detected, SARS-CoV-2 (PCR) Not detected, Coronavirus NL63 (PCR) Not detected, Human Metapneumovir PCR Not detected, Influenza A (H1) PCR Not detected, Influ A (H1N1/09) PCR Not detected, Influenza A (H3) PCR Not detected, Influenza Type A (PCR) Not detected, Influenza Type B (PCR) Not detected, M. pneumoniae (PCR) Not detected, Parainfluenza 1 (PCR) Not detected, Parainfluenza 2 (PCR) Not detected, Parainfluenza 3 (PCR) Not detected, Parainfluenza 4 (PCR) Not detected, RSV (PCR) Detected A, Entero/Rhino (PCR) Not detected 12/29/21 20:11: POC Glucose 359 H* 12/30/21 05:25: POC Glucose 122 H 12/30/21 08:28: Specimen Source Right radial, O2 % 50% ventimask, ABG pH 7.31 L, ABG pCO2 50.7 H, ABG pO2 62.5 L, ABG HCO3 25.0, ABG Total CO2 26.6, ABG O2 Saturation 91, ABG Base Excess -1.2, Rommel Test Acceptable 12/30/21 10:10: WBC 6.9 D, RBC 4.15 L, Hgb 11.5 L, Hct 34.7 L, MCV 83.7, MCH 27.6, MCHC 33.0, RDW 14.8, Plt Count 217, MPV 7.7, Neut % (Auto) 92.1 H, Lymph % (Auto) 4.7 L, [place] % (Auto) 2.1, Eos % (Auto) 0.6, Baso % (Auto) 0.5, Neut # (Auto) 6.3, Lymph # (Auto) 0.3 L, [place] # (Auto) 0.1, Eos # (Auto) 0.0, Baso # (Auto) 0.0 I & O for Labs
[2021-12-30 10:26] LABS: Anion Gap 14.9 mEq/L (5-15); Blood Urea Nitrogen 39 mg/dl (7-17); Carbon Dioxide 28 mmol/L (22.0-30.0); Creatinine Clearance Estimated 53 mL/min (50-200); Estimated Glomerular Filt Rate 42 ml/min (>60); GFR (African American) 51 ML/MIN (>60)
[2021-12-30 10:27] LABS: Calcium 9.7 mg/dl (8.4-10.2); Glucose 280 mg/dl (74-100)
--- NOTE | 2021-12-30 10:29 | CT_ITS ---
PROCEDURE INFORMATION: Exam: CTA Chest With Contrast Exam date and time: 12/30/2021 6:47 PM Age: 56 years old Clinical indication: Dyspnea; Additional info: Hypoxia TECHNIQUE: Imaging protocol: Computed tomographic angiography of the chest with contrast. 3D rendering (Not supervised by radiologist): MIP and/or 3D reconstructed images were created by the technologist. Radiation optimization: All CT scans at this facility use at least one of these dose optimization techniques: automated exposure control; mA and/or kV adjustment per patient size (includes targeted exams where dose is matched to clinical indication); or iterative reconstruction. Contrast material: ISOVUE 370; Contrast volume: 75 ml; Contrast route: INTRAVENOUS (IV); COMPARISON: CR XR CHEST PORTABLE 12/29/2021 10:04 AM FINDINGS: Pulmonary arteries: No pulmonary emboli. Aorta: No aortic aneurysm. No aortic dissection. Thyroid: Hypoattenuating 10 mm right thyroid nodule. No follow-up is recommended per current guidelines. (Reference: [place]) Lungs: Patchy clusters of centrilobular tree-in-bud ground glass nodularity in the bilateral lungs, compatible with viral or atypical pneumonia. No acute airspace consolidation. No appreciable pulmonary edema. Pleural spaces: No pneumothorax. No pleural effusion. Heart: No cardiomegaly. No significant pericardial effusion. Lymph nodes: No enlarged lymph nodes by CT criteria. Intraperitoneal space: No emergent findings or suspicious mass lesions in the visualized upper abdomen. Bones/joints: No acute osseous abnormality. Soft tissues: Unremarkable. IMPRESSION: 1. Patchy clusters of centrilobular tree-in-bud ground glass nodularity in the bilateral lungs, compatible with viral or atypical pneumonia. 2. No evidence of pulmonary embolism. 3. Additional non-acute ancillary findings are detailed above. COMMENTS: Consistent with the [employer]'s Incidental Findings Committee white paper (J Am Kath Radiol 2015): In patients aged 35 years and older with an incidental thyroid nodule equal to or greater than 1.[address], MRI or extrathyroidal US, further evaluation with dedicated thyroid US is recommended for patients with normal life expectancy and without comorbidities. For smaller nodules without suspicious features, no further evaluation or follow up is recommended. REFERENCES: Vero Aquino, et al. (2015). Managing Incidental Thyroid Nodules Detected on Imaging: White Paper of the ACR Incidental Thyroid Findings Committee. Journal of the [employer], 12(2), 143-150.
[2021-12-30 11:41] LABS: POC Glucose,Bedside 255 (70-110)
[2021-12-30 14:22] LABS: Microscopic,Cath URINE MICROSCOPIC (MICROSCOPIC)
[2021-12-30 14:52] LABS: Lymphocytes % 9 % (10-50); Monocytes % 2 % (2-9); Neutrophils % 89 % (42-76); Total Cells Counted 100
[2021-12-30 14:53] LABS: Platelet Estimate Normal; RBC Morphology Normal
[2021-12-30 16:28] LABS: Appearance,Urine/Cath CLEAR (Clear); Bilirubin,Cath Negative (Negative); Blood, Urine/Cath 2+ (Negative); Color,Urine/Cath YELLOW (Yellow); Glucose,Urine/Cath (UA) TRACE (Negative); Ketones,Urine/Cath Negative (Negative); Leukocyte Esterase,Cath Negative (Negative); Nitrate,Cath Negative (Negative); PH,Urine/Cath 5.5 (5.0-8.5); Protein,Urine/Cath 2+ (Negative); Specific Gravity, Urine/Cath >= 1.030 (1.005-1.030); Urobilinogen,Cath 0.2 EU/dl (0.2)
[2021-12-30 16:53] LABS: Bacteria,Urine/Cath 1+ /lpf; WBC,Urine/Cath Occasional #/hpf (0-3)
--- NOTE | 2021-12-30 17:08 | HMH.ITSTN ---
We tried to CT patient however her GFR was low and when we went to get the patient her oxygen level was too low and unstable to do the CT. The nurse said she will call Dr. Nelson and they will call if she is stable enough to do the test.
[2021-12-30 17:10] LABS: POC Glucose,Bedside 206 (70-110)
--- NOTE | 2021-12-30 18:34 | PC.NURSE ---
EARLY THIS AFTERNOON RT ATTEMPTED TO TO REMOVE BIPAP TO SEE IF PT COULD BE TRANSPORTED TO CT. PT DESATTED TO THE 70'S WITH RADIOLOGY AT BEDSIDE ON 50% VENTI. PT WAS PUT BACK ON BIPAP AND THEY STATED PER PROTOCOL PT WOULD NEED TO HAVE IVF'S BEFORE AND AFTER CTA DUE TO PT'S GFR. NOTIFIED PHYSICIAN FINANCIAL SERVICES INTERN(250 ML NS IVF BOLUS WAS ORDERED BEFORE SCAN) PHYSICIAN STATED THEY DID NOT WANT IVF'S AFTER CTA. AT 1745 STAFF PUT PT ON A NON REBREATHER AND PT WAS ABLE TO MAINTAIN O2 SATURATION 93-97%. HOWEVER PT WAS VERY ANXIOUS. NOTIFIED PHYSICIAN FINANCIAL SERVICES INTERN (ATIVAN 0.5 MG IV ONE TIME WAS ORDERED). AFTER ATIVAN PT WAS TRANSPORTED TO CT AND TOLERATED WELL. AFTER ARRIVING BACK TO THE FLOOR RT ATTEMPTED TO PUT PT BACK ON 50% VENTI MASK AND PT DESATTED TO THE LOW 80'S. PT IS NOW BACK ON BIPAP. O2 SATURATION 97%. WILL CONTINUE TO MONITOR.
[2021-12-30 21:01] LABS: POC Glucose,Bedside 204 (70-110)
[2021-12-31] VITALS (10 sets, daily range): BP systolic 111–140; BP diastolic 57–78; PULSE 71–112; RESP 16–33; TEMP 36.6–37.1; O2SAT 93–100; BMI 25.0
--- NOTE | 2021-12-31 04:09 | PC.NURSE ---
PT REMAINS ON BIPAP WITH O2 SATS > 90%. SHE IS A&OX4, WITH CONFUSION AND INAPPROPRIATE BEHAVIOR AT TIMES. REDNESS NOTED TO BUTTOCKS AND DRESSING APPLIED.
--- NOTE | 2021-12-31 06:15 | PC.NURSE ---
pt refusing to wear bipap. pt placed on NRB and maintained o2 sats @ 100% for 5-10 minutes. She was then placed on venti mask 15L 50%.
[2021-12-31 06:20] LABS: POC Glucose,Bedside 172 (70-110)
--- NOTE | 2021-12-31 06:41 | ECG_ITS ---
APPROVED REPORT Exam: Resting ECG HR:98 bpm ECG Measurements Heart Rate 98 AXES WI 149 P 81 QRSd 102 QRS 29 QT 327 T 90 QTc [address] DEPRESSION, CONSIDER SUBENDOCARDIAL INJURY [0.1+ mV ST DEPRESSION] ABNORMAL ECG UNCONFIRMED REPORT Electronically signed by : Cody Mckeon MD 12/31/2021 08:59:32
--- NOTE | 2021-12-31 06:51 | PC.NURSE ---
Pt refused to wear bipap at 0603 this am. pt was placed on NRB and O2 sats remained 100%. Pt was then placed on Venti mask 15L 50% and O2 sats remained >90%. MD made aware. Pt agreed and was placed back on BIPAP at 0645 and O2 sats remain >90%. Pt c/o chest pain at 0626. Paged respiratory for ekg and Paged Dr. Mckeon. Spoke with Dr Mckeon and reported chest pain and EKG results of ST depression read by ED MD. No new orders at this time. Also reported to Dr. Mckeon of pt not having lactic and blood cultures ordered, no new orders at this time.
[2021-12-31 07:39] LABS: ABG Base Excess -1.4 mmol/L (-2.4-2.3); ABG HCO3 26.4 mmhg (22.0-26.0); ABG Oxygen Saturation 99 % (90-100); ABG PH 7.21 mmol/L (7.35-7.45); ABG PO2 130.3 mmhg (80-100); ABG TCO2 28.5 mmhg (23-27)
[2021-12-31 08:14] LABS: Basophils # 0.1 K/mm3 (0-0.2); Basophils % 0.7 % (0.1-2.0); Eosinophils % 0.1 % (0.1-12.0); Hematocrit 35.2 % (37.0-47.0); Hemoglobin 11.3 g/dL (12.2-16.2); Lymphocytes # 0.6 K/mm3 (0.7-4.5); Lymphocytes % 8.1 % (10-50); Mean Corpuscular HGB Conc 32.2 g/dL (31.8-35.4); Mean Corpuscular Hemoglobin 27.4 pg (27.0-31.2); Mean Corpuscular Volume 85.3 fl (81-99); Mean Platelet Volume 8.1 fl (7.4-10.4); Monocytes # 0.4 K/mm3 (0.1-1.0); Monocytes % 5.7 % (1.7-9.3); Neutrophils # 5.8 K/mm3 (1.8-7.8); Neutrophils % 85.4 % (37.0-80.0); Platelet Count 236 K/mm3 (142-424); Red Blood Count 4.12 M/mm3 (4.20-5.40); Red Cell Distribution Width 14.7 % (11.5-17.5); White Blood Count 6.8 K/mm3 (4.8-10.8)
[2021-12-31 08:16] LABS: Chloride 103 mmol/L (98-107)
[2021-12-31 08:17] LABS: Potassium 4.9 mmoL/L (3.5-5.1); Sodium 141 mmol/L (136-145)
[2021-12-31 08:17] LABS: Oxygen 70 %
[2021-12-31 08:18] LABS: Allen's Test ACCEPTABLE; Source R RADIAL
[2021-12-31 08:19] LABS: ABG PCO2 67.6 mmhg (35.0-45.0)
[2021-12-31 08:19] LABS: MANUAL DIFFERENTIAL MANUAL DIFFERENTIAL (MANUAL DIFF)
[2021-12-31 08:20] LABS: Anion Gap 13.9 mEq/L (5-15); Blood Urea Nitrogen 46 mg/dl (7-17); Calcium 9.7 mg/dl (8.4-10.2); Carbon Dioxide 29 mmol/L (22.0-30.0); Creatinine Clearance Estimated 53 mL/min (50-200); Estimated Glomerular Filt Rate 42 ml/min (>60); GFR (African American) 51 ML/MIN (>60); Glucose 150 mg/dl (74-100)
[2021-12-31 09:11] LABS: Lymphocytes % 12 % (10-50); Monocytes % 3 % (2-9); Neutrophils % 85 % (42-76); Platelet Estimate Normal; RBC Morphology Normal; Total Cells Counted 100
--- NOTE | 2021-12-31 10:48 | EXP.ACUTE.PN ---
Subjective *Date: 12/31/21 *Time: 10:48 Interval history: Nurse reports patient has been confused at times and tries to remove her BiPap mask. She has also been pulling at her philippe catheter. Medical Exam Vital signs and Labs for Last 24 Hours: Vital Signs Temp Pulse Pulse Resp BP Pulse Ox FiO2 12/31/21 10:05 40 12/31/21 10:00 40 12/31/21 08:00 95 50 12/31/21 08:00 93 L 50 12/31/21 08:00 98.0 F 95 H 20 114/59 L 100 12/31/21 06:53 112 H 12/31/21 06:53 108 H 12/31/21 06:53 93 L 70 12/31/21 06:53 70 12/31/21 03:27 97.8 F 95 H 24 138/78 100 12/30/21 23:36 97.6 F 84 25 H 109/62 L 100 12/30/21 20:00 97.6 F 94 H 24 145/66 H 100 12/30/21 19:36 70 12/30/21 19:36 87 12/30/21 19:35 87 12/30/21 16:00 97.8 F 88 16 160/70 H 100 12/30/21 16:00 98 12/30/21 13:42 85 12/30/21 13:42 85 12/30/21 13:42 70 12/30/21 12:00 97.9 F 82 20 128/55 L 99 Intake and Output 12/30/21 12/31/21 12/31/21 23:59 07:59 15:59 Intake Total 500 / 620 Output Total 320 / 1100 450 / 450 Balance 180 / -480 -450 / -450 Intake: Intake, Total IV Amount 500 / 500 0.9 % Sodium Chloride 250 ml @ 250 / 250 999 mls/hr IV .Q16M [facility] Rx#: [id number] Azithromycin 500 mg In 0.9 % 250 / 250 Sodium Chloride 250 ml @ 250 mls/hr IV Q24H [facility] Rx#:[id number] Output: Output, Urine Amount 320 / 1100 450 / 450 Other: Weight 156 lb Patient Weight 12/31/21 23:59 Weight 156 lb Laboratory Results - last 24 hr 12/30/21 09:30: Urine Color Yellow, Urine Appearance Clear, Urine pH 5.5, Ur Specific [place] >= 1.030, Urine Protein 2+, Urine Glucose (UA) Trace, Urine Ketones Negative, Urine Blood 2+, Urine Nitrate Negative, Urine Bilirubin Negative, Urine Urobilinogen 0.2, Ur Leukocyte Esterase Negative, Urine RBC 5-10, Urine WBC Occasional, Urine Bacteria 1+ 12/30/21 10:10: Total Counted 100, Neutrophils % (Manual) 89 H, Lymphocytes % (Manual) 9 L, Monocytes % (Manual) 2, Platelet Estimate Normal, RBC Morphology Normal 12/30/21 11:28: POC Glucose 255 H 12/30/21 16:45: POC Glucose 206 H 12/30/21 20:44: POC Glucose 204 H 12/31/21 05:45: POC Glucose 172 H 12/31/21 06:00: Specimen Source R radial, O2 % 70, ABG pH 7.21 L*, ABG pCO2 67.6 H, ABG pO2 130.3 H, ABG HCO3 26.4 H, ABG Total CO2 28.5 H, ABG O2 Saturation 99, ABG Base Excess -1.4, Rommel Test Acceptable, Tidal Volume Bipap 01/2312/31/21 07:38: WBC 6.8, RBC 4.12 L, Hgb 11.3 L, Hct 35.2 L, MCV 85.3, MCH 27.4, MCHC 32.2, RDW 14.7, Plt Count 236, MPV 8.1, Neut % (Auto) 85.4 H, Lymph % (Auto) 8.1 L, [place] % (Auto) 5.7, Eos % (Auto) 0.1, Baso % (Auto) 0.7, Neut # (Auto) 5.8, Lymph # (Auto) 0.6 L, [place] # (Auto) 0.4, Eos # (Auto) 0.0, Baso # (Auto) 0.1, Total Counted 100, Neutrophils % (Manual) 85 H, Lymphocytes % (Manual) 12, Monocytes % (Manual) 3, Platelet Estimate Normal, RBC Morphology Normal 12/31/21 07:38: Sodium 141, Potassium 4.9, Chloride 103, Carbon Dioxide 29, Anion Gap 13.9, BUN 46 H, Creatinine 1.30 H, Estimated Creat Clear 53, Estimated GFR 42 L, Est GFR ( Amer) 51 L, Glucose 150 H D, Calcium 9.7 I & O for Labs for Last 24 Hours: Intake & Output 12/28/21 12/29/21 12/30/21 12/31/21 23:59 23:59 23:59 23:59 Intake Total 490 / 490 620 / 620 Output Total 351 / 351 1100 / 1100 450 / 450 Balance 139 / 139 -480 / -480 -450 / -450 Weight 159 lb 15.831 oz 156 lb 1.6 oz 156 lb Radiology Reports for the Last 24 Hours: CTA of lung showed no PE, but did shows signs of atypical/viral pneumonia Constitutional: Present mild distress Respiratory: Present wheezes, crackles and diminished air movement Cardiac: Present Reg Rate and Rhythm Extremities: Absent edema Assessment and Plan *Assessment and plan (1) Acute respiratory failure with hypoxia: Status: Acute Category: Medical Code(s): J
[2021-12-31 11:19] LABS: POC Glucose,Bedside 146 (70-110)
--- NOTE | 2021-12-31 15:06 | PC.NURSE ---
PT IS RESTING IN BED. ALERT AND ORIENTED X3. THIS MORNING PT WAS VERY RESTLESS AND HAD TO CONSTANTLY BE REMINDED TO KEEP THE BIPAP ON. PT STATED SHE FELT LIKE THE MASK WAS CUTTING IN TO HER FACE. DURING ROUNDS WITH IT WAS DECIDED TO SWITCH PT OVER TO VAPOTHERM TO SEE HOW SHE TOLERATES. PT HAS BEEN ON VAPOTHERM AT 30 L 40 % FIO2 AND STATES SHE IS MORE COMFORTABLE. PT'S CATHETER WAS REMOVED. 200 ML'S OF BLOODY URINE WAS EMPTIED. PT HAD A SMALL SOFT BOWEL MOVEMENT THIS SHIFT. LUNG SOUNDS DIMINISHED. ABDOMEN SOFT/NON TENDER WITH ACTIVE BOWEL SOUNDS. WILL CONTINUE TO MONITOR.
--- NOTE | 2021-12-31 16:42 | PC.NURSE ---
Courtesy round done at this time, patient is sleeping. Fresh ice water given. Bed side commode checked. Trash and linens taken out.
[2021-12-31 17:11] LABS: POC Glucose,Bedside 147 (70-110)
[2022-01-01] VITALS (11 sets, daily range): BP systolic 120–149; BP diastolic 53–64; PULSE 75–90; RESP 16–22; TEMP 36.7–37.1; O2SAT 95–98; BMI 25.4
[2022-01-01 00:45] LABS: POC Glucose,Bedside 129 (70-110)
--- NOTE | 2022-01-01 04:00 | PC.NURSE ---
pt remains on Vapotherm 30L 40%. tolerating well with o2 sats >90%. Lung sounds diminished. non-productive cough present. pt uses call baxter for assistance to bsc. urine remains dark reddish brown.
[2022-01-01 05:26] LABS: POC Glucose,Bedside 117 (70-110)
--- NOTE | 2022-01-01 06:00 | XR_ITS ---
PROCEDURE INFORMATION: Exam: XR Chest Exam date and time: 01/01/2022 5:41 AM Age: 56 years old Clinical indication: Other: Hypoxia rsv pneumonia; Additional info: Hypoxia, rsv pneumonia TECHNIQUE: Imaging protocol: Radiologic exam of the chest. Views: 1 view. COMPARISON: CR XR CHEST PORTABLE 12/29/2021 10:04 AM FINDINGS: Lungs: No focal airspace disease. Pleural spaces: Unremarkable. No pleural effusion. No pneumothorax. Heart/Mediastinum: Cardiomediastinal silhouette is within normal limits. Bones/joints: Unremarkable. IMPRESSION: No acute cardiopulmonary abnormality.
[2022-01-01 07:00] LABS: ABG Base Excess 5.1 mmol/L (-2.4-2.3); ABG HCO3 30.5 mmhg (22.0-26.0); ABG Oxygen Saturation 95 % (90-100); ABG PH 7.36 mmol/L (7.35-7.45); ABG PO2 74.2 mmhg (80-100); ABG TCO2 32.2 mmhg (23-27)
[2022-01-01 07:01] LABS: Allen's Test Acceptable; Oxygen 30L 40% %; Source Left Radial
[2022-01-01 07:03] LABS: ABG PCO2 55.3 mmhg (35.0-45.0)
--- NOTE | 2022-01-01 07:09 | PC.NURSE ---
REPORTED ABG RESULTS TO DR QUINTANILLA
--- NOTE | 2022-01-01 07:52 | EXP.PN ---
Subjective *Date: 01/01/22 *Time: 08:51 Interval history: Nursing reports that she is doing better this morning with improved ABGs and no confusion. Patient also feels like she is doing better. She has been up to the bedside commode. She currently denies chest pain and shortness of breath. She remains on Vapotherm at 40%. She eats poorly. ABG show pH 7.36 PCO2 of 55.3 PO2 of 74.2 and a bicarb of 30.5. Other labs are pending Exam Data for Last 24 hours Vital signs and Labs for Last 24 Hours: Temp Pulse Resp BP Pulse Ox FiO2 98.2 F 83 18 142/64 H 96 40 01/01/22 07:46 01/01/22 07:46 01/01/22 07:46 01/01/22 07:46 01/01/22 07:46 01/01/22 06:14 Laboratory Results - last 24 hr 12/31/21 06:00: Specimen Source R radial, O2 % 70, ABG pH 7.21 L*, ABG pCO2 67.6 H, ABG pO2 130.3 H, ABG HCO3 26.4 H, ABG Total CO2 28.5 H, ABG O2 Saturation 99, ABG Base Excess -1.4, Rommel Test Acceptable, Tidal Volume Bipap 01/2312/31/21 07:38: WBC 6.8, RBC 4.12 L, Hgb 11.3 L, Hct 35.2 L, MCV 85.3, MCH 27.4, MCHC 32.2, RDW 14.7, Plt Count 236, MPV 8.1, Neut % (Auto) 85.4 H, Lymph % (Auto) 8.1 L, [place] % (Auto) 5.7, Eos % (Auto) 0.1, Baso % (Auto) 0.7, Neut # (Auto) 5.8, Lymph # (Auto) 0.6 L, [place] # (Auto) 0.4, Eos # (Auto) 0.0, Baso # (Auto) 0.1, Total Counted 100, Neutrophils % (Manual) 85 H, Lymphocytes % (Manual) 12, Monocytes % (Manual) 3, Platelet Estimate Normal, RBC Morphology Normal 12/31/21 07:38: Sodium 141, Potassium 4.9, Chloride 103, Carbon Dioxide 29, Anion Gap 13.9, BUN 46 H, Creatinine 1.30 H, Estimated Creat Clear 53, Estimated GFR 42 L, Est GFR ( Amer) 51 L, Glucose 150 H D, Calcium 9.7 12/31/21 11:06: POC Glucose 146 H 12/31/21 16:41: POC Glucose 147 H 12/31/21 20:44: POC Glucose 129 H 01/01/22 05:19: POC Glucose 117 H 01/01/22 06:00: Specimen Source Left radial, O2 % 30l 40%, ABG pH 7.36, ABG pCO2 55.3 H, ABG pO2 74.2 L, ABG HCO3 30.5 H, ABG Total CO2 32.2 H, ABG O2 Saturation 95, ABG Base Excess 5.1 H, Rommel Test Acceptable I & O for Last 24 hours: Intake & Output 12/29/21 12/30/21 12/31/21 01/01/22 11:59 11:59 11:59 11:59 Intake Total 610 / 610 500 / 500 850 / 850 Output Total 651 / 651 1250 / 1250 800 / 800 Balance -41 / -41 -750 / -750 50 / 50 Weight 160 lb 156 lb 1.6 oz 156 lb 158 lb 1 oz Constitutional Constitutional: no acute distress *Routine Respiratory Exam Respiratory: Present wheezes and crackles (Greater on the left) *Routine Cardiovascular Exam Cardiovascular: Present RRR *Routine Abdominal Exam Abdominal: Present soft and normoactive bowel sounds; Absent tenderness or distended *Routine Extremities Exam Extremities: Absent edema or calf tenderness Assessment and Plan *Assessment and plan (1) Acute respiratory failure with hypoxia: Status: Acute Category: Medical Code(s): J96.01 - Acute respiratory failure with hypoxia (2) COPD exacerbation: Status: Acute Category: Medical Code(s): J44.1 - Chronic obstructive pulmonary disease with (acute) exacerbation (3) Deviated nasal septum: Status: Acute Category: Medical Code(s): J34.2 - Deviated nasal septum (4) Hearing Loss: Status: Acute Category: Medical Code(s): H91.90 - Unspecified hearing loss, unspecified ear (5) Hyperlipidemia: Status: Chronic Category: Medical Code(s): E78.5 - Hyperlipidemia, unspecified (6) Hypertension: Status: Chronic Category: Medical Code(s): I10 - Essential (primary) hypertension (7) Type 2 diabetes mellitus: Status: Chronic Qualifiers: Diabetes mellitus complication detail: with foot ulcer 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
[2022-01-01 07:59] LABS: Basophils # 0.1 K/mm3 (0-0.2); Basophils % 1.6 % (0.1-2.0); Eosinophils % 0.5 % (0.1-12.0); Hemoglobin 10.7 g/dL (12.2-16.2); Lymphocytes # 1.1 K/mm3 (0.7-4.5); Lymphocytes % 20.9 % (10-50); Mean Corpuscular HGB Conc 32.5 g/dL (31.8-35.4); Mean Corpuscular Hemoglobin 27.2 pg (27.0-31.2); Mean Corpuscular Volume 83.7 fl (81-99); Mean Platelet Volume 7.7 fl (7.4-10.4); Monocytes # 0.4 K/mm3 (0.1-1.0); Monocytes % 8.5 % (1.7-9.3); Neutrophils # 3.5 K/mm3 (1.8-7.8); Neutrophils % 68.4 % (37.0-80.0); Platelet Count 208 K/mm3 (142-424); Red Blood Count 3.94 M/mm3 (4.20-5.40); Red Cell Distribution Width 14.7 % (11.5-17.5); White Blood Count 5.2 K/mm3 (4.8-10.8)
[2022-01-01 08:07] LABS: Anion Gap 13.4 mEq/L (5-15); Blood Urea Nitrogen 42 mg/dl (7-17); Calcium 9.8 mg/dl (8.4-10.2); Carbon Dioxide 31 mmol/L (22.0-30.0); Chloride 102 mmol/L (98-107); Creatinine Clearance Estimated 58 mL/min (50-200); Estimated Glomerular Filt Rate 46 ml/min (>60); GFR (African American) 56 ML/MIN (>60); Glucose 145 mg/dl (74-100); Potassium 4.4 mmoL/L (3.5-5.1); Sodium 142 mmol/L (136-145)
[2022-01-01 11:21] LABS: POC Glucose,Bedside 177 (70-110)
[2022-01-01 17:14] LABS: POC Glucose,Bedside 141 (70-110)
[2022-01-01 21:49] LABS: POC Glucose,Bedside 256 (70-110)
[2022-01-02] VITALS (11 sets, daily range): BP systolic 143–156; BP diastolic 60–87; PULSE 71–110; RESP 16–18; TEMP 36.5–36.8; O2SAT 93–100; BMI 25.2
--- NOTE | 2022-01-02 05:36 | PC.NURSE ---
NO ACUTE CHANGES SINCE PREVIOUS ASSESSMENT. PT HAS RESTED INTERMITTENTLY THIS SHIFT. AMBULATING TO BEDSIDE COMMODE WITH STANDBY ASSIST AND IS TOLERATING WELL. PT HAS INTERMITTENT EPISODES OR NON-PRODUCTIVE COUGHING. LUNG SOUNDS REMAIN DIMINISHED BILATERALLY. VAPO SETTINGS REMAIN AT 30/40 AND PT IS TOLERATING WELL. NO C/O N/V/D OR SOB THIS SHIFT. CALL BURNS WITHIN REACH. BEDALARM IN PLACE FOR PT SAFETY.
[2022-01-02 05:37] LABS: POC Glucose,Bedside 93 (70-110)
[2022-01-02 07:04] LABS: Basophils # 0.1 K/mm3 (0-0.2); Basophils % 1.5 % (0.1-2.0); Eosinophils # 0.1 K/mm3 (0.0-0.4); Eosinophils % 1.7 % (0.1-12.0); Hematocrit 31.3 % (37.0-47.0); Hemoglobin 10.4 g/dL (12.2-16.2); Lymphocytes # 1.5 K/mm3 (0.7-4.5); Lymphocytes % 36.5 % (10-50); Mean Corpuscular HGB Conc 33.2 g/dL (31.8-35.4); Mean Corpuscular Hemoglobin 27.7 pg (27.0-31.2); Mean Corpuscular Volume 83.2 fl (81-99); Mean Platelet Volume 7.6 fl (7.4-10.4); Monocytes # 0.4 K/mm3 (0.1-1.0); Monocytes % 10.1 % (1.7-9.3); Neutrophils # 2.1 K/mm3 (1.8-7.8); Neutrophils % 50.2 % (37.0-80.0); Platelet Count 184 K/mm3 (142-424); Red Blood Count 3.76 M/mm3 (4.20-5.40); Red Cell Distribution Width 14.5 % (11.5-17.5); White Blood Count 4.2 K/mm3 (4.8-10.8)
[2022-01-02 07:15] LABS: Anion Gap 12.2 mEq/L (5-15); Blood Urea Nitrogen 33 mg/dl (7-17); Calcium 9.8 mg/dl (8.4-10.2); Carbon Dioxide 33 mmol/L (22.0-30.0); Chloride 103 mmol/L (98-107); Creatinine Clearance Estimated 69 mL/min (50-200); Estimated Glomerular Filt Rate 57 ml/min (>60); GFR (African American) 69 ML/MIN (>60); Glucose 79 mg/dl (74-100); Potassium 4.2 mmoL/L (3.5-5.1); Sodium 144 mmol/L (136-145)
--- NOTE | 2022-01-02 07:53 | EXP.PN ---
Subjective *Date: 01/02/22 *Time: 08:38 Interval history: Patient says she rested better. She feels her breathing is better but cannot do without her oxygen. She denies chest pain. She remains on O2 her per Vapotherm. She has been up to the bedside commode. She voids QS. Eating is satisfactory. Laboratory data this a.m. showed white blood cell count of 4200 with a hemoglobin of 10.4 and hematocrit of 31.3. Renal function is normal. Potassium is 4.2. Exam Data for Last 24 hours Vital signs and Labs for Last 24 Hours: Temp Pulse Resp BP Pulse Ox FiO2 98.2 F 73 17 143/60 H 100 40 01/02/22 07:21 01/02/22 07:21 01/02/22 07:21 01/02/22 07:21 01/02/22 07:21 01/02/22 06:33 Laboratory Results - last 24 hr 01/01/22 07:40: WBC 5.2, RBC 3.94 L, Hgb 10.7 L, Hct 33.0 L, MCV 83.7, MCH 27.2, MCHC 32.5, RDW 14.7, Plt Count 208, MPV 7.7, Neut % (Auto) 68.4, Lymph % (Auto) 20.9, [place] % (Auto) 8.5, Eos % (Auto) 0.5, Baso % (Auto) 1.6, Neut # (Auto) 3.5, Lymph # (Auto) 1.1, [place] # (Auto) 0.4, Eos # (Auto) 0.0, Baso # (Auto) 0.1 01/01/22 07:40: Sodium 142, Potassium 4.4, Chloride 102, Carbon Dioxide 31 H, Anion Gap 13.4, BUN 42 H, Creatinine 1.20 H, Estimated Creat Clear 58, Estimated GFR 46 L, Est GFR ( Amer) 56 L, Glucose 145 H, Calcium 9.8 01/01/22 11:15: POC Glucose 177 H 01/01/22 16:59: POC Glucose 141 H 01/01/22 21:33: POC Glucose 256 H 01/02/22 05:30: POC Glucose 93 01/02/22 06:46: Sodium 144, Potassium 4.2, Chloride 103, Carbon Dioxide 33 H, Anion Gap 12.2, BUN 33 H, Creatinine 1.00, Estimated Creat Clear 69, Estimated GFR 57 L, Est GFR ( Amer) 69 D, Glucose 79 D, Calcium 9.8 01/02/22 06:46: WBC 4.2 L, RBC 3.76 L, Hgb 10.4 L, Hct 31.3 L, MCV 83.2, MCH 27.7, MCHC 33.2, RDW 14.5, Plt Count 184, MPV 7.6, Neut % (Auto) 50.2, Lymph % (Auto) 36.5, [place] % (Auto) 10.1 H, Eos % (Auto) 1.7, Baso % (Auto) 1.5, Neut # (Auto) 2.1, Lymph # (Auto) 1.5, [place] # (Auto) 0.4, Eos # (Auto) 0.1, Baso # (Auto) 0.1 I & O for Last 24 hours: Intake & Output 12/30/21 12/31/21 01/01/22 01/02/22 11:59 11:59 11:59 11:59 Intake Total 610 / 610 500 / 500 1090 / 1090 900 / 900 Output Total 651 / 651 1250 / 1250 1150 / 1150 1200 / 1200 Balance -41 / -41 -750 / -750 -60 / -60 -300 / -300 Weight 156 lb 1.6 oz 156 lb 158 lb 1 oz 157 lb Constitutional Constitutional: no acute distress Comments: Sitting up crosslegged good in the bed and appears very comfortable. No dyspnea noted. *Routine Respiratory Exam Respiratory: Present wheezes (Inspiratory and expiratory) and crackles (Crackles mainly in the left base.) Comments: Less frequent congested cough. *Routine Cardiovascular Exam Cardiovascular: Present RRR *Routine Abdominal Exam Abdominal: Present soft and normoactive bowel sounds; Absent tenderness or distended *Routine Extremities Exam Extremities: Absent edema or calf tenderness *Routine Neurological Exam Neurological: Present alert and oriented X3 Assessment and Plan *Assessment and plan (1) Acute respiratory failure with hypoxia: Status: Acute Category: Medical Code(s): J96.01 - Acute respiratory failure with hypoxia (2) COPD exacerbation: Status: Acute Category: Medical Code(s): J44.1 - Chronic obstructive pulmonary disease with (acute) exacerbation (3) Deviated nasal septum: Status: Acute Category: Medical Code(s): J34.2 - Deviated nasal septum (4) Hearing Loss: Status: Acute Category: Medical Code(s): H91.90 - Unspecified hearing loss, unspecified ear (5) Hyperlipidemia: Status: Chronic Category: Medical Code(s): E78.5 - Hyperlipidemia, unspecified (6) Hypertension: Status: Chronic Category: Medical Code(s): I10 - Essential (primary) hypertension (7) Type 2 diabetes mellitus: Status: Chronic Qualifiers: Diabetes mellitus complication detail: with foot ulcer Diabetes mellitus l
--- NOTE | 2022-01-02 11:02 | HMH.PTEV ---
Physical Therapy Evaluation Rehab PT IP Evaluation Start: 01/02/22 08:39 Freq: ONCE Status: Active Protocol: Document 01/02/22 10:59 DAR (Rec: 01/02/22 11:02 DAR [id number]) Subjective/History History History Patient is a 56-year-old female with past medical history of CAD, diabetes, hypertension, hyperlipidemia, smoking history who presents with concern for shortness of breath.? She says that her grandkids have recently gotten influenza and she started to feel sick over the last couple days.? Subjective Subjective No complaints from pt Rehab PT IP Eval Objective Appearance Patient Behavior Cooperative Patient Orientation Place,Name,Birthday,Year, Situation Difficulty following instructions none Speech Pattern Appropriate Ambulation Patient Able to Ambulate Yes Ambulation Observation IP General Gait Pattern Observation Wide Based Gait Ambulation Distance (feet) 30 Ambulation Assistive Device None Ambulation Ability Supervision/Stand by Balance Ability to Arise Able, uses arms to help Sitting Balance Steady, safe Standing Balance Steady, wide stance Dynamic Sitting Balance Ability Normal Dynamic Standing Balance Ability Good Transfers Bed Transfer Ability Independent Chair Transfer Ability Independent Sit to Stand Bed Transfer Ability Independent Sit to Stand Chair Transfer Ability Independent Rehab PT IP prob,goals,plan Problems Date of Evaluation: 01/02/22 PT IP Problems Balance Rehab Potential Rehab Potential Innapropriate for Skilled Therapy Discharge Plan PT Discharge Plan Pt functional ability at baseline - O2 sats maintain in 95+ range w/ activity - no skilled therapy needs at this time G -code Required No Eval Complexity Eval Charge Codes 98925 - Low Complexity PHYSICIAN CERTIFICATION: I certify the specified therapy services for Rajni Negro are required, authorized, and reviewed every 30 days.
[2022-01-02 13:26] LABS: POC Glucose,Bedside 182 (70-110)
[2022-01-02 20:38] LABS: POC Glucose,Bedside 162 (70-110)
[2022-01-02 20:38] LABS: POC Glucose,Bedside 215 (70-110)
[2022-01-03] VITALS (8 sets, daily range): BP systolic 123–145; BP diastolic 62–68; PULSE 52–82; RESP 17–18; TEMP 36.6–36.7; O2SAT 89–95; BMI 25.5
--- NOTE | 2022-01-03 05:13 | PC.NURSE ---
NO ACUTE CHANGES SINCE PREVIOUS ASSESSMENT. PT HAS RESTED WELL THIS SHIFT WITH FEW EPISODES OF COUGHING. LUNG SOUNDS REMAIN DIMINISHED. PT STATED SHE FELT A LITTLE BETTER TODAY. AMBULATING TO BEDSIDE COMMODE WITH STANDBY ASSIST.
[2022-01-03 06:12] LABS: POC Glucose,Bedside 97 (70-110)
--- NOTE | 2022-01-03 07:52 | EXP.PN ---
Subjective *Date: 01/03/22 *Time: 07:57 Interval history: Patient did sleep some last night. She ate her breakfast. She was not out of bed except for the bedside commode. She states she has her usual cough. Oxygen has been off and O2 sats are at 85%. Exam Data for Last 24 hours Vital signs and Labs for Last 24 Hours: Temp Pulse Resp BP Pulse Ox FiO2 98 F 77 18 123/68 90 L 32 01/03/22 04:00 01/03/22 06:08 01/03/22 04:00 01/03/22 04:00 01/03/22 06:08 01/02/22 19:27 Laboratory Results - last 24 hr 01/02/22 11:05: POC Glucose 182 H 01/02/22 16:53: POC Glucose 162 H 01/02/22 20:30: POC Glucose 215 H 01/03/22 06:05: POC Glucose 97 I & O for Last 24 hours: Intake & Output 12/31/21 01/01/22 01/02/22 01/03/22 11:59 11:59 11:59 11:59 Intake Total 500 / 500 1090 / 1090 900 / 900 600 / 600 Output Total 1250 / 1250 1150 / 1150 1200 / 1200 450 / 450 Balance -750 / -750 -60 / -60 -300 / -300 150 / 150 Weight 156 lb 158 lb 1 oz 157 lb 159 lb Constitutional Constitutional: no acute distress Comments: Appears comfortable without dyspnea with O2 off. *Routine Respiratory Exam Respiratory: Present wheezes (Continues with some wheezing although less prominent today.) *Routine Cardiovascular Exam Cardiovascular: Present RRR *Routine Abdominal Exam Abdominal: Present soft and normoactive bowel sounds; Absent tenderness or distended *Routine Extremities Exam Extremities: Present pulses intact; Absent edema or calf tenderness *Routine Neurological Exam Neurological: Present alert and oriented X3 Assessment and Plan *Assessment and plan (1) Acute respiratory failure with hypoxia: Status: Acute Category: Medical Code(s): J96.01 - Acute respiratory failure with hypoxia (2) COPD exacerbation: Status: Acute Category: Medical Code(s): J44.1 - Chronic obstructive pulmonary disease with (acute) exacerbation (3) Deviated nasal septum: Status: Acute Category: Medical Code(s): J34.2 - Deviated nasal septum (4) Hearing Loss: Status: Acute Category: Medical Code(s): H91.90 - Unspecified hearing loss, unspecified ear (5) Hyperlipidemia: Status: Chronic Category: Medical Code(s): E78.5 - Hyperlipidemia, unspecified (6) Hypertension: Status: Chronic Category: Medical Code(s): I10 - Essential (primary) hypertension (7) Type 2 diabetes mellitus: Status: Chronic Qualifiers: Diabetes mellitus complication detail: with foot ulcer Diabetes mellitus shelter insulin use: with extermination inspector use Qualified Code(s): E11.621 - Type 2 diabetes mellitus with foot ulcer; L97.509 - Non-pressure chronic ulcer of other part of unspecified foot with unspecified severity; Z79.4 - long-term (current) use of insulin Category: Medical Code(s): E11.9 - Type 2 diabetes mellitus without complications (8) PAD (peripheral artery disease): Status: Acute Category: Medical Code(s): I73.9 - Peripheral vascular disease, unspecified (9) Pneumonia due to respiratory syncytial virus (RSV): Status: Acute Category: Medical Code(s): J12.1 - Respiratory syncytial virus pneumonia Plan Patient continues to improve. We will continue to wean from oxygen. May need home O2. Dr. Nelson entry - saw patient, agree with above note. Wean oxygen, home soon.
--- NOTE | 2022-01-03 08:52 | PC.NURSE ---
Sent sputum down
--- NOTE | 2022-01-03 14:07 | PC.NURSE ---
Pt RA sat is 85% at rest
--- NOTE | 2022-01-03 14:44 | PC.NURSE ---
Pt is waiting for o2 delivery and transport
--- NOTE | 2022-01-03 15:04 | CARE MANAGER ---
Patient unable to be weaned from supplemental O2. Patient choice signed for Byron and placed on chart. Order/clinical faxed and portable was delivered to hospital.
[2022-01-03 16:26] LABS: POC Glucose,Bedside 154 (70-110)
--- NOTE | 2022-01-04 13:47 | CARE MANAGER ---
Called and spoke with Ms. Negro's daughter to discuss post discharge status. She states that patient is doing well, and is using her continuous home O2. She is aware of upcoming appointment with Dr. Driver. No other concerns or complaints voiced at time of call.
--- NOTE | 2022-01-04 14:46 | EXP.DC.SUM ---
General Admission date:: 12/29/21 Discharge date: 01/03/22 HPI HPI HPI: Patient is a 56-year-old female with past medical history of CAD, diabetes, hypertension, hyperlipidemia, smoking history who presents with concern for shortness of breath.? She says that her grandkids have recently gotten influenza and she started to feel sick over the last couple days.? She is gotten progressively more short of breath over the last 24 hours.? She says that she has a clear/white sputum production but this is normal for her.? Denies any fever or chills.? She says that she feels like she cannot get a deep breath.? She does feel better sitting up and feels more short of breath if she lies flat.? Denies any chest pain.? Denies any abdominal pain. (above as per ER physician) Further to above, the patient states she began feeling sick on Saturday, started coughing on Saturday, and began getting short of breath on . Her grandkids have had flu but her daughter has had bronchitis and not the flu. She thinks she may have had a low-grade fever and she has been achy the past few days. Oxygen saturation was 69% when she arrived in the emergency room and it has now improved into the 90s on 3 L of oxygen. Hospital Course Hospital Course Hospital Course: The patient was admitted and started on IV antibiotics, duo nebs, oxygen, and IV steroids. Her oxygen saturations did improve. Her flu and COVID test were both negative, therefore a respiratory panel was ordered since other family members have been sick but did not have the flu. She became more hypoxic throughout the first evening and BiPAP had to be ordered. Her respiratory panel was positive for RSV. A CTA of the chest was ordered to rule out a PE and her Lovenox dose was increased. Her CTA showed no PE, but did show signs of atypical/viral pneumonia. Her PCO2 was higher on her ABGs by the morning of 12/31/2021. She was started on Vapotherm with hope she would tolerate it better than BiPAP, as she had been pulling at the mask and trying to remove it. Her ABGs improved on the Vapotherm and her confusion resolved. She felt better and was able to get up to the bedside commode. Her oxygen was weaned and she was able to be placed on nasal cannula. When taken off of her nasal oxygen, her sats were 85%. It was felt she would need home oxygen at 2 L/min and was stable to be discharged home on 01/03/2022 and will follow up with Dr. Driver in 1 week. Exam Data for Last 24 hours Vital signs and Labs for Last 24 Hours: Temp Pulse Resp BP Pulse Ox FiO2 98.0 F 77 18 142/62 H 89 L 32 01/03/22 11:29 01/03/22 12:50 01/03/22 11:29 01/03/22 11:29 01/03/22 11:29 01/02/22 19:27 Laboratory Results - last 24 hr 01/03/22 11:36: POC Glucose 154 H I & O for Last 24 hours: Intake & Output 01/02/22 01/03/22 01/04/22 01/05/22 11:59 11:59 11:59 11:59 Intake Total 900 / 960 840 / 840 240 / 240 Output Total 1200 / 1200 750 / 750 200 / 200 Balance -300 / -240 90 / 90 40 / 40 Weight 157 lb 159 lb Microbiology Reports for the Last 24 Hours: Microbiology 01/03/22 09:30 Sputum - Expectorated Sputum Gram Stain - Final 01/03/22 09:30 Sputum - Expectorated Sputum Sputum Culture - Preliminary Narrative: Constitutional Constitutional: no acute distress *Routine HEENT Exam Head: Present normocephalic and atraumatic Eye: Present EOMI and PERRL ENT: Present mucous membranes moist *Routine Neck Exam Neck: Present supple and full ROM *Routine Respiratory Exam Respiratory: Present decreased breath sounds and wheezes *Routine Cardiovascular Exam Cardiovascular: Present RRR *Routine Abdominal Exam Abdominal: Present soft and normoactive bowel sounds; Absent tenderness *Routine Rectal Exam Rectal:: deferred *Routine Genitalia Exam Genitalia:: deferred *Routine Extremities Exam Extremities: Absent cyanosis, clubbing or edema *Routine Skin Exam Skin: Present intact; Absent erythema *Routi
== END 2022-01-03 17:59 | disposition home or self-care (01) | DRG 193 ==
LOC: ER 12:05 → 2ND 12:20
PROVIDERS: Internal Medicine Adolescent Medicine; Physician Assistant; Admitting Provider Family Medicine; Emergency Provider Student in an Organized Health Care Education/Training Program; PCP Family Medicine; Visit Provider Family Medicine
DX: J12.1 Respiratory syncytial virus pneumonia (principal); J96.01 Acute respiratory failure with hypoxia; J44.1 Chronic obstructive pulmonary disease with (acute) exacerbation; J21.0 Acute bronchiolitis due to respiratory syncytial virus; F17.210 Nicotine dependence, cigarettes, uncomplicated; I10 Essential (primary) hypertension; E78.5 Hyperlipidemia, unspecified; Z89.429 Acquired absence of other toe(s), unspecified side; E11.621 Type 2 diabetes mellitus with foot ulcer; E11.51 Type 2 diabetes mellitus with diabetic peripheral angiopathy without gangrene
CPT/HCPCS: 36415; 71045; 71275; 80048; 80053; 81001; 82803; 82962; 83735; 83880; 84145; 85007; 85025; 86140; 87070; 87077; 87186; 87205; 87581; 87632; 87798; 93005; 94640; 94660; 94760; 97161; 99285; C9803; J0456; J3475; Q9967; U0003; U0005

== ENCOUNTER 2023-03-31 05:33 | Inpatient (IN) | payer MEDICARE, SELFPAY ==
[2023-03-31] VITALS (19 sets, daily range): BP systolic 135–171; BP diastolic 55–86; PULSE 73–95; RESP 17–22; TEMP 36.6–36.9; O2SAT 83–97; BMI 25.8; BMI 25.3
--- NOTE | 2023-03-31 05:37 | XR_ITS ---
PROCEDURE INFORMATION: Exam: XR Chest Exam date and time: 03/31/2023 5:43 AM Age: 57 years old Clinical indication: Dyspnea; Additional info: Copd SOA TECHNIQUE: Imaging protocol: Radiologic exam of the chest. Views: 1 view. COMPARISON: CR XR CHEST PORTABLE 01/01/2022 5:41 AM FINDINGS: Lungs: Unremarkable. No consolidation. Pleural spaces: Unremarkable. No pleural effusion. No pneumothorax. Heart/Mediastinum: Unremarkable. No cardiomegaly. Bones/joints: Unremarkable. IMPRESSION: No acute findings.
--- NOTE | 2023-03-31 05:37 | ECG_ITS ---
APPROVED REPORT Exam: Resting ECG HR:101 bpm ECG Measurements Heart Rate 101 AXES OR 150 P 82 QRSd 90 QRS 67 QT 331 T 89 QTc 389 Conclusion SINUS TACHYCARDIA POSSIBLE RIGHT ATRIAL ENLARGEMENT [0.25mV P-WAVE] POSSIBLE LEFT ATRIAL ENLARGEMENT [-0.1mV P-WAVE IN V1/V2] MODERATE ST DEPRESSION [0.05+ mV ST DEPRESSION] ABNORMAL ECG UNCONFIRMED REPORT Electronically signed by : Cody Mckeon MD 03/31/2023 14:30:31
--- NOTE | 2023-03-31 05:40 | HMH.EDGENADL ---
Discharge Plan Disposition Patient Disposition: Admitted Chief Complaint: Shortness of Breath/Dyspnea Prescriptions Prescriptions: No Action rosuvastatin 10 mg tablet 10 mg PO HS metformin 500 mg tablet extended release 24 hr 1,000 mg PO BID carvedilol 6.25 mg tablet 6.25 mg PO BID lisinopril 40 mg tablet 40 mg PO DAILY aspirin 81 MG tablet,delayed release (DR/EC) 81 mg PO DAILY amlodipine 10 MG tablet 10 mg PO DAILY insulin glargine 100 UNIT/ML insulin pen 20 unit SQ HS Referrals Follow up/Referrals: Gio Driver MD [Primary Care Provider] - See instructions Clinical Impressions Clinical Impression: Acute exacerbation of chronic obstructive pulmonary disease, Elevated troponin, Acute hypoxemic respiratory failure Discharge ED Provider: Francisco Joshi General Adult HPI General Chief complaint: Shortness of Breath/Dyspnea Stated complaint: SOA Time Seen by Provider: 03/31/23 05:37 History of Present Illness HPI narrative: 57-year-old female presents with shortness of breath. She has history of COPD, type 2 diabetes. She reports that she has been feeling sick for the last couple of days because she was exposed to something her family member brought home. She reports nasal congestion and mild cough. She reports she has developed worsening shortness of breath tonight and tightness when she breathes. She reports wheezing and coughing. She denies fever. Reports cough is nonproductive. Related Data Home Medications Medication Instructions Recorded Confirmed carvedilol 6.25 mg tablet 6.25 mg PO BID High blood pressure 05/29/21 12/29/21 rosuvastatin 10 mg tablet 10 mg PO HS Cholesterol 08/24/21 12/29/21 amlodipine 10 mg tablet 10 mg PO DAILY High blood pressure 08/29/21 12/29/21 aspirin 81 mg tablet,delayed 81 mg PO DAILY heart health 08/29/21 12/29/21 release insulin glargine 100 unit/mL (3 20 unit SQ HS Diabetes 08/29/21 12/29/21 mL) subcutaneous pen lisinopril 40 mg tablet 40 mg PO DAILY High blood pressure 09/11/21 12/29/21 metformin 500 mg tablet,extended 1,000 mg PO BID Diabetes 10/30/21 12/29/21 release 24 hr Allergies Allergy/AdvReac Type Severity Reaction Status Date / Time daptomycin Allergy Severe causes Verified 11/27/21 07:17 extreme muscle spasms vancomycin Allergy Verified 11/27/21 07:17 [facility] Disclaimer: The information contained in this section may have been updated after the patient was seen, as this information can be updated by other users. 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 Gangrene of left foot Hearing Loss Hyperlipidemia Hypertension Left serous otitis media Noncompliance with medication regimen Occluded PICC line Osteomyelitis PAD (peripheral artery disease) Tinnitus of left ear Type 2 diabetes mellitus Surgical History (Updated 01/07/22 @ 00:00 by Katherin Tamayo) History of amputation of hallux History of amputation of toe History of cataract surgery Status post foot surgery Status post transmetatarsal amputation of left foot Family History Diabetes Family history of hypertension Family history of hyperlipidemia Social History Smoking Status: Current every day smoker tobacco type: cigarettes packs per day: 1 alcohol intake: never substance use type: denies use current occupational status: retired Travel in the last 8 weeks: None household members: family housing: house current occupational exposures/hazards: No caffeine: Yes ROS Obtained: Yes All systems reviewed & no additional complaints except as documented Physical Exam General General appearance: alert Comment: Uncomfortable appearing Head Head exam: atraumatic and normocephalic Eye Eye exam: Present normal appearance, PERRL and EOMI ENT ENT exam: Present normal oropharynx and normal external ear exam Neck Neck exam: Present normal inspection and full ROM Chest Chest inspection: Present normal inspection and symmetric chest wall rise; Absent tenderness Respiratory Respiratory exam: Present other (Bilateral wheezing, poor air movement, accessory muscle use noted) Cardiovascular Cardiovascular exam: Present normal rhythm and tachycardia Abdominal Exam Abdominal exam: Present soft; Absent distention, tenderness or guarding Extremities Exam Extremities exam: Present normal inspection; Absent edema or joint swelling Back Exam Back exam: Present normal inspection; Absent tenderness Neurological Exam Neurological exam: Present alert and oriented X3; Absent motor sensory deficit Psychiatric Psychiatric exam: Present normal affect and normal mood Skin Skin exam: Present warm, dry and normal color Lymphatic Lymphatic Findings: no adenopathy Medical Decision Making Medical Records Medical records reviewed: Yes I reviewed the patient's medical records. Eben Inquiry Pt receiving controlled substance: No Eben was queried for this patient: No Vital Signs: 03/31/23 05:40 03/31/23 06:07 03/31/23 05:54 Temperature 98.2 F Temperature Source Oral Pulse Rate 90 Pulse Rate [Left Radial] 95 H Respiratory Rate 19 Blood Pressure [Right Arm] 146/86 H Blood Pressure Mean [Right Arm] 106 Blood Pressure Source [Right Arm] Automatic Cuff Blood Pressure Position [Right Arm] Sitting 02 Sat by Pulse Oximetry 86 L 83 L Oxygen Delivery Method Room Air Room Air Oxygen Flow Rate (LPM) 03/31/23 05:54 03/31/23 06:09 Temperature Temperature Source Pulse Rate 90 Pulse Rate [Left Radial] Respiratory Rate Blood Pressure [Right Arm] Blood Pressure Mean [Right Arm] Blood Pressure Source [Right Arm] Blood Pressure Position [Right Arm] 02 Sat by Pulse Oximetry 95 Oxygen Delivery Method Nasal Cannula Oxygen Flow Rate (LPM) 2 Lab Data Lab results reviewed: Yes I reviewed the patient's lab results. Lab Results 03/31/23 05:38: WBC 8.3, RBC 4.90, Hgb 13.7, Hct 40.7, MCV 83.2, MCH 28.0, MCHC 33.6, RDW 14.1, Plt Count 216, MPV 7.6, Neut % (Auto) 82.8 H, Lymph % (Auto) 9.9 L, [place] % (Auto) 4.2, Eos % (Auto) 2.8, Baso % (Auto) 0.4, Neut # (Auto) 6.9, Lymph # (Auto) 0.8, [place] # (Auto) 0.4, Eos # (Auto) 0.2, Baso # (Auto) 0.0, Sodium 139, Potassium 5.0, Chloride 108 H, Carbon Dioxide 27, Anion Gap 9.0, BUN 18 H, Creatinine 1.00, Estimated Creat Clear 69, Estimated GFR 57 L, Est GFR ( Amer) 69, Glucose 136 H, Calcium 10.1, Total Bilirubin 0.4, AST 32, ALT 16, Alkaline Phosphatase 144 H, Troponin I 0.10 H, Total Protein 7.7, Albumin 4.4, Globulin 3.3 H, Albumin/Globulin Ratio 1.3 03/31/23 05:39: VBG pH 7.29 L, VBG pCO2 46.3, VBG pO2 46.1 H, VBG HCO3 21.9 L, VBG Total CO2 23.3, VBG O2 Saturation 80.8 H, VBG Base Excess -4.6 L 03/31/23 05:40: SARS-CoV-2 (PCR) Not detected, Influenza A Untype (PCR) Not detected, Influenza Type B (PCR) Not detected 03/31/23 05:38 03/31/23 05:38 Orders (Tests/Meds): ED MEDICATIONS Discontinued Medications Generic Name Dose Route Start Last Admin Trade Name Freq PRN Reason Stop Dose Admin Albuterol/Ipratropium 6 ml 03/31/23 05:37 03/31/23 05:53 Ipratropium/Albuterol 3 Ml Neb IH 03/31/23 05:38 6 ml ONCE ONE Administration Magnesium Sulfate 2 gm in 50 mls @ 50 mls/hr 03/31/23 05:39 03/31/23 05:50 Magnesium Sulfate 2gm/50ml Premix IV 03/31/23 06:38 50 mls/hr ONCE ONE Administration Methylprednisolone Sodium Succinate 125 mg 03/31/23 05:37 03/31/23 05:51 Methylprednisolone Sod Succ 125mg Vial IV 03/31/23 05:38 125 mg ONCE ONE Administration ORDERS Category Date Time Status CXR --portable [XR chest portable] Stat Exams 03/31/23 05:37 Taken CBC w/Auto Diff [Complete Blood Count Auto Diff] Stat Lab 03/31/23 05:38 Completed CMP [Comprehensive Metabolic Panel] Stat Lab 03/31/23 05:38 Completed Rapid PCR Covid and Flu A/B Stat Lab 03/31/23 05:40 Completed Troponin I Q3H Lab 03/31/23 05:38 Completed Troponin I Q3H Lab 03/31/23 09:00 Ordered VBG [Venous Blood Gas] Stat RT 03/31/23 05:39 Completed HEART Score History (anamnesis): Slightly suspicious ECG: Normal Age: 45-65 years Risk factors: 1-2 risk factors Troponin: > 3x normal limit HEART Score: 4 Medical Decision Narrative: 57-year-old female with history of type 2 diabetes, COPD presents with shortness of breath.. History was obtained via conversation with patient, EMS. On arrival, patient is afebrile, mildly tachycardic, satting 84% on room air, moving all extremities spontaneously. Full physical exam performed and significant for poor air movement bilaterally with prolonged expiratory phase, diffuse wheezing and mild accessory muscle use. Differential includes but is not limited to COPD exacerbation, viral pneumonia, bacterial pneumonia, allergic reaction, reactive airway. Patient was given [id number] DuoNeb's, IV magnesium, 125 Solu-Medrol for symptomatic management and correction of underlying abnormalities. Workup initiated including CBC CMP VBG COVID flu swab chest x-ray EKG. On re-evaluation, patient reports mild improvement after DuoNeb's. Patient lynette hypoxic, requiring 2 L nasal cannula to maintain sats of 90%. Laboratory workup independently interpreted by me and significant for elevated initial troponin at 0.1. No leukocytosis. VBG shows minimal acidosis. COVID flu swab negative. Imaging independently interpreted by me and significant for no focal opacity. There is some haziness in the right perihilar region, but appears stable from prior.. See radiology read for full review of final results. EKG independently interpreted by me and significant for sinus rhythm, rate of 101, wandering baseline limits interpretation, but no significant ST elevation. Given patient history, exam and workup, patient's presentation most likely represents acute hypoxic respiratory failure secondary to COPD exacerbation. Patient also has initial elevated troponin of undetermined significance. Patient was given IV ceftriaxone for COPD exacerbation. Interactive discussion was had with Dr. Mckeon who accepted patient on behalf of Dr. Nelson. Procedures Risk/Benefits of Procedure(s) Were Explained: Yes Critical Care Critical Care Time Critical Care Time: Yes Attestation: On 03/31/23, the high probability of a clinically significant, sudden or life threatening deterioration of the following system(s) respiratory, cardiac required my full and direct attention, intervention and personal management. The time I documented below is in addition to time spent performing reported procedures but includes the following listed in this critical care notation. Total Time Total Critical Care Time: 40
--- NOTE | 2023-03-31 05:41 | PC.NURSE ---
rt notified of breathing tx
[2023-03-31 05:45] LABS: Coronavirus 19, PCR Not Detected (NotDetected); Influenza A, PCR Not Detected (NotDetected); Influenza B, PCR Not Detected (NotDetected)
[2023-03-31 05:50] LABS: Basophils % 0.4 % (0.1-2.0); Chloride 108 mmol/L (98-107); Eosinophils # 0.2 K/mm3 (0.0-0.4); Eosinophils % 2.8 % (0.1-12.0); Hematocrit 40.7 % (37.0-47.0); Hemoglobin 13.7 g/dL (12.2-16.2); Lymphocytes # 0.8 K/mm3 (0.7-4.5); Lymphocytes % 9.9 % (10-50); Mean Corpuscular HGB Conc 33.6 g/dL (31.8-35.4); Mean Corpuscular Volume 83.2 fl (81-99); Mean Platelet Volume 7.6 fl (7.4-10.4); Monocytes # 0.4 K/mm3 (0.1-1.0); Monocytes % 4.2 % (1.7-9.3); Neutrophils # 6.9 K/mm3 (1.8-7.8); Neutrophils % 82.8 % (37.0-80.0); Platelet Count 216 K/mm3 (142-424); Red Cell Distribution Width 14.1 % (11.5-17.5); Sodium 139 mmol/L (136-145); White Blood Count 8.3 K/mm3 (4.8-10.8)
[2023-03-31] MEDS: MAGNESIUM SULFATE IN WATER 2 GM/50 ML PIGGYBACK IV (05:50)
[2023-03-31] MEDS: METHYLPREDNISOLONE SOD SUCC 125MG VIAL 125 MG IV (05:51)
[2023-03-31 05:53] LABS: Alanine Aminotransferase 16 U/L (12-78); Albumin Level 4.4 g/dl (3.5-5.0); Albumin/Globulin Ratio 1.3 (1.1-1.8); Alkaline Phosphatase 144 U/L (38-126); Aspartate Amino Transferase 32 U/L (14-36); Bilirubin,Total 0.4 mg/dl (0.2-1.3); Blood Urea Nitrogen 18 mg/dl (7-17); Carbon Dioxide 27 mmol/L (22.0-30.0); Creatinine Clearance Estimated 69 mL/min (50-200); Estimated Glomerular Filt Rate 57 ml/min (>60); GFR (African American) 69 ML/MIN (>60); Globulin 3.3 g/dL (1.3-3.2); Total Protein,Serum 7.7 g/dl (6.3-8.2)
[2023-03-31] MEDS: IPRATROPIUM/ALBUTEROL 3 ML NEB 6 ML IH (05:53)
[2023-03-31 05:54] LABS: Calcium 10.1 mg/dl (8.4-10.2); Glucose 136 mg/dl (74-100)
[2023-03-31 06:04] LABS: VBG Base Excess -4.6 mmol/L (-2.4-2.3); VBG HCO3 21.9 mmol/L (23-30); VBG Oxygen Saturation 80.8 % (50-70); VBG PCO2 46.3 mmol/L (35-51); VBG PH 7.29 mmol/L (7.31-7.41); VBG PO2 46.1 mmol/L (28-40); VBG Total CO2 23.3 mmol/L (23-27)
[2023-03-31] MEDS: CEFTRIAXONE 1 GM 1 GM in 0.9 % SODIUM CHLORIDE 50 ML IV (06:50)
--- NOTE | 2023-03-31 06:53 | PC.NURSE ---
Admitting notified for OBS admission for Seymour, COPD. Patient to board in ED until room available on 2nd floor.
--- NOTE | 2023-03-31 07:04 | PC.NURSE ---
Pt moved from stretcher to hospital bed, made comfortable, provided with water. No other needs voiced and call light within reach.
[2023-03-31] MEDS: IPRATROPIUM/ALBUTEROL 3 ML NEB IH ×5 (07:39→21:47)
--- NOTE | 2023-03-31 08:40 | PC.NURSE ---
DR QUINTANILLA AT BEDSIDE
--- NOTE | 2023-03-31 09:27 | PC.NURSE ---
Trop drawn and sent to LAB. No needs voiced by pt at this time. Call light remains within reach.
--- NOTE | 2023-03-31 09:31 | P.HP_ITS ---
History of Present Illness *Admission Date: 03/31/23 *Reason for visit:: Chest pain/Shortness of breath *History of present illness: Ms. Negro is a 57 year old female patient of [facility], who see Dr. Driver for her primary care. She presented to [facility] overnight complaini ng of chest pain associated with shortness of breath. She states that she had been exposed to a sick family member a few days ago and felt like she was getting a cold. She has had some cough. [facility] Disclaimer: The information contained in this section may have been updated after the patient was seen, as this information can be updated by other users. 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 Gangrene of left foot Hearing Loss Hyperlipidemia Hypertension Left serous otitis media Noncompliance with medication regimen Occluded PICC line Osteomyelitis PAD (peripheral artery disease) Tinnitus of left ear Type 2 diabetes mellitus Surgical History (Updated 01/07/22 @ 00:00 by Katherin Tmaayo) History of amputation of hallux History of amputation of toe History of cataract surgery Status post foot surgery Status post transmetatarsal amputation of left foot Family History Diabetes Family history of hypertension Family history of hyperlipidemia Social History Smoking Status: Current every day smoker tobacco type: cigarettes packs per day: 1 alcohol intake: never substance use type: denies use current occupational status: retired Travel in the last 8 weeks: None household members: family housing: house current occupational exposures/hazards: No caffeine: Yes Review of Systems Constitutional Constitutional: Denies body ache(s) ENT Ears, Nose, Mouth, and Throat: Denies dizziness *Cardiovascular Cardiovascular: Reports chest pain and Denies edema *Respiratory Respiratory: Denies hemoptysis *Gastrointestinal Gastrointestinal: Denies abdominal pain *Genitourinary Genitourinary: Denies dysuria *Musculoskeletal Musculoskeletal: Denies arthralgias *Neurologic Neurologic: Denies dizziness Meds Home Medications and Allergies Home Medications Medication Instructions Recorded Confirmed Type carvedilol 6.25 mg tablet 6.25 mg PO BID High blood pressure 05/29/21 12/29/21 History rosuvastatin 10 mg tablet 10 mg PO HS Cholesterol 08/24/21 12/29/21 History amlodipine 10 mg tablet 10 mg PO DAILY High blood pressure 08/29/21 12/29/21 History aspirin 81 mg tablet,delayed 81 mg PO DAILY heart health 08/29/21 12/29/21 History release insulin glargine 100 unit/mL (3 20 unit SQ HS Diabetes 08/29/21 12/29/21 History mL) subcutaneous pen lisinopril 40 mg tablet 40 mg PO DAILY High blood pressure 09/11/21 12/29/21 History metformin 500 mg tablet,extended 1,000 mg PO BID Diabetes 10/30/21 12/29/21 History release 24 hr New Prescriptions to Start Prescriptions: Allergies Allergy/AdvReac Type Severity Reaction Status Date / Time daptomycin Allergy Severe causes Verified 11/27/21 07:17 extreme muscle spasms vancomycin Allergy Verified 11/27/21 07:17 Exam Data for Last 24 hours Vital signs and Labs for Last 24 Hours: Temp Pulse Resp BP Pulse Ox O2 Del Method O2 Flow Rate 98.2 F 77 19 146/86 H 94 L Nasal Cannula 2 03/31/23 05:40 03/31/23 07:40 03/31/23 05:40 03/31/23 05:40 03/31/23 07:40 03/31/23 07:40 03/31/23 07:40 Laboratory Results - last 24 hr 03/31/23 05:38: WBC 8.3, RBC 4.90, Hgb 13.7, Hct 40.7, MCV 83.2, MCH 28.0, MCHC 33.6, RDW 14.1, Plt Count 216, MPV 7.6, Neut % (Auto) 82.8 H, Lymph % (Auto) 9.9 L, [place] % (Auto) 4.2, Eos % (Auto) 2.8, Baso % (Auto) 0.4, Neut # (Auto) 6.9, Lymph # (Auto) 0.8, [place] # (Auto) 0.4, Eos # (Auto) 0.2, Baso # (Auto) 0.0, Sodium 139, Potassium 5.0, Chloride 108 H, Carbon Dioxide 27, Anion Gap 9.0, BUN 18 H, Creatinine 1.00, Estimated Creat Clear 69, Estimated GFR 57 L, Est GFR ( Amer) 69, Glucose 136 H, Calcium 10.1, Total Bilirubin 0.4, AST 32, ALT 16, Alkaline Phosphatase 144 H, Troponin I 0.10 H, Total Protein 7.7, Albumin 4.4, Globulin 3.3 H, Albumin/Globulin Ratio 1.3 03/31/23 05:39: VBG pH 7.29 L, VBG pCO2 46.3, VBG pO2 46.1 H, VBG HCO3 21.9 L, VBG Total CO2 23.3, VBG O2 Saturation 80.8 H, VBG Base Excess -4.6 L 03/31/23 05:40: SARS-CoV-2 (PCR) Not detected, Influenza A Untype (PCR) Not detected, Influenza Type B (PCR) Not detected I & O for Last 24 hours: Intake & Output 03/28/23 03/29/23 03/30/23 03/31/23 23:59 23:59 23:59 23:59 Weight 160 lb Constitutional Constitutional: no acute distress *Routine HEENT Exam Head: Present normocephalic Eye: Present EOMI and PERRL ENT: Present mucous membranes moist *Routine Neck Exam Neck: Present supple; Absent lymphadenopathy *Routine Respiratory Exam Respiratory: Present CTA bilaterally *Routine Cardiovascular Exam Cardiovascular: Present RRR *Routine Abdominal Exam Abdominal: Present soft and normoactive bowel sounds; Absent tenderness *Routine Rectal Exam Rectal:: deferred *Routine Genitalia Exam Genitalia:: deferred *Routine Extremities Exam Extremities: Absent cyanosis, clubbing or edema Comments: 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 *Routine Skin Exam Skin: Present warm; Absent rash *Routine Neurological Exam Neurological: Present alert and oriented X3 Assessment and Plan *Assessment and plan (1) Acute exacerbation of chronic obstructive pulmonary disease: Status: Acute Category: Medical Code(s): J44.1 - Chronic obstructive pulmonary disease with (acute) exacerbation (2) Elevated troponin: Status: Acute Category: Medical Code(s): R79.89 - Other specified abnormal findings of blood chemistry (3) Acute hypoxemic respiratory failure: Status: Acute Category: Medical Code(s): J96.01 - Acute respiratory failure with hypoxia (4) COPD (chronic obstructive pulmonary disease): Status: Acute Category: Medical Code(s): J44.9 - Chronic obstructive pulmonary disease, unspecified (5) PAD (peripheral artery disease): Status: Acute Category: Medical Code(s): I73.9 - Peripheral vascular disease, unspecified (6) Tobacco abuse: Status: Acute Category: Medical Code(s): Z72.0 - Tobacco use (7) Type 2 diabetes mellitus: Status: Chronic Qualifiers: Diabetes mellitus fdc insulin use: with fdc use Diabetes mellitus complication detail: with foot ulcer Qualified Code(s): E11.621 - Type 2 diabetes mellitus with foot ulcer; L97.509 - Non-pressure chronic ulcer of other part of unspecified foot with unspecified severity; Z79.4 - prison (current) use of insulin Category: Medical Code(s): E11.9 - Type 2 diabetes mellitus without complications (8) Hypertension: Status: Chronic Category: Medical Code(s): I10 - Essential (primary) hypertension (9) Hyperlipidemia: Status: Chronic Category: Medical Code(s): E78.5 - Hyperlipidemia, unspecified Plan Patient to be admitted for further evaluation and management. Will recheck troponin, continue antibiotics and steroids.
[2023-03-31 09:57] LABS: Troponin I 0.19 ng/ml (0.00-0.034)
--- NOTE | 2023-03-31 10:15 | PC.NURSE ---
Placed order for lunch tray
--- NOTE | 2023-03-31 11:48 | PC.NURSE ---
Rounded on pt. No needs voiced at this time. Call light within reach.
--- NOTE | 2023-03-31 11:59 | PC.NURSE ---
supervisor computer operations called to advise pt would be going to room 208 once it is cleaned and prepped
--- NOTE | 2023-03-31 12:23 | PC.NURSE ---
PT provided with lunch tray and assisted with set up. No other needs voiced and call light within reach.
--- NOTE | 2023-03-31 12:30 | PC.NURSE ---
Report given to TRINI Amato
--- NOTE | 2023-03-31 12:53 | PC.NURSE ---
arrived by w/c from ED
--- NOTE | 2023-03-31 13:02 | PC.NURSE ---
arrived by w/c from ED
[2023-03-31] MEDS: humaLOG 100 UNITS/ML 3ML VIAL (SSI) SQ ×2 (13:17→20:41)
[2023-03-31 13:28] LABS: POC Glucose,Bedside 268 (70-110)
[2023-03-31 22:01] LABS: POC Glucose,Bedside 337 (70-110)
[2023-04-01] VITALS (26 sets, daily range): BP systolic 80–164; BP diastolic 45–73; PULSE 64–90; RESP 14–20; TEMP 36.6–36.8; O2SAT 90–99; BMI 25.9
[2023-04-01] MEDS: IPRATROPIUM/ALBUTEROL 3 ML NEB IH ×5 (02:09→21:05)
[2023-04-01 05:23] LABS: POC Glucose,Bedside 83 (70-110)
--- NOTE | 2023-04-01 07:47 | HMH.PHAINT1 ---
Pharmacy Intervention Comments: Reviewed all medications with patient at bedside and using external fill history. Patient confirmed taking rosuvastatin 10mg every other day due to developing cramps upon taking it daily.
[2023-04-01] MEDS: ASPIRIN 81MG CHEWABLE TABLET 81 MG PO (08:05)
[2023-04-01] MEDS: METFORMIN 500MG TABLET 1000 MG PO ×2 (08:05→16:43)
[2023-04-01] MEDS: LISINOPRIL 20MG TABLET 40 MG PO (08:06)
[2023-04-01] MEDS: CARVEDILOL 6.25MG TABLET 6.25 MG PO ×2 (08:06→21:40)
--- NOTE | 2023-04-01 08:10 | EXP.ACUTE.PN ---
Subjective *Date: 04/01/23 *Time: 09:01 Interval history: Patient states breathing may be a little bit better. She slept in intervals between nursing checks. She has ambulated to the bathroom. She denies any chest pain. She continues with shortness of breath. Medical Exam Vital signs and Labs for Last 24 Hours: Vital Signs Temp Pulse Pulse Resp BP BP Pulse Ox 04/01/23 06:10 70 04/01/23 06:10 71 04/01/23 06:10 91 L 04/01/23 04:00 97.8 F 75 18 130/62 94 L 04/01/23 01:00 70 04/01/23 02:09 76 04/01/23 02:09 72 03/31/23 21:22 73 04/01/23 00:00 98.3 F 64 18 105/50 L 94 L 03/31/23 23:15 03/31/23 23:00 03/31/23 20:00 98.4 F 77 18 142/59 H 90 L 03/31/23 21:48 74 03/31/23 21:47 76 04/01/23 06:22 04/01/23 05:00 04/01/23 02:58 04/01/23 01:00 03/31/23 21:00 03/31/23 20:00 03/31/23 16:00 97.8 F 89 19 136/79 94 L 03/31/23 19:39 80 17 135/55 L 90 L 03/31/23 19:32 03/31/23 19:32 77 03/31/23 19:31 73 03/31/23 16:00 73 03/31/23 16:34 03/31/23 15:08 74 03/31/23 15:08 81 03/31/23 14:35 03/31/23 13:00 03/31/23 14:32 03/31/23 12:51 98.4 F 78 20 138/68 03/31/23 11:50 78 136/65 94 L 03/31/23 10:50 82 03/31/23 10:50 76 03/31/23 10:50 92 L O2 Del Method O2 Flow Rate FiO2 04/01/23 06:10 04/01/23 06:10 04/01/23 06:10 Nasal Cannula 2 04/01/23 04:00 Nasal Cannula 2 04/01/23 01:00 04/01/23 02:09 04/01/23 02:09 03/31/23 21:22 04/01/23 00:00 Nasal Cannula 2 03/31/23 23:15 Nasal Cannula 2 03/31/23 23:00 Nasal Cannula 2 03/31/23 20:00 Nasal Cannula 2 03/31/23 21:48 03/31/23 21:47 04/01/23 06:22 Room Air 04/01/23 05:00 Nasal Cannula 2 04/01/23 02:58 Nasal Cannula 2 04/01/23 01:00 Nasal Cannula 2 03/31/23 21:00 Nasal Cannula 2 03/31/23 20:00 Nasal Cannula 2 03/31/23 16:00 Nasal Cannula 03/31/23 19:39 Nasal Cannula 03/31/23 19:32 Nasal Cannula 2 28 03/31/23 19:32 03/31/23 19:31 03/31/23 16:00 03/31/23 16:34 Nasal Cannula 2 03/31/23 15:08 03/31/23 15:08 03/31/23 14:35 Nasal Cannula 2 03/31/23 13:00 Nasal Cannula 2 03/31/23 14:32 Nasal Cannula 2 03/31/23 12:51 Nasal Cannula 2 03/31/23 11:50 Nasal Cannula 2 03/31/23 10:50 03/31/23 10:50 03/31/23 10:50 Nasal Cannula 2 Intake and Output 03/31/23 04/01/23 04/01/23 19:59 03:59 11:59 Intake Total 60 / 60 Output Total 0 / 0 0 / 0 Balance 60 / 60 0 / 60 Intake: Intake, Oral Amount 60 / 60 Output: Output, Urine Amount 0 / 0 0 / 0 Other: Number of Unmeasured Voids 1 1 Weight 157 lb 2 oz 161 lb 5 oz Patient Weight 04/01/23 11:59 Weight 161 lb 5 oz Laboratory Results - last 24 hr 03/31/23 09:26: Troponin I 0.19 H 03/31/23 13:06: POC Glucose 268 H 03/31/23 20:36: POC Glucose 337 H* 04/01/23 05:12: POC Glucose 83 I & O for Labs for Last 24 Hours: Intake & Output 03/29/23 03/30/23 03/31/23 04/01/23 11:59 11:59 11:59 11:59 Intake Total 60 / 60 Output Total 0 / 0 Balance 60 60 Weight 160 lb 161 lb 5 oz Constitutional: Present no acute distress Respiratory: Present wheezes (Scattered bilaterally posteriorly) Cardiac: Present Reg Rate and Rhythm GI: Present soft and normal bowel sounds; Absent distention or tenderness Extremities: Present normal inspection; Absent tenderness or edema Assessment and Plan *Assessment and plan (1) Acute exacerbation of chronic obstructive pulmonary disease: Status: Acute Category: Medical Code(s): J44.1 - Chronic obstructive pulmonary disease with (acute) exacerbation (2) Elevated troponin: Status: Acute Category: Medical Code(s): R79.89 - Other specified abnormal findings of blood chemistry (3) Acute hypoxemic respiratory failure: Status: Acute Category: Medical Code(s): J96.01 - Acute respiratory failure with hypoxia (4) COPD (chronic obstructive pulmonary disease): Status: Acute Category: Medical Code(s): J44.9 - Chronic obstructive pulmonary disease, unspecified (5) PAD (peripheral artery disease): Status: Acute Category: Medical Code(s): I73.9 - Peripheral vascular disease, unspecified (6) Tobacco abuse: Status: Acute Category: Medical Code(s): Z72.0 - Tobacco use (7) Type 2 diabetes mellitus: Status: Chronic Qualifiers: Diabetes mellitus complication detail: with foot ulcer 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 Cardiology to see as well. Dr. Nelson entry - Saw patient, agree with above note.
[2023-04-01] MEDS: CEFTRIAXONE 1 GM 1 GM in 0.9 % SODIUM CHLORIDE 50 ML IV (08:44)
[2023-04-01] MEDS: predniSONE 20MG TAB 20 MG PO (08:44)
--- NOTE | 2023-04-01 09:00 | PC.NURSE ---
TURNED PT'S O2 DOWN TO 1L NC TOLERATING WELL. O2 NOTED AT 93-94%.
--- NOTE | 2023-04-01 09:46 | CA_ITS ---
APPROVED REPORT EXAM: Comprehensive 2D, Doppler, and color-flow Echocardiogram Roving Teller: Dayana Uribe RDCS Ht: 5 ft 6 in Wt: 161lbs BSA: 1.82 BP: 146/86 mmHg Indications: SOA, CP, COPD,HLP, HTN M-Mode Dimensions RVDd 2.40 cm (0.9-2.6) LA Diam 3.05 cm (1.9-4.0) LVDd 4.22 cm (3.5-5.7) LVDs 2.75 cm (3.5-5.7) IVSd 0.82 cm (0.6-1.1) PWd 1.11 cm (0.6-1.1) EF (Teich) 64.40% FS 34.80% EDV (Teich) 79.50 mL ESV (Teich) 28.30 mL LV Diastology E Decel Time 187 (160-240 msec) E/A Ratio 0.8 Aortic Valve CATY Index 1.56 cm2/m2 AoV Peak Wallace. 160.0 (50-130 cm/s) AO Peak GR. 10.20 mmHg AO Mean GR. 5.00 (<5 mmHg) AO VTI 31.1 (18-25 cm) CATY (VTI) 2.91 (2.5-4.5 cm2) Mitral Valve MV E Max Wallace. 87.0 (40-130 cm/s) MV A Velocity 104.0 (40-130 cm/s) E/A Ratio 0.83 MV PHT 55.0 ms Left Ventricle The left ventricle is normal size. The left ventricular systolic function is normal. The left ventricular ejection fraction is within the normal range. There is normal left ventricular wall thickness. There is normal LV segmental wall motion. The diastolic function is normal. LVEF is 60%. Right Ventricle The right ventricle is normal size. The right ventricular systolic function is normal. Atria The left atrium size is normal. The right atrium size is normal. There is no Doppler evidence of interatrial shunt. Aortic Valve The aortic valve is mildly thickened. There is no aortic valvular stenosis. Mild aortic regurgitation. Mitral Valve The mitral valve is normal in structure. No evidence of mitral valve stenosis. Mild mitral regurgitation. Tricuspid Valve The tricuspid valve leaflets are thin and pliable. Trace tricuspid regurgitation. There is insufficient TR jet to estimate RVSP. Pulmonic Valve The pulmonary valve is normal in structure. Trace pulmonic regurgitation. Great Vessels The aortic root is normal in size. The ascending aorta is normal in size. IVC is normal in size and collapses >50% with inspiration. Pericardium There is no pericardial effusion. Other Information Study Quality: Fair Conclusion Normal biventricular systolic function. Mild AI, mild MR. Electronically signed by : Jennifer Wills MD 04/02/2023 22:28:29
--- NOTE | 2023-04-01 09:47 | IR_ITS ---
APPROVED REPORT Patient Location: Inpatient PROCEDURES Left heart catheterization Left ventriculogram Selective coronary angiogram INDICATION Non-ST elevation myocardial infarction Informed consent was obtained prior to the procedure. COMPLICATIONS NONE Estimated Blood Loss: LESS THAN 10 ML TECHNIQUE One percent lidocaine used to anesthetize the right anterior aspect of the wrist. The right radial artery was accessed via the Seldinger technique. A 6 Faroese sheath was placed in the right radial artery. 2.5 mg of Verapamil, 800 mcg of nitroglycerin, 1mg Lidocaine and 5000 U Heparin were given through the arterial sheath. The papa catheter was also used to perform left heart catheterization, left ventriculogram and selective coronary angiogram. At the end of the procedure the sheath was removed good hemostasis was achieved using Traclet band, patient was transferred to the postop holding area in stable condition. ANGIOGRAPHIC RESULTS The left main artery Has a distal 30 to 40% stenosis The left anterior descending artery Is a large-caliber vessel with proximal 10 and 20% stenoses. There appears to be a ruptured plaque in the midportion with an active thrombus with a 60% stenosis. The circumflex artery Is a dominant vessel and gives rise to a moderate sized ramus intermedius which has a proximal 70 to 80% stenosis. First obtuse marginal artery is medium sized and has a proximal concentric 70 to 80% stenosis The right coronary artery Is nondominant and has a proximal 50% stenosis within additional proximal 60 to 70% stenosis The SHORE ventriculogram reveals Normal 65% The left ventricular end-diastolic pressure 20 mmHg IMPRESSION Coronary disease as described above Ruptured plaque at the junction between the proximal and mid LAD with an active thrombus accompanied by DARRIUS-3 flow Moderate distal left main disease Severe disease in a moderate to large ramus intermedius Severe disease in a moderate first obtuse marginal artery Moderate to severe disease in a proximal nondominant right coronary artery Normal ejection fraction Elevated LVEDP PLAN 1. It is reasonable to continue medical management at this time which should include dual antiplatelet therapy for 1 year. 2. LDL less than 55 to be achieved with high intensity statin 3. Avoidance of tobacco products 4. Aggressive medical management to maximize antianginal medications 5. If patient continues to experience angina CT surgery evaluation to consider coronary bypass surgery is reasonable. This can be performed as an outpatient basis unless recalcitrant angina pectoris Electronically signed by : Cliff Wallis MD 04/01/2023 15:50:37
--- NOTE | 2023-04-01 11:30 | PC.NURSE ---
pt at 94% on 5L NC tolerating well. dr Waters at bedside. Turned pt down to 3L NC. will reassess pt shortly to make sure she's tolerating well and adjust as needed.
--- NOTE | 2023-04-01 14:34 | P.CONCA_ITS ---
History of Present Illness History of Present Illness Consult date: 04/01/23 Requesting physician: Travis Nelson Consult reason: chest pain and shortness of breath Chief complaint: chest pain and soa History of present illness: 57-year-old white female with past medical history of COPD, insulin-dependent diabetes mellitus, PAD status post bilateral multiple toe amputations and 1/2 pack a day smoker presented to emergency department on Saturday with complaints of chest pain and worsening shortness of air. Patient reports she has shortness of air at baseline related to COPD but this was significantly worse than normal. Reports she attempted to go up the stairs and felt a squeezing sensation around her chest associated with the worsening shortness of breath that did not resolve with rest which prompted her to call EMS. Upon arrival to emergency department, patient's oxygen saturation was noted to be 84% on room air and to have diffuse wheezing throughout lung pascual. Chest x-ray negative for acute process. Initial EKG showed normal sinus rhythm at a rate of 101 without acute ischemic changes noted. Initial troponin was 0.10 trending up to 0.19. Patient was given DuoNebs and IV Solu-Medrol and admitted for a COPD exacerbation. Patient reports ongoing intermittent shortness of air and chest pain despite treatment for COPD exacerbation. A preliminary echo shows an ejection fraction which is normal and a mildly dilated RV. Other labs this morning as follow: WBC 8.3, hemoglobin 13.7, sodium 139, potassium 5, creatinine 1. [facility] Disclaimer: The information contained in this section may have been updated after the patient was seen, as this information can be updated by other users. Medical History (Updated 04/01/23 @ 14:43 by Etelvina Wang APRN) Acute kidney injury Cellulitis of left foot COPD (chronic obstructive pulmonary disease) Deviated nasal septum Diabetic microangiopathy Diabetic ulcer of right foot Gangrene of left foot Hearing Loss Hyperlipidemia Hypertension Left serous otitis media Noncompliance with medication regimen Occluded PICC line Osteomyelitis PAD (peripheral artery disease) Tinnitus of left ear Type 2 diabetes mellitus Surgical History (Updated 01/07/22 @ 00:00 by Katherin Tamayo) History of amputation of hallux History of amputation of toe History of cataract surgery Status post foot surgery Status post transmetatarsal amputation of left foot Family History Diabetes Family history of hypertension Family history of hyperlipidemia Social History Smoking Status: Current every day smoker tobacco type: cigarettes packs per day: 1 alcohol intake: never substance use type: denies use current occupational status: retired Travel in the last 8 weeks: None household members: family housing: house current occupational exposures/hazards: No caffeine: Yes Review of Systems Review of Systems Review of systems:: pertinent systems reviewed and negative unless documented below ENT Ears, Nose, Mouth, and Throat: Denies dizziness *Cardiovascular Cardiovascular: Reports chest pain and Reports dyspnea *Respiratory Respiratory: Reports dyspnea *Neurologic Neurologic: Denies dizziness Exam Data for Last 24 hours Vital signs and Labs for Last 24 Hours: Temp Pulse Resp BP Pulse Ox O2 Del Method O2 Flow Rate 98.2 F 83 18 164/73 H 90 L Nasal Cannula 2 04/01/23 12:00 04/01/23 12:00 04/01/23 12:00 04/01/23 12:00 04/01/23 12:00 04/01/23 13:20 04/01/23 13:20 FiO2 28 03/31/23 19:32 Laboratory Results - last 24 hr 03/31/23 20:36: POC Glucose 337 H* 04/01/23 05:12: POC Glucose 83 I & O for Last 24 hours: Intake & Output 03/29/23 03/30/23 03/31/23 04/01/23 23:59 23:59 23:59 23:59 Intake Total 60 / 60 270 / 270 Output Total 0 / 0 Balance 60 / 60 270 / 270 Weight 157 lb 2 oz 161 lb 5 oz Constitutional Constitutional: no acute distress *Routine Respiratory Exam Respiratory: Present CTA bilaterally and symmetric chest movement *Routine Cardiovascular Exam Cardiovascular: Present RRR, Normal S1 and Normal S2 *Routine Abdominal Exam Abdominal: Present soft and normoactive bowel sounds; Absent tenderness *Routine Extremities Exam Extremities: Present full ROM and normal capillary refill; Absent edema *Routine Skin Exam Skin: Present intact, dry and warm Detailed Neck Exam: Thyroids Thyroid: Absent bruit Meds Home Medications and Allergies Home Medications Medication Instructions Recorded Confirmed Type carvedilol 6.25 mg tablet 6.25 mg PO BID High blood pressure 05/29/21 03/31/23 History rosuvastatin 10 mg tablet 10 mg PO QODHS Cholesterol 08/24/21 03/31/23 History amlodipine 10 mg tablet 10 mg PO DAILY High blood pressure 08/29/21 03/31/23 History aspirin 81 mg tablet,delayed 81 mg PO DAILY heart health 08/29/21 03/31/23 History release insulin glargine 100 unit/mL (3 20 unit SQ HS Diabetes 08/29/21 03/31/23 History mL) subcutaneous pen lisinopril 40 mg tablet 40 mg PO DAILY High blood pressure 09/11/21 03/31/23 History metformin 500 mg tablet,extended 1,000 mg PO BID Diabetes 10/30/21 03/31/23 History release 24 hr New Prescriptions to Start Prescriptions: Allergies Allergy/AdvReac Type Severity Reaction Status Date / Time daptomycin Allergy Severe causes Verified 11/27/21 07:17 extreme muscle spasms vancomycin Allergy Verified 11/27/21 07:17 Assessment and Plan *Assessment and plan (1) Hyperlipidemia: Status: Chronic Category: Medical Code(s): E78.5 - Hyperlipidemia, unspecified (2) Hypertension: Status: Chronic Category: Medical Code(s): I10 - Essential (primary) hypertension (3) Type 2 diabetes mellitus: Status: Chronic Qualifiers: Diabetes mellitus alf insulin use: with alf use Diabetes mellitus complication detail: with foot ulcer Qualified Code(s): E11.621 - Type 2 diabetes mellitus with foot ulcer; L97.509 - Non-pressure chronic ulcer of other part of unspecified foot with unspecified severity; 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 Category: Medical Code(s): E11.9 - Type 2 diabetes mellitus without complications (4) PAD (peripheral artery disease): Status: Acute Category: Medical Code(s): I73.9 - Peripheral vascular disease, unspecified (5) Acute hypoxemic respiratory failure: Status: Acute Category: Medical Code(s): J96.01 - Acute respiratory failure with hypoxia (6) Acute exacerbation of chronic obstructive pulmonary disease: Status: Acute Category: Medical Code(s): J44.1 - Chronic obstructive pulmonary disease with (acute) exacerbation (7) NSTEMI (non-ST elevated myocardial infarction): Status: Acute Category: Medical Code(s): I21.4 - Non-ST elevation (NSTEMI) myocardial infarction Plan NSTEMI -Troponin 0.10?0.19 -EKG is negative for acute ischemic changes -Given patient's elevated troponin and multiple risk factors including insulin-dependent diabetes mellitus and tobacco use we will proceed with left heart catheterization to further evaluate for coronary artery disease. Discussed risk versus benefits with patient she is agreeable. -Patient will be loaded with 324 mg of aspirin x 1 and Lovenox 1 mg/kg subq twice daily -Continue atorvastatin 40 mg p.o. daily, carvedilol 6.25 mg p.o. twice daily and aspirin 81 mg daily -Preliminary echo shows a normal ejection fraction with a mildly dilated RV, official read is pending -Diurese with Lasix 40 mg IV x 1 Acute on chronic COPD exacerbation -Defer to primary service Insulin-dependent diabetes mellitus -Recommend addition of Ozempic/jardiance prior to discharge -Defer management to PCP Current tobacco use Smoking cessation advised Hyperlipidemia -LDL goal less than 55, continue atorvastatin 40 mg p.o. daily Hypertension -BP is elevated with systolic in the 160s. Continue lisinopril 40 mg daily and carvedilol 6.25 mg p.o. twice daily. -Will give one-time dose of Lasix 40 mg IV CV summary 04/01/2023: We will proceed with left heart catheterization today. Official echocardiogram is pending.
[2023-04-01] MEDS: HEPARIN 1,000 UNITS/ML 10ML VIAL (CATH LAB) 10000 UNIT IV (15:47)
[2023-04-01] MEDS: diphenhydrAMINE 50MG/ML VIAL 50 MG IV (15:47)
[2023-04-01] MEDS: NITROGLYCERIN 800MCG/8ML SYR (CATH LAB) 800 MCG IA (15:47)
[2023-04-01] MEDS: LIDOCAINE 1% 10ML MDV 20 ML IJ (15:47)
[2023-04-01] MEDS: VERAPAMIL 2.5MG/ML 2ML VIAL 2.5 MG IV (15:47)
[2023-04-01] MEDS: HEPARIN 1,000 UNITS/500ML NS (CATH LAB) 3000 UNIT IV (15:48)
[2023-04-01] MEDS: 0.9 % SODIUM CHLORIDE 500 ML 25 ML IV (15:48)
[2023-04-01] MEDS: FENTANYL 100MCG/2ML VIAL 50 MCG IV (15:48)
[2023-04-01] MEDS: MIDAZOLAM HCL 1MG/1ML 5ML VIAL 1 MG IV (15:48)
[2023-04-01] MEDS: IOPAMIDOL-370 (76%);100ML BOTTLE 90 ML IV (16:02)
[2023-04-01] MEDS: ASPIRIN EC 81MG TABLET 243 MG PO (16:44)
[2023-04-01] MEDS: humaLOG 100 UNITS/ML 3ML VIAL (SSI) SQ ×2 (16:47→22:15)
--- NOTE | 2023-04-01 17:53 | PC.NURSE ---
A&OX4. PT HAS TOLERATED 2L NC WELL. ATTEMPTED TO WEAN TO 1L AND WAS UNABLE TO DUE TO LOW O2. RESPIRATIONS REGULAR AND UNLABORED. DIMINISHED LUNG SOUNDS NOTED THROUGHOUT ALONG WITH EXPIRATORY RHONCHI. PT HAS A DRY, HACKING COUGH WITH SOME SPUTUM NOTED. SPUTUM SAMPLE SENT TO LAB. PT HAS DENIED ANY PAIN THUS FAR. ACTIVE BOWEL SOUNDS HEARD IN ALL 4 QUADRANTS. SOFT AND NONTENDER ABDOMEN. NO BM THUS FAR. PT VOIDS PER BATHROOM WITH STANDBY ASSISTANCE. CLEAR YELLOW URINE NOTED. PT RECEIVED A BATH TODAY. PT HAD A HEART CATH. NO STENTS PLACED. MEDICAL MANAGEMENT PER MD. RADIAL BAND CURRENTLY ON. VSS. +1 PULSES NOTED THROUGHOUT. PT HAS REMAINED ON TELE. BED IN LOWEST POSITION. CALL LIGHT WITHIN REACH.
[2023-04-01 22:14] LABS: POC Glucose,Bedside 153 (70-110)
[2023-04-02] VITALS (14 sets, daily range): BP systolic 110–142; BP diastolic 53–65; PULSE 70–87; RESP 14–18; TEMP 36.6–36.9; O2SAT 88–94; BMI 26.0
[2023-04-02] MEDS: IPRATROPIUM/ALBUTEROL 3 ML NEB IH ×6 (02:34→21:26)
--- NOTE | 2023-04-02 05:08 | PC.NURSE ---
Patient VS WNL using 3L NC O2. BS 153 covered with 2 units. Pt has wheezing throughout lung bases which improves with treatments, continues on 3L NC & has a non-productive this shift. No s/s of acute distress noted. Patient had 1 dose of Promethazine for c/o nausea; medications effective. Patient currently resting in bed with eyes closed.
--- NOTE | 2023-04-02 05:19 | PC.NURSE ---
Patient VS WNL using 3L NC O2. Pt has wheezing throughout lung bases which improves with treatments, continues on 3L NC & has a non-productive this shift. No s/s of acute distress noted. Patient had 1 dose of Promethazine for c/o nausea; medications effective. Patient currently resting in bed with eyes closed.
[2023-04-02 05:32] LABS: POC Glucose,Bedside 98 (70-110)
[2023-04-02 06:47] LABS: Basophils % 0.7 % (0.1-2.0); Eosinophils # 0.1 K/mm3 (0.0-0.4); Eosinophils % 2.1 % (0.1-12.0); Hematocrit 32.6 % (37.0-47.0); Hemoglobin 10.9 g/dL (12.2-16.2); Lymphocytes # 1.6 K/mm3 (0.7-4.5); Lymphocytes % 30.1 % (10-50); Mean Corpuscular HGB Conc 33.2 g/dL (31.8-35.4); Mean Corpuscular Hemoglobin 27.9 pg (27.0-31.2); Mean Platelet Volume 8.2 fl (7.4-10.4); Monocytes # 0.4 K/mm3 (0.1-1.0); Monocytes % 7.7 % (1.7-9.3); Neutrophils # 3.2 K/mm3 (1.8-7.8); Neutrophils % 59.3 % (37.0-80.0); Platelet Count 208 K/mm3 (142-424); Red Blood Count 3.88 M/mm3 (4.20-5.40); Red Cell Distribution Width 14.3 % (11.5-17.5); White Blood Count 5.4 K/mm3 (4.8-10.8)
[2023-04-02 06:55] LABS: Chloride 107 mmol/L (98-107); Potassium 4.7 mmoL/L (3.5-5.1); Sodium 137 mmol/L (136-145)
[2023-04-02 06:58] LABS: Anion Gap 7.7 mEq/L (5-15); Blood Urea Nitrogen 33 mg/dl (7-17); Carbon Dioxide 27 mmol/L (22.0-30.0); Creatinine Clearance Estimated 54 mL/min (50-200); Estimated Glomerular Filt Rate 42 ml/min (>60); GFR (African American) 51 ML/MIN (>60)
[2023-04-02 06:59] LABS: Calcium 9.5 mg/dl (8.4-10.2); Glucose 93 mg/dl (74-100)
--- NOTE | 2023-04-02 07:55 | P.PN_ITS ---
Subjective *Date: 04/02/23 *Time: 08:54 Interval history: Patient continues with a cough which is sometimes productive. She states she cannot tell any difference in her breathing. Shortness of breath with exertion. She does ambulate to the bathroom. She denies chest pain. She relates that her cardiac cath showed a healthy heart. She is eating well. Laboratory data this morning shows hemoglobin of 10.9 hematocrit 32.6 with a white blood cell count 5400. Blood chemistry showed BUN of 33 and a creatinine of 1.3. Electrolytes are normal. Cardiac cath completed yesterday with the following results: ANGIOGRAPHIC RESULTS The left main artery Has a distal 30 to 40% stenosis The left anterior descending artery Is a large-caliber vessel with proximal 10 and 20% stenoses. There appears to be a ruptured plaque in the midportion with an active thrombus with a 60% stenosis. The circumflex artery Is a dominant vessel and gives rise to a moderate sized ramus intermedius which has a proximal 70 to 80% stenosis. First obtuse marginal artery is medium sized and has a proximal concentric 70 to 80% stenosis The right coronary artery Is nondominant and has a proximal 50% stenosis within additional proximal 60 to 70% stenosis The SHORE ventriculogram reveals Normal 65% The left ventricular end-diastolic pressure 20 mmHg IMPRESSION Coronary disease as described above Ruptured plaque at the junction between the proximal and mid LAD with an active thrombus accompanied by DARRIUS-3 flow Moderate distal left main disease Severe disease in a moderate to large ramus intermedius Severe disease in a moderate first obtuse marginal artery Moderate to severe disease in a proximal nondominant right coronary artery Normal ejection fraction Elevated LVEDP Medical Exam Vital signs and Labs for Last 24 Hours: Vital Signs Temp Pulse Pulse Resp BP Pulse Ox O2 Del Method 04/02/23 06:43 Nasal Cannula 04/02/23 06:24 81 04/02/23 06:24 84 04/02/23 06:24 90 L Nasal Cannula 04/02/23 05:00 Nasal Cannula 04/02/23 04:00 70 04/02/23 04:00 98.0 F 70 14 118/57 L 91 L Nasal Cannula 04/02/23 03:00 Nasal Cannula 04/02/23 02:43 72 04/02/23 02:43 74 04/02/23 01:00 Nasal Cannula 04/02/23 00:00 98.0 F 71 14 112/62 94 L Nasal Cannula 04/02/23 00:00 70 04/01/23 23:05 73 14 132/57 L 96 Nasal Cannula 04/01/23 22:46 Nasal Cannula 04/01/23 20:00 75 04/01/23 21:00 Nasal Cannula 04/01/23 20:00 93 L Nasal Cannula 04/01/23 22:05 74 16 107/45 L 93 L Nasal Cannula 04/01/23 21:05 73 18 117/52 L 91 L Nasal Cannula 04/01/23 20:05 98.0 F 75 16 101/52 L 93 L Nasal Cannula 04/01/23 21:14 83 04/01/23 21:14 73 04/01/23 19:05 75 16 147/58 H 99 Nasal Cannula 04/01/23 18:35 70 16 107/51 L 92 L Nasal Cannula 04/01/23 18:05 70 18 133/51 L 93 L Nasal Cannula 04/01/23 17:35 71 18 130/52 L 94 L Nasal Cannula 04/01/23 17:05 65 16 107/48 L 91 L Nasal Cannula 04/01/23 16:50 67 16 97/49 L 93 L Nasal Cannula 04/01/23 16:35 70 16 99/56 L 91 L Nasal Cannula 04/01/23 16:20 97.9 F 80 18 126/57 L 93 L Nasal Cannula 04/01/23 18:38 Nasal Cannula 04/01/23 18:41 73 04/01/23 18:41 72 04/01/23 18:41 92 L Nasal Cannula 04/01/23 17:05 Nasal Cannula 04/01/23 12:00 80 04/01/23 08:00 80 04/01/23 16:05 90 20 97/58 L 92 L Room Air 04/01/23 16:00 88 16 97/58 L 90 L Room Air 04/01/23 15:55 98 F 80 83 20 80/61 L 91 L Room Air 04/01/23 15:10 Nasal Cannula 04/01/23 13:20 Nasal Cannula 04/01/23 12:00 98.2 F 83 18 164/73 H 90 L Nasal Cannula 04/01/23 11:10 Nasal Cannula 04/01/23 09:10 Nasal Cannula 04/01/23 09:21 67 04/01/23 09:21 69 04/01/23 08:00 98.1 F 77 18 127/53 L 95 Nasal Cannula O2 Flow Rate 04/02/23 06:43 1 04/02/23 06:24 04/02/23 06:24 04/02/23 06:24 1 04/02/23 05:00 1 04/02/23 04:00 04/02/23 04:00 04/02/23 03:00 1 04/02/23 02:43 04/02/23 02:43 04/02/23 01:00 1 04/02/23 00:00 04/02/23 00:00 04/01/23 23:05 2 04/01/23 22:46 2 04/01/23 20:00 04/01/23 21:00 2 04/01/23 20:00 2 04/01/23 22:05 2 04/01/23 21:05 2 04/01/23 20:05 2 04/01/23 21:14 04/01/23 21:14 04/01/23 19:05 2 04/01/23 18:35 2 04/01/23 18:05 2 04/01/23 17:35 2 04/01/23 17:05 2 04/01/23 16:50 2 04/01/23 16:35 2 04/01/23 16:20 2 04/01/23 18:38 2 04/01/23 18:41 04/01/23 18:41 04/01/23 18:41 2 04/01/23 17:05 2 04/01/23 12:00 04/01/23 08:00 04/01/23 16:05 04/01/23 16:00 04/01/23 15:55 04/01/23 15:10 2 04/01/23 13:20 2 04/01/23 12:00 2 04/01/23 11:10 2 04/01/23 09:10 2 04/01/23 09:21 04/01/23 09:21 04/01/23 08:00 2 Intake and Output 04/01/23 04/02/23 04/02/23 19:59 03:59 11:59 Intake Total 360 / 360 Output Total 0 / 0 0 / 0 0 / 0 Balance 360 / 360 0 / 360 0 / 360 Intake: Intake, Oral Amount 360 / 360 Output: Output, Urine Amount 0 / 0 0 / 0 0 / 0 Other: Number of Voids 0 Number of Unmeasured Voids 1 1 Weight 162 lb 3.2 oz Patient Weight 04/02/23 11:59 Weight 162 lb 3.2 oz Laboratory Results - last 24 hr 04/01/23 21:56: POC Glucose 153 H 04/02/23 05:25: POC Glucose 98 04/02/23 06:13: WBC 5.4 D, RBC 3.88 L, Hgb 10.9 L, Hct 32.6 L, MCV 84.0, MCH 27.9, MCHC 33.2, RDW 14.3, Plt Count 208, MPV 8.2, Neut % (Auto) 59.3, Lymph % (Auto) 30.1, [place] % (Auto) 7.7, Eos % (Auto) 2.1, Baso % (Auto) 0.7, Neut # (Auto) 3.2, Lymph # (Auto) 1.6, [place] # (Auto) 0.4, Eos # (Auto) 0.1, Baso # (Auto) 0.0, Sodium 137, Potassium 4.7, Chloride 107, Carbon Dioxide 27, Anion Gap 7.7, BUN 33 H D, Creatinine 1.30 H D, Estimated Creat Clear 54, Estimated GFR 42 L, Est GFR ( Amer) 51 L D, Glucose 93, Calcium 9.5 I & O for Labs for Last 24 Hours: Intake & Output 03/30/23 03/31/23 04/01/23 04/02/23 11:59 11:59 11:59 11:59 Intake Total 330 / 330 360 / 360 Output Total 0 / 0 0 / 0 Balance 330 / 330 360 / 360 Weight 160 lb 161 lb 5 oz 162 lb 3.2 oz Constitutional: Present no acute distress Comment:: Sitting up in the bed and appears most comfortable Respiratory: Present decreased breath sounds (Posteriorly) and crackles (Scattered in bases); Absent wheezes Cardiac: Present Reg Rate and Rhythm GI: Present soft and normal bowel sounds; Absent distention or tenderness Extremities: Absent edema Comment:: Surgical deformities Neuro: Present alert and oriented x 3 Assessment and Plan *Assessment and plan (1) Hyperlipidemia: Status: Chronic Category: Medical Code(s): E78.5 - Hyperlipidemia, unspecified (2) Hypertension: Status: Chronic Category: Medical Code(s): I10 - Essential (primary) hypertension (3) Type 2 diabetes mellitus: Status: Chronic Qualifiers: Diabetes mellitus complication detail: with foot ulcer Diabetes mellitus custodial insulin use: with custodial use Qualified Code(s): E11.621 - Type 2 diabetes mellitus with foot ulcer; L97.509 - Non-pressure chronic ulcer of other part of unspecified foot with unspecified severity; 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 Category: Medical Code(s): E11.9 - Type 2 diabetes mellitus without complications (4) PAD (peripheral artery disease): Status: Acute Category: Medical Code(s): I73.9 - Peripheral vascular disease, unspecified (5) Acute hypoxemic respiratory failure: Status: Acute Category: Medical Code(s): J96.01 - Acute respiratory failure with hypoxia (6) Acute exacerbation of chronic obstructive pulmonary disease: Status: Acute Category: Medical Code(s): J44.1 - Chronic obstructive pulmonary disease with (acute) exacerbation (7) NSTEMI (non-ST elevated myocardial infarction): Status: Acute Category: Medical Code(s): I21.4 - Non-ST elevation (NSTEMI) myocardial infarction (8) Tobacco abuse: Status: Acute Category: Medical Code(s): Z72.0 - Tobacco use Plan Today patient does not admit to heart disease. She states she is just going to have to take a blood thinner. Cardiology to follow today. Discussed smoking cessation. She is not committed at this time. Wean from oxygen. Dr. Nelson entry - Saw patient, agree with above note. Probable discharge later today.
[2023-04-02] MEDS: predniSONE 20MG TAB 20 MG PO (08:16)
[2023-04-02] MEDS: CEFTRIAXONE 1 GM 1 GM in 0.9 % SODIUM CHLORIDE 50 ML IV (08:16)
[2023-04-02] MEDS: CARVEDILOL 6.25MG TABLET 6.25 MG PO ×2 (08:16→20:09)
[2023-04-02] MEDS: LISINOPRIL 20MG TABLET 40 MG PO (08:16)
[2023-04-02] MEDS: ASPIRIN 81MG CHEWABLE TABLET 81 MG PO (08:16)
[2023-04-02] MEDS: METFORMIN 500MG TABLET 1000 MG PO ×2 (08:17→17:30)
--- NOTE | 2023-04-02 10:48 | P.PN_ITS ---
Subjective Subjective Date: 04/02/23 Time: 08:00 Principal diagnosis: copd exacerbation Interval history: Patient is status post left heart catheterization see note below. Patient denies chest pain, reports ongoing shortness of air which is improving. Morning labs reviewed. Left heart catheterization 04/01/2023: IMPRESSION Coronary disease as described above Ruptured plaque at the junction between the proximal and mid LAD with an active thrombus accompanied by DARRIUS-3 flow Moderate distal left main disease Severe disease in a moderate to large ramus intermedius Severe disease in a moderate first obtuse marginal artery Moderate to severe disease in a proximal nondominant right coronary artery Normal ejection fraction Elevated LVEDP PLAN 1. It is reasonable to continue medical management at this time which should include dual antiplatelet therapy for 1 year. 2. LDL less than 55 to be achieved with high intensity statin 3. Avoidance of tobacco products 4. Aggressive medical management to maximize antianginal medications 5. If patient continues to experience angina CT surgery evaluation to consider coronary bypass surgery is reasonable. This can be performed as an outpatient basis unless recalcitrant angina pectoris Exam Data for Last 24 hours Vital signs and Labs for Last 24 Hours: Temp Pulse Resp BP Pulse Ox O2 Del Method O2 Flow Rate 98.4 F 82 17 142/65 H 88 L Room Air 2 04/02/23 08:00 04/02/23 10:00 04/02/23 08:00 04/02/23 08:00 04/02/23 10:00 04/02/23 10:00 04/02/23 10:00 FiO2 28 03/31/23 19:32 Laboratory Results - last 24 hr 04/01/23 21:56: POC Glucose 153 H 04/02/23 05:25: POC Glucose 98 04/02/23 06:13: WBC 5.4 D, RBC 3.88 L, Hgb 10.9 L, Hct 32.6 L, MCV 84.0, MCH 27.9, MCHC 33.2, RDW 14.3, Plt Count 208, MPV 8.2, Neut % (Auto) 59.3, Lymph % (Auto) 30.1, [place] % (Auto) 7.7, Eos % (Auto) 2.1, Baso % (Auto) 0.7, Neut # (Auto) 3.2, Lymph # (Auto) 1.6, [place] # (Auto) 0.4, Eos # (Auto) 0.1, Baso # (Auto) 0.0, Sodium 137, Potassium 4.7, Chloride 107, Carbon Dioxide 27, Anion Gap 7.7, BUN 33 H D, Creatinine 1.30 H D, Estimated Creat Clear 54, Estimated GFR 42 L, Est GFR ( Amer) 51 L D, Glucose 93, Calcium 9.5 I & O for Last 24 hours: Intake & Output 03/30/23 03/31/23 04/01/23 04/02/23 23:59 23:59 23:59 23:59 Intake Total 60 / 60 630 / 630 600 / 600 Output Total 0 / 0 0 / 0 Balance 60 / 60 630 / 630 600 / 600 Weight 157 lb 2 oz 161 lb 5 oz 162 lb 3.2 oz Constitutional Constitutional: no acute distress *Routine Respiratory Exam Respiratory: Present symmetric chest movement *Routine Cardiovascular Exam Cardiovascular: Present RRR, Normal S1 and Normal S2 *Routine Abdominal Exam Abdominal: Present soft and normoactive bowel sounds; Absent tenderness *Routine Extremities Exam Extremities: Present full ROM and normal capillary refill; Absent edema *Routine Skin Exam Skin: Present intact, dry and warm Detailed Neck Exam: Thyroids Thyroid: Absent bruit Progress Note: A&P Assessment and plan (1) Hyperlipidemia: Status: Chronic (2) Hypertension: Status: Chronic (3) Type 2 diabetes mellitus: Status: Chronic (4) PAD (peripheral artery disease): Status: Acute (5) Acute hypoxemic respiratory failure: Status: Acute (6) Acute exacerbation of chronic obstructive pulmonary disease: Status: Acute (7) NSTEMI (non-ST elevated myocardial infarction): Status: Acute (8) Tobacco abuse: Status: Acute Assessment and Plan Assessment and Plan for All Diagnoses:: NSTEMI CAD -[facility] 01/2024: Medical management heart cath see report above -Continue DAPT therapy with aspirin 81 mg daily and Plavix 75 mg daily, high- dose statin and beta-ab. Will start patient on Ranexa 500 mg p.o. twice daily. -If patient continues to experience angina patient should be referred for CT surgery evaluation for possible bypass surgery. -Preliminary echocardiogram shows an normal ejection fraction, official read is pending Insulin-dependent diabetes mellitus -Start Jardiance -A1c is 6.9 -Recommend stopping metformin and starting ozempic outpatient Current tobacco use COPD -Recommend patient follows outpatient with pulmonology -Smoking cessation advised Hyperlipidemia -LDL goal less than 55, LDL is 80. Increase atorvastatin to 80 mg p.o. daily Hypertension -Stable, continue susanna and bb CV summary 04/01/2023: Patient is CV stable, cards will sign off. Please continue meds as outlined below. Have patient follow up in cardiology clinic in 1 week for re-evaluation. Consider addition of ozempic outpatient. CV meds Aspirin 81 mg p.o. daily Plavix 75 mg p.o. daily Atorvastatin 80 mg p.o. daily Coreg 6.25 mg p.o. twice daily Jardiance 10 mg p.o. daily Lisinopril 40mg p.o. daily Ranexa 500mg p.o. twice daily
--- NOTE | 2023-04-02 11:01 | XR_ITS ---
FINAL REPORT CLINICAL HISTORY: soa COMPARISON: 03/31/2023 FINDINGS: SINGLE-VIEW CHEST The heart size is normal. The mediastinum is normal. The lungs are clear. There is no pneumothorax. IMPRESSION: No acute cardiopulmonary process. Reviewed, Interpreted and Dictated by Brien Jacobs III, MD Transcribed by Debbie Cottrell Authenticated and [facility]
[2023-04-02 11:33] LABS: Direct LDL Cholesterol 80.27 mg/dL (100-129)
[2023-04-02] MEDS: humaLOG 100 UNITS/ML 3ML VIAL (SSI) SQ ×3 (11:43→20:10)
[2023-04-02] MEDS: RANOLAZINE 500MG ER TABLET 500 MG PO ×2 (12:33→20:09)
[2023-04-02] MEDS: CLOPIDOGREL 75MG TAB 75 MG PO (12:33)
[2023-04-02] MEDS: EMPAGLIFLOZIN 10MG TABLET 10 MG PO (12:33)
[2023-04-02 12:47] LABS: Hemoglobin A1C 6.9 % (4.0-6.0)
[2023-04-02] MEDS: FUROSEMIDE 40MG/4ML VIAL 40 MG IV (16:22)
[2023-04-02] MEDS: ATORVASTATIN 40MG TABLET 80 MG PO (20:10)
[2023-04-02 20:14] LABS: POC Glucose,Bedside 234 (70-110)
[2023-04-03] VITALS (8 sets, daily range): BP systolic 106–140; BP diastolic 56–75; PULSE 72–82; RESP 17–20; TEMP 36.6; O2SAT 83–92; BMI 25.7
[2023-04-03] MEDS: IPRATROPIUM/ALBUTEROL 3 ML NEB IH ×3 (01:50→09:51)
--- NOTE | 2023-04-03 04:06 | PC.NURSE ---
remains on 1LNC. otherwise no acute changes and rested well t/o night
[2023-04-03] MEDS: METFORMIN 500MG TABLET 1000 MG PO (07:16)
--- NOTE | 2023-04-03 08:07 | EXP.ACUTE.PN ---
Subjective *Date: 04/03/23 *Time: 08:39 Interval history: Patient is feeling well today. No new complaints. Her oxygen dropped into the 80's when decreased so she had to be placed back on 2L. She denies any pain. Still with a cough and some wheezing. Medical Exam Vital signs and Labs for Last 24 Hours: Vital Signs Temp Pulse Pulse Resp BP Pulse Ox O2 Del Method 04/03/23 07:36 97.9 F 75 17 106/56 L 83 L Room Air 04/03/23 07:33 85 L Room Air 04/03/23 05:59 79 04/03/23 05:59 82 04/03/23 05:59 90 L Nasal Cannula 04/03/23 04:00 97.9 F 77 18 140/75 92 L Nasal Cannula 04/03/23 06:25 Nasal Cannula 04/03/23 05:00 Nasal Cannula 04/03/23 04:00 73 04/03/23 03:00 Nasal Cannula 04/03/23 00:00 72 04/03/23 01:51 82 04/03/23 01:51 82 04/03/23 00:00 97.9 F 73 20 124/57 L 92 L Nasal Cannula 04/03/23 01:00 Nasal Cannula 04/02/23 22:25 Nasal Cannula 04/02/23 21:00 Nasal Cannula 04/02/23 20:00 77 04/02/23 21:26 70 04/02/23 21:26 70 04/02/23 20:00 98 F 76 18 114/55 L 90 L Nasal Cannula 04/02/23 19:13 Nasal Cannula 04/02/23 18:46 Nasal Cannula 04/02/23 18:00 87 04/02/23 18:00 87 04/02/23 18:00 92 L Nasal Cannula 04/02/23 16:00 80 04/02/23 12:00 70 04/02/23 17:20 Nasal Cannula 04/02/23 15:00 Nasal Cannula 04/02/23 15:12 98.0 F 76 18 112/53 L 90 L Nasal Cannula 04/02/23 14:38 78 04/02/23 14:38 82 04/02/23 13:15 Nasal Cannula 04/02/23 11:18 Nasal Cannula 04/02/23 11:15 97.9 F 74 18 110/60 89 L Nasal Cannula 04/02/23 10:00 82 04/02/23 10:00 82 04/02/23 10:00 88 L Room Air 04/02/23 09:00 Room Air 04/02/23 08:17 Room Air O2 Flow Rate 04/03/23 07:36 04/03/23 07:33 04/03/23 05:59 04/03/23 05:59 04/03/23 05:59 2 04/03/23 04:00 1 04/03/23 06:25 1 04/03/23 05:00 1 04/03/23 04:00 04/03/23 03:00 1 04/03/23 00:00 04/03/23 01:51 04/03/23 01:51 04/03/23 00:00 04/03/23 01:00 1 04/02/23 22:25 1 04/02/23 21:00 1 04/02/23 20:00 04/02/23 21:26 04/02/23 21:26 04/02/23 20:00 2 04/02/23 19:13 1 04/02/23 18:46 1 04/02/23 18:00 04/02/23 18:00 04/02/23 18:00 2 04/02/23 16:00 04/02/23 12:00 04/02/23 17:20 1 04/02/23 15:00 1 04/02/23 15:12 2 04/02/23 14:38 04/02/23 14:38 04/02/23 13:15 1 04/02/23 11:18 1 04/02/23 11:15 1.5 04/02/23 10:00 04/02/23 10:00 04/02/23 10:00 2 04/02/23 09:00 04/02/23 08:17 Intake and Output 04/02/23 04/03/23 04/03/23 19:59 03:59 11:59 Intake Total 1200 / 2040 480 / 2040 360 / 2040 Output Total 850 / 2100 800 / 2100 450 / 2100 Balance 350 / -60 -320 / -60 -90 / -60 Intake: Intake, Oral Amount 1200 / 2040 480 / 2040 360 / 2040 Output: Output, Urine Amount 850 / 2100 800 / 2100 450 / 2100 Other: Number of Voids 0 Number of Unmeasured Voids 1 Weight 160 lb 6.4 oz Patient Weight 04/03/23 11:59 Weight 160 lb 6.4 oz Laboratory Results - last 24 hr 04/02/23 06:13: Hemoglobin A1c 6.9 H, LDL Cholesterol Direct 80.27 L 04/02/23 20:06: POC Glucose 234 H I & O for Labs for Last 24 Hours: Intake & Output 03/31/23 04/01/23 04/02/23 04/03/23 11:59 11:59 11:59 11:59 Intake Total 330 / 330 960 / 960 2039 Output Total 0 / 0 0 / 0 2099 Balance 330 / 330 960 / 960 -60 / -60 Weight 160 lb 161 lb 5 oz 162 lb 3.2 oz 160 lb 6.4 oz Constitutional: Present no acute distress Respiratory: Present wheezes Cardiac: Present Reg Rate and Rhythm GI: Present soft; Absent distention, tenderness or guarding Comment:: surgical deformities Skin: Present intact Neuro: Present alert, awake and oriented x 3 Assessment and Plan *Assessment and plan (1) Acute hypoxemic respiratory failure: Status: Acute Category: Medical Code(s): J96.01 - Acute respiratory failure with hypoxia (2) NSTEMI (non-ST elevated myocardial infarction): Status: Acute Category: Medical Code(s): I21.4 - Non-ST elevation (NSTEMI) myocardial infarction (3) Acute exacerbation of chronic obstructive pulmonary disease: Status: Acute Category: Medical Code(s): J44.1 - Chronic obstructive pulmonary disease with (acute) exacerbation (4) Hyperlipidemia: Status: Chronic Category: Medical Code(s): E78.5 - Hyperlipidemia, unspecified (5) Hypertension: Status: Chronic Category: Medical Code(s): I10 - Essential (primary) hypertension (6) Type 2 diabetes mellitus: Status: Chronic Qualifiers: Diabetes mellitus complication detail: with foot ulcer Diabetes mellitus salvage determiner insulin use: with salvage determiner use Qualified Code(s): E11.621 - Type 2 diabetes mellitus with foot ulcer; L97.509 - Non-pressure chronic ulcer of other part of unspecified foot with unspecified severity; Z79.4 - group home (current) use of insulin Category: Medical Code(s): E11.9 - Type 2 diabetes mellitus without complications (7) PAD (peripheral artery disease): Status: Acute Category: Medical Code(s): I73.9 - Peripheral vascular disease, unspecified (8) Tobacco abuse: Status: Acute Category: Medical Code(s): Z72.0 - Tobacco use (9) CAD (coronary artery disease): Status: Acute Category: Medical Code(s): I25.10 - Atherosclerotic heart disease of [place] coronary artery without angina pectoris Plan Cardiology would like for the patient to f/u in their office in 1 week and they want to consider ozempic as an outpatient. Unable to wean oxygen. May have to discharge on oxygen. Will discuss with Dr. Nelson. Dr. Nelson entry - Saw patient, agree with above note. OK to to discharge today, see orders.
[2023-04-03] MEDS: CEFTRIAXONE 1 GM 1 GM in 0.9 % SODIUM CHLORIDE 50 ML IV (09:13)
[2023-04-03] MEDS: RANOLAZINE 500MG ER TABLET 500 MG PO (09:13)
[2023-04-03] MEDS: predniSONE 20MG TAB 20 MG PO (09:13)
[2023-04-03] MEDS: CARVEDILOL 6.25MG TABLET 6.25 MG PO (09:13)
[2023-04-03] MEDS: EMPAGLIFLOZIN 10MG TABLET 10 MG PO (09:13)
[2023-04-03] MEDS: ASPIRIN 81MG CHEWABLE TABLET 81 MG PO (09:13)
[2023-04-03] MEDS: CLOPIDOGREL 75MG TAB 75 MG PO (09:13)
[2023-04-03] MEDS: LISINOPRIL 20MG TABLET 40 MG PO (09:14)
--- NOTE | 2023-04-03 09:41 | CARE MANAGER ---
Patient will require supplemental home O2 at discharge. [facility] and form placed on chart. [facility] will deliver portable to hospital prior to discharge.
--- NOTE | 2023-04-03 09:45 | CARE MANAGER ---
Patient's room air saturation was 83% @ rest this morning.
--- NOTE | 2023-04-03 12:43 | SW/DCPLANNER ---
I have arranged [employer] for this confirmation #[id number].
--- NOTE | 2023-04-04 14:28 | CARE MANAGER ---
CM called and spoke with patient's daughter regarding recent discharge. She was aware of scheduled f/u appts, and stated that patient has made changes to her medications that were prescribed at discharge. No concerns voiced at time of call.
--- NOTE | 2023-04-07 23:06 | P.DS_ITS ---
General Admission date:: 03/31/23 Discharge date: 04/03/23 HPI HPI HPI: Ms. Negro is a 57 year old female patient of [facility], who see Dr. Driver for her primary care. She presented to [facility] ER overnight complaining of chest pain associated with shortness of breath. She states that she had been exposed to a sick family member a few days ago and felt like she was getting a cold. She has had some cough. Hospital Course Hospital Course Hospital Course: The patient was admitted and started on antibiotics and steroids. A troponin was rechecked. By 04/01/2023, she continued with shortness of breath but was able to ambulate in the room. Cardiology was consulted. Her troponins were elevated and cardiology wanted to proceed with a left heart cath. Her preliminary echo showed a normal ejection fraction with a mildly dilated right ventricle. She was given 40 mg of IV Lasix and cardiology recommended the addition of Ozempic/Jardiance prior to discharge. Her heart cath showed a ruptured plaque at the junction between the proximal and mid LAD with an active thrombus accompanied by DARRIUS?3 flow. There was moderate distal left main disease, severe disease and a moderate to large ramus intermedius, severe disease and a moderate first obtuse marginal artery, moderate to severe disease in the proximal nondominant right coronary artery, and an elevated LVEDP. Cardiology felt she should be started on dual antiplatelet therapy for 1 year as well as a high intensity statin. They also wanted to maximize antianginal medications. By 04/03/2023, she was feeling well and had no new complaints. Her oxygen dropped into the 80s on room air and she had to be placed back on 2 L. She continued with a cough and wheezing. She was stable to be discharged home and will follow-up with both cardiology and in the office of [facility]. Exam Data for Last 24 hours Vital signs and Labs for Last 24 Hours: Temp Pulse Resp BP Pulse Ox O2 Del Method O2 Flow Rate 97.9 F 74 17 106/56 L 90 L Nasal Cannula 2 04/03/23 07:36 04/03/23 09:51 04/03/23 07:36 04/03/23 07:36 04/03/23 09:51 04/03/23 11:20 04/03/23 11:20 FiO2 28 02/11/24 19:32 Microbiology Reports for the Last 24 Hours: Microbiology 04/01/23 16:15 Sputum - Expectorated Sputum Gram Stain - Final 04/01/23 16:15 Sputum - Expectorated Sputum Sputum Culture - Final Narrative: Constitutional Constitutional: no acute distress *Routine HEENT Exam Head: Present normocephalic Eye: Present EOMI and PERRL ENT: Present mucous membranes moist *Routine Neck Exam Neck: Present supple; Absent lymphadenopathy *Routine Respiratory Exam Respiratory: Present CTA bilaterally *Routine Cardiovascular Exam Cardiovascular: Present RRR *Routine Abdominal Exam Abdominal: Present soft and normoactive bowel sounds; Absent tenderness *Routine Rectal Exam Rectal:: deferred *Routine Genitalia Exam Genitalia:: deferred *Routine Extremities Exam Extremities: Absent cyanosis, clubbing or edema Comments: 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 *Routine Skin Exam Skin: Present warm; Absent rash *Routine Neurological Exam Neurological: Present alert and oriented X3 DS: Diagnosis Discharge Diagnosis (1) Acute hypoxemic respiratory failure: Status: Acute Code(s): J96.01 - Acute respiratory failure with hypoxia (2) NSTEMI (non-ST elevated myocardial infarction): Status: Acute Code(s): I21.4 - Non-ST elevation (NSTEMI) myocardial infarction (3) Acute exacerbation of chronic obstructive pulmonary disease: Status: Acute Code(s): J44.1 - Chronic obstructive pulmonary disease with (acute) exacerbation (4) Hyperlipidemia: Status: Chronic Code(s): E78.5 - Hyperlipidemia, unspecified (5) Hypertension: Status: Chronic Code(s): I10 - Essential (primary) hypertension (6) Type 2 diabetes mellitus: Status: Chronic Code(s): E11.9 - Type 2 diabetes mellitus without complications Qualifiers: Diabetes mellitus complication detail: with foot ulcer Diabetes mellitus correction insulin use: with truck terminal 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 Qualified Code(s): E11.621 - Type 2 diabetes mellitus with foot ulcer; L97.509 - Non-pressure chronic ulcer of other part of unspecified foot with unspecified severity; Z79.4 - halfway (current) use of insulin (7) PAD (peripheral artery disease): Status: Acute Code(s): I73.9 - Peripheral vascular disease, unspecified (8) Tobacco abuse: Status: Acute Code(s): Z72.0 - Tobacco use (9) CAD (coronary artery disease): Status: Acute Code(s): I25.10 - Atherosclerotic heart disease of [place] coronary artery without angina pectoris Meds Home Medications and Allergies Home Medications Medication Instructions Recorded Confirmed Type carvedilol 6.25 mg tablet 6.25 mg PO BID High blood pressure 05/29/21 03/31/23 History aspirin 81 mg tablet,delayed 81 mg PO DAILY heart health 08/29/21 03/31/23 History release insulin glargine 100 unit/mL (3 20 unit SQ HS Diabetes 08/29/21 03/31/23 History mL) subcutaneous pen lisinopril 40 mg tablet 40 mg PO DAILY High blood pressure 09/11/21 03/31/23 History metformin 500 mg tablet,extended 1,000 mg PO BID Diabetes 10/30/21 03/31/23 History release 24 hr atorvastatin 80 mg tablet 80 mg PO HS #30 tabs 04/03/23 Rx azithromycin 500 mg tablet 500 mg PO DAILY 3 days #3 tabs 04/03/23 Rx (Zithromax TRI-JAGDEEP) clopidogrel 75 mg tablet 75 mg PO DAILY #30 tabs 04/03/23 Rx dexamethasone 2 mg tablet 2 mg PO BID #10 tabs 04/03/23 Rx empagliflozin 10 mg tablet 10 mg PO DAILY #30 tabs 04/03/23 Rx (Jardiance) ranolazine 500 mg tablet,extended 500 mg PO BID #60 tabs 04/03/23 Rx release,12 hr New Prescriptions to Start Prescriptions: atorvastatin [place],Travis azithromycin [Zithromax TRI-JAGDEEP] [place],Travis clopidogrel [place],Travis dexamethasone [place],Travis empagliflozin [Jardiance] [place],Travis ranolazine [place],Travis Allergies Allergy/AdvReac Type Severity Reaction Status Date / Time daptomycin Allergy Severe causes Verified 11/27/21 07:17 extreme muscle spasms vancomycin Allergy Verified 11/27/21 07:17 Discharge Plan Disposition Patient Disposition: Home, Self-Care Condition: Fair Discharge Order Discharge Orders: Discharge Order (Routine); Ordered 04/03/23 Ordered By: Travis Nelson Follow up Plan Follow up with: Gio Driver MD [Primary Care Provider] - 04/16/23 11:00 am Cliff Wallis MD [Staff Physician] - 04/09/23 8:30 am Prescriptions/Medication Reconciliation: New clopidogrel 75 mg tablet 75 mg PO DAILY Qty: 30 0RF atorvastatin 80 mg tablet 80 mg PO HS Qty: 30 0RF Jardiance 10 mg tablet 10 mg PO DAILY Qty: 30 0RF ranolazine 500 mg tablet extended release 12 hr 500 mg PO BID Qty: 60 0RF azithromycin [Zithromax TRI-JAGDEEP] 500 mg tablet 500 mg PO DAILY 3 Days Qty: 3 0RF dexamethasone 2 mg tablet 2 mg PO BID Qty: 10 0RF Continued metformin 500 mg tablet extended release 24 hr 1,000 mg PO BID carvedilol 6.25 mg tablet 6.25 mg PO BID lisinopril 40 mg tablet 40 mg PO DAILY aspirin 81 MG tablet,delayed release (DR/EC) 81 mg PO DAILY insulin glargine 100 UNIT/ML insulin pen 20 unit SQ HS Discontinued rosuvastatin 10 mg tablet 10 mg PO QODHS amlodipine 10 MG tablet 10 mg PO DAILY Problem Reconciliation Problems Reviewed?: Yes Patient Discharge Instructions ACTIVITY: Continue current activity DIET: cardiac Additional Instructions: Supplemental oxygen at 2 L/min/nc, smoking cessation education Patient Instructions: Smoking Cessation for Older Adults: It's Not Too Late!, Cardiac Catheterization, DI for Chronic Obstructive Pulmonary Disease, DI for Cardiac Catheterization, Smoking and Smoking Cessation in Relation to Mortality in Women, DI for Surgical Site Infection, DI for Post-Surgical Bleeding Providers Primary Care Provider: Gio Driver Admit Provider: Travis Nelson Attending Provider: Travis Nelson
== END 2023-04-03 13:10 | disposition home or self-care (01) | DRG 280 ==
LOC: ER 06:50 → 2ND 07:14
PROVIDERS: Internal Medicine; Nurse Practitioner; Admitting Provider Family Medicine; Emergency Provider Emergency Medicine; PCP Family Medicine; Visit Provider Family Medicine
PROC: 4A023N7 Measurement of Cardiac Sampling and Pressure, Left Heart, Percutaneous Approach (ICD-10-PCS; principal; 2023-04-01 14:45)
DX: I21.4 Non-ST elevation (NSTEMI) myocardial infarction (principal); J96.01 Acute respiratory failure with hypoxia; J44.1 Chronic obstructive pulmonary disease with (acute) exacerbation; I73.9 Peripheral vascular disease, unspecified; E11.621 Type 2 diabetes mellitus with foot ulcer; I25.10 Atherosclerotic heart disease of native coronary artery without angina pectoris; L97.509 Non-pressure chronic ulcer of other part of unspecified foot with unspecified severity; Z79.4 Long term (current) use of insulin; I10 Essential (primary) hypertension; E78.5 Hyperlipidemia, unspecified; E11.51 Type 2 diabetes mellitus with diabetic peripheral angiopathy without gangrene; Z91.199 Patient's noncompliance with other medical treatment and regimen due to unspecified reason; F17.210 Nicotine dependence, cigarettes, uncomplicated
CPT/HCPCS: 36415; 71045; 80048; 80053; 82803; 82962; 83036; 83722; 84484; 85025; 87070; 87205; 87636; 93005; 93306; 93458; 94640; 94760; 94761; 99152; 99291; C1725; C1769; J0696; J1644; J3475; Q9967

== ENCOUNTER 2023-08-07 07:46 | Outpatient (CLI) | payer MEDICARE, SELFPAY ==
[2023-08-07 08:30] VITALS: PULSE 71; PULSE 76
[2023-08-07] MEDS: ALBUTEROL 0.083% 2.5 MG/3 ML NEB IH (08:30)
--- NOTE | 2023-08-07 09:23 | CT_ITS ---
FINAL REPORT TECHNIQUE: Axial images were obtained from the lung apex to the mid abdomen by computed tomography. This study was performed with techniques to keep radiation doses as low as reasonably achievable (ALARA). Individualized dose reduction techniques using automated exposure control or adjustment of mA and/or kV according to the patient's size were employed. CLINICAL HISTORY: lung cancer screening current smoker 1ppd x45 years COMPARISON: 08/07/2021 FINDINGS: CHEST CT LOW DOSE CTDI vol (mGy): 2.90 DLP (mGy-cm): 101.34 There is no axillary adenopathy. There is no hilar or mediastinal adenopathy. The heart is normal in size. There is advanced coronary artery plaque disease. There is no pericardial or pleural effusion. There are few small 4 mm or less nodules in the right lower lobe, stable from previous. Left lower lobe nodule measures 2 mm, unchanged from previous. No new mass or nodule is identified. Note is made of mild emphysema. Limited images of the upper abdomen demonstrate a left adrenal mass, similar to prior and probably an adenoma.. IMPRESSION: Stable pulmonary nodules. Lung RADS category 2. Recommend 12 month follow-up low-dose chest CT. Reviewed, Interpreted and Dictated by Vero Mars MD Transcribed by Debbie Cottrell Authenticated and [facility]
== END 2023-08-07 23:59 | disposition home or self-care (01) ==
LOC: RT 07:47
PROVIDERS: PCP Family Medicine; Visit Provider Internal Medicine Pulmonary Disease
DX: R06.09 Other forms of dyspnea (principal); Z87.891 Personal history of nicotine dependence
CPT/HCPCS: 71271; 94060; 94618; 94640; 94726; 94729; J7613